=== PATIENT | female | born 1960 | race African-American/Black ===

== ENCOUNTER 2016-11-04 01:58 | Emergency (ER) | payer BC, MEDICAID, OTHER, SELFPAY ==
[2016-11-04] MEDS ORDERED: METOCLOPRAMIDE INJ 10MG/2ML VIAL (J2765) As Ordered ONE (03:09)
[2016-11-04] MEDS ORDERED: MORPHINE 2 MG/ML 1ML SYRINGE As Ordered ONE (03:09)
[2016-11-04 03:36] LABS: BASO % 0.5 % (0.0-1.0); EOS # 0.1 K/mm3 (0.0-0.50); EOS % 2.8 % (0.0-3.0); LARGE UNSTAINED CELL # 0.1 K/mm3 (0.0-0.4); LARGE UNSTAINED CELL % 2.3 % (0.0-4.0); LYMPH # 1.2 K/mm3 (1.5-4.5); LYMPH % 28.8 % (24.0-44.0); MEAN CORPUSCULAR HEMOGLOBIN 31.4 pg (27.0-33.0); MEAN CORPUSCULAR HGB CONC 32.9 g/dl (32.0-36.5); MEAN CORPUSCULAR VOLUME 95.3 fl (80.0-96.0); MONO # 0.2 K/mm3 (0.0-0.8); NEUTROPHILS # 2.5 K/mm3 (1.8-7.7); NEUTROPHILS % 60.6 % (36.0-66.0); PLATELET COUNT, AUTOMATED 230 k/mm3 (150-450); RED CELL DISTRIBUTION WIDTH 12.6 % (11.5-14.5); WHITE BLOOD COUNT 4.1 K/mm3 (4.0-10.0)
[2016-11-04 03:46] LABS: ALBUMIN 3.9 GM/DL (3.2-5.2); ALBUMIN/GLOBULIN RATIO 1.18 (1.00-1.93); ALKALINE PHOSPHATASE 87 U/L (45-117); ALT/SGPT 33 U/L (12-78); AMYLASE 71 U/L (25-115); ANION GAP 10 MEQ/L (8-16); AST/SGOT 30 U/L (15-37); BILIRUBIN,DIRECT < 0.1 MG/DL (0.0-0.2); BILIRUBIN,TOTAL 0.2 MG/DL (0.2-1.0); BLOOD UREA NITROGEN 13 MG/DL (7-18); CALCIUM LEVEL 8.1 MG/DL (8.5-10.1); CARBON DIOXIDE LEVEL 23 MEQ/L (21-32); CHLORIDE LEVEL 112 MEQ/L (98-107); CREATININE FOR GFR 0.98 MG/DL (0.55-1.02); GLOMERULAR FILTRATION RATE > 60.0 (>51); GLUCOSE, FASTING 126 MG/DL (70-105); POTASSIUM SERUM 3.9 MEQ/L (3.5-5.1); SODIUM LEVEL 145 MEQ/L (136-145); TOTAL PROTEIN 7.2 GM/DL (6.4-8.2)
--- NOTE | 2016-11-04 06:59 | EDDOCDS ---
Nurse's Notes [facility] Name: Paty Leon Age: 56 yrs Sex: Female : 1960 Arrival Date: 11/04/2016 Time: 01:58 Bed 8 Private MD: Diagnosis: Other specified noninfective gastroenteritis and colitis Presentation: 11/04 02:02 Presenting complaint: Patient states: she has had nausea and vomiting all day started cz with diarrhea tonight, headache about 20 minutes ago no illness at home but co-workers having same issues. Adult Sepsis Screening: The patient does not have new or worsening altered mentation. Patient's respiratory rate is less than 22. Systolic blood pressure is greater than 100. Patient has a qSOFA score of 0- Negative Sepsis Screen. Suicide/Homicide risk assessment- the patient denies having any suicidal and/or homicidal ideations and does not present with any other emotional, behavioral or mental health complaints. Status: Patient is not a support service tech or dependent. Transition of care: patient was not received from another setting of care. 02:02 Acuity: SARA Level 3 cz 02:02 Method Of Arrival: Walkin/Carried/Asstd cz Triage Assessment: 02:06 General: Appears uncomfortable, Behavior is appropriate for age. Pain: Location: face cz Pain currently is 10 out of 10 on a pain scale. HIV screening NA for this visit Offered previously. 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 medication for high blood pressure - PMHx: Hypertension; - PSHx: none; - Social history: Smoking status: Patient uses tobacco products, light tobacco smoker. No barriers to communication noted, The patient speaks fluent Divehi, Speaks appropriately for age. - Family history: Not pertinent. - : The pt / caregiver states he / she is not on anticoagulants. Home medication list is obtained from the patient. - Exposure Risk Screening:: None identified. Screenin:32 Screening information is obtained from the patient. Fall risk: At risk due to. ko2 Assistance ADL's: requires no assistance with activities of daily living. Abuse/DV Screen: The patient / caregiver reports he/she is: not in a situation that causes fear, pain or injury. Nutritional screening: No deficits noted. Advance Directives: Currently, there is no health care proxy. There is no active DNR order. There is no living will. There is no Power of Mortgage Loan Specialist. home support is adequate. Assessment: 02:31 General: Appears in no apparent distress, Behavior is appropriate for age, cooperative. ko2 Pain: Location: head and abdomen Pain currently is 8 out of 10 on a pain scale. Neurological: Level of Consciousness is awake, alert. Respiratory: Airway is patent Respiratory effort is even, unlabored. GI: Abdomen is non- distended Bowel sounds present X 4 quads. Abd is soft and non tender Reports diarrhea, nausea, vomiting. Derm: Skin is normal. Musculoskeletal: Range of motion intact in all extremities. 03:30 General: Appears in no apparent distress, Behavior is appropriate for age, cooperative. ko2 Pain: Location: abdomen. Neurological: Level of Consciousness is awake, alert. Respiratory: Airway is patent Respiratory effort is even, unlabored. Derm: Skin is normal. 04:30 General: Appears in no apparent distress, Behavior is appropriate for age, cooperative. ko2 Neurological: Level of Consciousness is awake, alert. Respiratory: Airway is patent Respiratory effort is even, unlabored. Derm: Skin is normal. 05:22 General: Appears in no apparent distress, pt currently appears to be asleep on the ko2 stretcher, respirations unlabored. No concerns at this time. . 06:24 General: Appears in no apparent distress, Behavior is appropriate for age, cooperative. ko2 Pain: Location: abdomen. Neurological: Level of Consciousness is awake, alert. Respiratory: Airway is patent Respiratory effort is even, unlabored. Derm: Skin is normal. 06:56 General:. ko2 Vital Signs: 02:06 BP 153 / 78; Pulse 94; Resp 16; Temp 96.4; Pulse Ox 97% on R/A; Weight 63.5 kg; Height cz 5 ft. 3 in. (160.02 cm); 03:14 BP 142 / 78 (auto/); ko2 03:15 Pulse 90 MON; Pulse Ox 97% ; ko2 03:34 BP 140 / 65 (auto/); ko2 03:34 Pulse 94 MON; Pulse Ox 96% ; ko2 03:54 BP 126 / 61 (auto/); ko2 03:54 Pulse 92 MON; Pulse Ox 92% ; ko2 04:14 BP 136 / 72 (auto/); ko2 04:14 Pulse 92 MON; Pulse Ox 93% ; ko2 04:34 BP 151 / 73 (auto/); ko2 04:34 Pulse 92 MON; Pulse Ox 94% ; ko2 04:53 Pulse 92 MON; Pulse Ox 94% ; ko2 04:54 BP 135 / 78 (auto/); ko2 06:56 BP 110 / 78; Pulse 90; Resp 16; Temp 100(TE); Pulse Ox 97% ; Pain 2/10; ko2 02:06 Body Mass Index 24.80 (63.50 kg, 160.02 cm) cz Vitals: 02:06 Log In Time: November 04, 2016 at 02:00. cz ED Course: 01:59 Patient visited by Celeste Kurtz Reg. hs2 01:59 Patient moved to Waiting hs2 02:01 Patient moved to Triage 1 cz 02:05 Triage Initiated cz 02:08 Katt Hernandez RN is Primary Nurse. cz 02:08 Sheryl Garcia RN is Primary Nurse. cz 02:08 Patient moved to 8 cz 02:21 Lalo Anderson DO is Attending Physician. cs11 02:21 Patient visited by Lalo Anderson DO. cs11 02:32 Inserted saline lock: 20 gauge in right antecubital area and blood collected. The ko2 patient tolerated the procedure well. 03:05 Lipase Sent. ko2 03:05 Amylase Sent. ko2 03:05 Liver Profile Sent. ko2 03:05 MED Profile Sent. ko2 03:05 CBC with Diff Sent. ko2 03:21 Patient visited by Sheryl Garcia RN. ko2 03:33 Patient visited by Sheryl Garcia RN. ko2 04:26 [facility] Payment Agreement was scanned into [employer] and attached to record. [facility] 04:32 Patient visited by Sheryl Garcia RN. ko2 04:40 Primary Nurse role handed off by Katt Hernandez RN ko2 05:12 The patient / caregiver is instructed regarding the plan of care and ED course. ko2 05:22 Patient visited by Sheryl Garcia RN. ko2 06:24 Patient visited by Sheryl Garcia RN. ko2 06:57 Discontinued lock intact, bleeding controlled, pressure dressing applied, No ko2 redness/swelling at site. No procedures done that require assistance. Administered Medications: 03:17 Drug: NS 0.9% 1000 ml [sodium chloride 0.9 % intravenous solution] Route: IV; Rate: mlc bolus; Site: right antecubital; 03:17 Drug: Metoclopramide 10 mg [metoclopramide 5 mg/mL injection solution] Route: IV; Rate: mlc 40 mg/hr; Infused Over: 15 mins; Site: right antecubital; 03:18 Drug: morphine 2 mg [morphine 2 mg/mL intravenous cartridge (1 mL)] Route: IVP; Site: mlc right antecubital; Order Results: Lab Order: CBC with Diff; SPEC'M 11/04/16 02:29 Test: WHITE BLOOD COUNT; Value: 4.1; Range: 4.0-10.0; Units: K/mm3; Status: F Test: RED BLOOD COUNT; Value: 4.27; Range: 4.00-5.40; Units: M/mm3; Status: F Test: HEMOGLOBIN; Value: 13.4; Range: 12.0-16.0; Units: g/dl; Status: F Test: HEMATOCRIT; Value: 40.7; Range: 36.0-47.0; Units: %; Status: F Test: MEAN CORPUSCULAR VOLUME; Value: 95.3; Range: 80.0-96.0; Units: fl; Status: F Test: MEAN CORPUSCULAR HEMOGLOBIN; Value: 31.4; Range: 27.0-33.0; Units: pg; Status: F Test: MEAN CORPUSCULAR HGB CONC; Value: 32.9; Range: 32.0-36.5; Units: g/dl; Status: F Test: RED CELL DISTRIBUTION WIDTH; Value: 12.6; Range: 11.5-14.5; Units: %; Status: F Test: PLATELET COUNT, AUTOMATED; Value: 230; Range: 150-450; Units: k/mm3; Status: F Test: NEUTROPHILS %; Value: 60.6; Range: 36.0-66.0; Units: %; Status: F Test: LYMPH %; Value: 28.8; Range: 24.0-44.0; Units: %; Status: F Test: MONO %; Value: 5.0; Range: 0.0-5.0; Units: %; Status: F Test: EOS %; Value: 2.8; Range: 0.0-3.0; Units: %; Status: F Test: BASO %; Value: 0.5; Range: 0.0-1.0; Units: %; Status: F Test: LARGE UNSTAINED CELL %; Value: 2.3; Range: 0.0-4.0; Units: %; Status: F Test: NEUTROPHILS #; Value: 2.5; Range: 1.8-7.7; Units: K/mm3; Status: F Test: LYMPH #; Value: 1.2; Range: 1.5-4.5; Abnormal: Below low normal; Units: K/mm3; Status: F Test: MONO #; Value: 0.2; Range: 0.0-0.8; Units: K/mm3; Status: F Test: EOS #; Value: 0.1; Range: 0.0-0.50; Units: K/mm3; Status: F Test: BASO #; Value: 0.0; Range: 0.0-0.2; Units: K/mm3; Status: F Test: LARGE UNSTAINED CELL #; Value: 0.1; Range: 0.0-0.4; Units: K/mm3; Status: F Lab Order: [facility]; [facility] 11/04/16 02:29 Test: GLUCOSE, FASTING; Value: 126; Range: 70-105; Abnormal: Above high normal; Units: MG/DL; Status: F Test: BLOOD UREA NITROGEN; Value: 13; Range: 7-18; Units: MG/DL; Status: F Test: CREATININE FOR GFR; Value: 0.98; Range: 0.55-1.02; Units: MG/DL; Status: F Test: GLOMERULAR FILTRATION RATE; Value: > 60.0; Range: >51; Status: F Test: SODIUM LEVEL; Value: 145; Range: 136-145; Units: MEQ/L; Status: F Test: POTASSIUM SERUM; Value: 3.9; Range: 3.5-5.1; Units: MEQ/L; Status: F Test: CHLORIDE LEVEL; Value: 112; Range: 98-107; Abnormal: Above high normal; Units: MEQ/L; Status: F Test: CARBON DIOXIDE LEVEL; Value: 23; Range: 21-32; Units: MEQ/L; Status: F Test: ANION GAP; Value: 10; Range: 8-16; Units: MEQ/L; Status: F Test: CALCIUM LEVEL; Value: 8.1; Range: 8.5-10.1; Abnormal: Below low normal; Units: MG/DL; Status: F Test Note: ; Units are mL/min/1.73 m2 Chronic Kidney Disease Staging per NKF: Stage I & II GFR >=60 Normal to Mildly Decreased Stage III GFR 30-59 Moderately Decreased Stage IV GFR 15-29 Severely Decreased Stage V GFR <15 Very Little GFR Left ESRD GFR <15 on NETWORK SYSTEMS INTEGRATOR Lab Order: Liver Profile; SPEC11/04/16 02:29 Test: AST/SGOT; Value: 30; Range: 15-37; Units: U/L; Status: F Test: ALT/SGPT; Value: 33; Range: 12-78; Units: U/L; Status: F Test: ALKALINE PHOSPHATASE; Value: 87; Range: 45-117; Units: U/L; Status: F Test: BILIRUBIN,TOTAL; Value: 0.2; Range: 0.2-1.0; Units: MG/DL; Status: F Test: BILIRUBIN,DIRECT; Value: < 0.1; Range: 0.0-0.2; Units: MG/DL; Status: F Test: TOTAL PROTEIN; Value: 7.2; Range: 6.4-8.2; Units: GM/DL; Status: F Test: ALBUMIN; Value: 3.9; Range: 3.2-5.2; Units: GM/DL; Status: F Test: ALBUMIN/GLOBULIN RATIO; Value: 1.18; Range: 1.00-1.93; Status: F Lab Order: Amylase; SPEC11/04/16 02:29 Test: AMYLASE; Value: 71; Range: 25-115; Units: U/L; Status: F Lab Order: Lipase; SPEC11/04/16 02:29 Test: LIPASE; Value: 231; Range: 73-393; Units: U/L; Status: F Outcome: 06:38 Discharge ordered by Provider. [facility] 06:57 Discharge Assessment: Patient awake, alert and oriented x 3. No cognitive and/or ko2 functional deficits noted. Patient verbalized understanding of disposition instructions. patient administered narcotics - yes. Pt provided with safe discharge. The following High Risk Discharge criteria are identified: None. Discharged to home ambulatory. Condition: stable. Discharge instructions given to patient, Instructed on discharge instructions, follow up and referral plans. medication usage, Demonstrated understanding of instructions, medications, Pt was receptive of discharge instructions/ teaching. Prescriptions given X 1. No special radiology studies were completed. Property sent home with patient. 06:58 Patient left the ED. ko2 Signatures: Rainer Howard RN RN cz Lalo Anderson DO DO cs11 Kaye Rodríguez RN RN [facility] Sheryl Garcia RN RN ko2 Leatha Sanchez Hillary, Reg Reg hs2 Corrections: (The following items were deleted from the chart) 02:12 02:02 Presenting complaint: Patient states: she has had nausea and vomiting all day and cz started with headache about 20 minutes ago cz MTDD
--- NOTE | 2016-11-04 06:59 | EDDOCDS ---
Physician Documentation [facility] Name: Paty Leon Age: 56 yrs Sex: Female : 1960 Arrival Date: 11/04/2016 Time: 01:58 Bed 8 Private MD: Disposition: 11/04/16 06:38 Discharged to Home/Self Care. Impression: Other specified noninfective gastroenteritis and colitis. - Condition is Stable. - Prescriptions for Reglan 10 mg Oral Tablet - take 1 tablet by ORAL route every 6 hours . take 30 minutes before meals and at bedtime; 100 tablet. - Medication Reconciliation, Local Pharmacy Hours, Work Release Form - 1 day form. - Follow up: Private Physician; When: Call to arrange an appointment; Reason: Recheck today's complaints. - Problem is new. - Symptoms have improved. Historical: - Allergies: No known drug Allergies; - Home Meds: 1. medication for high blood pressure - PMHx: Hypertension; - PSHx: none; - Social history: Smoking status: Patient uses tobacco products, light tobacco smoker. No barriers to communication noted, The patient speaks fluent Malawian, Speaks appropriately for age. - Family history: Not pertinent. - : The pt / caregiver states he / she is not on anticoagulants. Home medication list is obtained from the patient. - Exposure Risk Screening:: None identified. 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 3 in. (160.02 cm); 03:14 BP 142 / 78 (auto/); ko2 03:15 Pulse 90 MON; Pulse Ox 97% ; ko2 03:34 BP 140 / 65 (auto/); ko2 03:34 Pulse 94 MON; Pulse Ox 96% ; ko2 03:54 BP 126 / 61 (auto/); ko2 03:54 Pulse 92 MON; Pulse Ox 92% ; ko2 04:14 BP 136 / 72 (auto/); ko2 04:14 Pulse 92 MON; Pulse Ox 93% ; ko2 04:34 BP 151 / 73 (auto/); ko2 04:34 Pulse 92 MON; Pulse Ox 94% ; ko2 04:53 Pulse 92 MON; Pulse Ox 94% ; ko2 04:54 BP 135 / 78 (auto/); ko2 06:56 BP 110 / 78; Pulse 90; Resp 16; Temp 100(TE); Pulse Ox 97% ; Pain 2/10; ko2 02:06 Body Mass Index 24.80 (63.50 kg, 160.02 cm) cz MDM: 03:00 NS 0.9% 1000 ml IV at bolus once ordered. cs11 03:00 Metoclopramide 10 mg IV at 40 mg/hr once over 15 mins ordered. cs11 03:01 CBC with Diff Ordered. EDMS 03:01 MED Profile Ordered. EDMS 03:01 morphine 2 mg IVP once ordered. cs11 03:01 Liver Profile Ordered. EDMS 03:01 Amylase Ordered. EDMS 03:01 Lipase Ordered. EDMS 03:38 Financial registration complete. [facility] [address] 04:10 CBC with Diff Reviewed. cs11 04:10 MED Profile Reviewed. cs11 04:10 Liver Profile Reviewed. cs11 04:10 Amylase Reviewed. cs11 04:10 Lipase Reviewed. [facility] 04:26 [facility] Payment Agreement was scanned into [employer] and attached to record. [facility] [address] Administered Medications: 03:17 Drug: NS 0.9% 1000 ml [sodium chloride 0.9 % intravenous solution] Route: IV; Rate: mlc bolus; Site: right antecubital; 03:17 Drug: Metoclopramide 10 mg [metoclopramide 5 mg/mL injection solution] Route: IV; Rate: mlc 40 mg/hr; Infused Over: 15 mins; Site: right antecubital; 03:18 Drug: morphine 2 mg [morphine 2 mg/mL intravenous cartridge (1 mL)] Route: IVP; Site: mlc right antecubital; Signatures: Dispatcher [employer] EDMS Rainer Howard RN RN cz Schiff, Craig, DO DO cs11 Sheryl Garcia RN RN ko2 Hook, Sandra [facility] [address] Kaye Rodríguez RN The chart was reviewed and I authenticate all verbal orders and agree with the evaluation and treatment provided.Attachments: 04:26 [facility] Payment Agreement [facility] [address] MTDD
--- NOTE | 2016-11-06 07:59 | EDDOCDS ---
Physician Documentation [facility] Name: Paty Leon Age: 56 yrs Sex: Female : 1960 Arrival Date: 11/04/2016 Time: 01:58 Bed 8 Private MD: Disposition: 11/04/16 06:38 Discharged to Home/Self Care. Impression: Other specified noninfective gastroenteritis and colitis. - Condition is Stable. - Prescriptions for Reglan 10 mg Oral Tablet - take 1 tablet by ORAL route every 6 hours . take 30 minutes before meals and at bedtime; 100 tablet. - Medication Reconciliation, Local Pharmacy Hours, Work Release Form - 1 day form. - Follow up: Private Physician; When: Call to arrange an appointment; Reason: Recheck today's complaints. - Problem is new. - Symptoms have improved. Historical: - Allergies: No known drug Allergies; - Home Meds: 1. medication for high blood pressure - PMHx: Hypertension; - PSHx: none; - Social history: Smoking status: Patient uses tobacco products, light tobacco smoker. No barriers to communication noted, The patient speaks fluent Djiboutian, Speaks appropriately for age. - Family history: Not pertinent. - : The pt / caregiver states he / she is not on anticoagulants. Home medication list is obtained from the patient. - Exposure Risk Screening:: None identified. 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 3 in. (160.02 cm); 03:14 BP 142 / 78 (auto/); ko2 03:15 Pulse 90 MON; Pulse Ox 97% ; ko2 03:34 BP 140 / 65 (auto/); ko2 03:34 Pulse 94 MON; Pulse Ox 96% ; ko2 03:54 BP 126 / 61 (auto/); ko2 03:54 Pulse 92 MON; Pulse Ox 92% ; ko2 04:14 BP 136 / 72 (auto/); ko2 04:14 Pulse 92 MON; Pulse Ox 93% ; ko2 04:34 BP 151 / 73 (auto/); ko2 04:34 Pulse 92 MON; Pulse Ox 94% ; ko2 04:53 Pulse 92 MON; Pulse Ox 94% ; ko2 04:54 BP 135 / 78 (auto/); ko2 06:56 BP 110 / 78; Pulse 90; Resp 16; Temp 100(TE); Pulse Ox 97% ; Pain 2/10; ko2 02:06 Body Mass Index 24.80 (63.50 kg, 160.02 cm) cz MDM: 03:00 NS 0.9% 1000 ml IV at bolus once ordered. cs11 03:00 Metoclopramide 10 mg IV at 40 mg/hr once over 15 mins ordered. cs11 03:01 CBC with Diff Ordered. EDMS 03:01 MED Profile Ordered. EDMS 03:01 morphine 2 mg IVP once ordered. cs11 03:01 Liver Profile Ordered. EDMS 03:01 Amylase Ordered. EDMS 03:01 Lipase Ordered. EDMS 03:38 Financial registration complete. [facility] 04:10 CBC with Diff Reviewed. cs11 04:10 MED Profile Reviewed. cs11 04:10 Liver Profile Reviewed. cs11 04:10 Amylase Reviewed. cs11 04:10 Lipase Reviewed. [facility] 04:26 [facility] Payment Agreement was scanned into [employer] and attached to record. [facility] 15:49 T-Sheet-- Draft Copy was scanned into [employer] and attached to record. klr Administered Medications: 03:17 Drug: NS 0.9% 1000 ml [sodium chloride 0.9 % intravenous solution] Route: IV; Rate: mlc bolus; Site: right antecubital; 03:17 Drug: Metoclopramide 10 mg [metoclopramide 5 mg/mL injection solution] Route: IV; Rate: mlc 40 mg/hr; Infused Over: 15 mins; Site: right antecubital; 03:18 Drug: morphine 2 mg [morphine 2 mg/mL intravenous cartridge (1 mL)] Route: IVP; Site: mlc right antecubital; Signatures: Dispatcher [employer] EDMS Rainer Howard RN RN cz Schiff, Craig, DO DO csSheryl Nguyen RN RN ko2 Hook, Sandra [facility] Jailene Evans Mandy RN [facility] The chart was reviewed and I authenticate all verbal orders and agree with the evaluation and treatment provided.Attachments: 04:26 [facility] Payment Agreement [facility] 15:49 T-Sheet-- Draft Copy klr Chart Complete MTDD
--- NOTE | 2016-11-06 07:59 | EDDOCDS ---
Physician Documentation [facility] Name: Paty Leon Age: 56 yrs Sex: Female : 1960 Arrival Date: 11/04/2016 Time: 01:58 Bed 8 Private MD: Disposition: 11/04/16 06:38 Discharged to Home/Self Care. Impression: Other specified noninfective gastroenteritis and colitis. - Condition is Stable. - Prescriptions for Reglan 10 mg Oral Tablet - take 1 tablet by ORAL route every 6 hours . take 30 minutes before meals and at bedtime; 100 tablet. - Medication Reconciliation, Local Pharmacy Hours, Work Release Form - 1 day form. - Follow up: Private Physician; When: Call to arrange an appointment; Reason: Recheck today's complaints. - Problem is new. - Symptoms have improved. Historical: - Allergies: No known drug Allergies; - Home Meds: 1. medication for high blood pressure - PMHx: Hypertension; - PSHx: none; - Social history: Smoking status: Patient uses tobacco products, light tobacco smoker. No barriers to communication noted, The patient speaks fluent Tongan, Speaks appropriately for age. - Family history: Not pertinent. - : The pt / caregiver states he / she is not on anticoagulants. Home medication list is obtained from the patient. - Exposure Risk Screening:: None identified. 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 3 in. (160.02 cm); 03:14 BP 142 / 78 (auto/); ko2 03:15 Pulse 90 MON; Pulse Ox 97% ; ko2 03:34 BP 140 / 65 (auto/); ko2 03:34 Pulse 94 MON; Pulse Ox 96% ; ko2 03:54 BP 126 / 61 (auto/); ko2 03:54 Pulse 92 MON; Pulse Ox 92% ; ko2 04:14 BP 136 / 72 (auto/); ko2 04:14 Pulse 92 MON; Pulse Ox 93% ; ko2 04:34 BP 151 / 73 (auto/); ko2 04:34 Pulse 92 MON; Pulse Ox 94% ; ko2 04:53 Pulse 92 MON; Pulse Ox 94% ; ko2 04:54 BP 135 / 78 (auto/); ko2 06:56 BP 110 / 78; Pulse 90; Resp 16; Temp 100(TE); Pulse Ox 97% ; Pain 2/10; ko2 02:06 Body Mass Index 24.80 (63.50 kg, 160.02 cm) cz MDM: 03:00 NS 0.9% 1000 ml IV at bolus once ordered. cs11 03:00 Metoclopramide 10 mg IV at 40 mg/hr once over 15 mins ordered. cs11 03:01 CBC with Diff Ordered. EDMS 03:01 MED Profile Ordered. EDMS 03:01 morphine 2 mg IVP once ordered. cs11 03:01 Liver Profile Ordered. EDMS 03:01 Amylase Ordered. EDMS 03:01 Lipase Ordered. EDMS 03:38 Financial registration complete. [facility] 04:10 CBC with Diff Reviewed. cs11 04:10 MED Profile Reviewed. cs11 04:10 Liver Profile Reviewed. cs11 04:10 Amylase Reviewed. cs11 04:10 Lipase Reviewed. [facility] 04:26 [facility] Payment Agreement was scanned into [employer] and attached to record. [facility] 15:49 T-Sheet-- Draft Copy was scanned into [employer] and attached to record. klr Administered Medications: 03:17 Drug: NS 0.9% 1000 ml [sodium chloride 0.9 % intravenous solution] Route: IV; Rate: mlc bolus; Site: right antecubital; 03:17 Drug: Metoclopramide 10 mg [metoclopramide 5 mg/mL injection solution] Route: IV; Rate: mlc 40 mg/hr; Infused Over: 15 mins; Site: right antecubital; 03:18 Drug: morphine 2 mg [morphine 2 mg/mL intravenous cartridge (1 mL)] Route: IVP; Site: mlc right antecubital; Signatures: Dispatcher [employer] EDMS Rainer Howard RN RN cz Schiff, Craig, DO DO csSheryl Nguyen RN RN ko2 Hook, Sandra [facility] Jailene Evans Mandy RN [facility] The chart was reviewed and I authenticate all verbal orders and agree with the evaluation and treatment provided.Attachments: 04:26 [facility] Payment Agreement [facility] 15:49 T-Sheet-- Draft Copy klr Chart Complete MTDD
--- NOTE | 2016-11-06 07:59 | EDDOCDS ---
Nurse's Notes [facility] Name: Paty Leon Age: 56 yrs Sex: Female : 1960 Arrival Date: 11/04/2016 Time: 01:58 Bed 8 Private MD: Diagnosis: Other specified noninfective gastroenteritis and colitis Presentation: 11/04 02:02 Presenting complaint: Patient states: she has had nausea and vomiting all day started cz with diarrhea tonight, headache about 20 minutes ago no illness at home but co-workers having same issues. Adult Sepsis Screening: The patient does not have new or worsening altered mentation. Patient's respiratory rate is less than 22. Systolic blood pressure is greater than 100. Patient has a qSOFA score of 0- Negative Sepsis Screen. Suicide/Homicide risk assessment- the patient denies having any suicidal and/or homicidal ideations and does not present with any other emotional, behavioral or mental health complaints. 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 Transition of care: patient was not received from another setting of care. 02:02 Acuity: SARA Level 3 cz 02:02 Method Of Arrival: Walkin/Carried/Asstd cz Triage Assessment: 02:06 General: Appears uncomfortable, Behavior is appropriate for age. Pain: Location: face cz Pain currently is 10 out of 10 on a pain scale. HIV screening NA for this visit Offered previously. 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 medication for high blood pressure - PMHx: Hypertension; - PSHx: none; - Social history: Smoking status: Patient uses tobacco products, light tobacco smoker. No barriers to communication noted, The patient speaks fluent Arabic, Speaks appropriately for age. - Family history: Not pertinent. - : The pt / caregiver states he / she is not on anticoagulants. Home medication list is obtained from the patient. - Exposure Risk Screening:: None identified. Screenin:32 Screening information is obtained from the patient. Fall risk: At risk due to. ko2 Assistance ADL's: requires no assistance with activities of daily living. Abuse/DV Screen: The patient / caregiver reports he/she is: not in a situation that causes fear, pain or injury. Nutritional screening: No deficits noted. Advance Directives: Currently, there is no health care proxy. There is no active DNR order. There is no living will. There is no Power of Electronic Imager. home support is adequate. Assessment: 02:31 General: Appears in no apparent distress, Behavior is appropriate for age, cooperative. ko2 Pain: Location: head and abdomen Pain currently is 8 out of 10 on a pain scale. Neurological: Level of Consciousness is awake, alert. Respiratory: Airway is patent Respiratory effort is even, unlabored. GI: Abdomen is non- distended Bowel sounds present X 4 quads. Abd is soft and non tender Reports diarrhea, nausea, vomiting. Derm: Skin is normal. Musculoskeletal: Range of motion intact in all extremities. 03:30 General: Appears in no apparent distress, Behavior is appropriate for age, cooperative. ko2 Pain: Location: abdomen. Neurological: Level of Consciousness is awake, alert. Respiratory: Airway is patent Respiratory effort is even, unlabored. Derm: Skin is normal. 04:30 General: Appears in no apparent distress, Behavior is appropriate for age, cooperative. ko2 Neurological: Level of Consciousness is awake, alert. Respiratory: Airway is patent Respiratory effort is even, unlabored. Derm: Skin is normal. 05:22 General: Appears in no apparent distress, pt currently appears to be asleep on the ko2 stretcher, respirations unlabored. No concerns at this time. . 06:24 General: Appears in no apparent distress, Behavior is appropriate for age, cooperative. ko2 Pain: Location: abdomen. Neurological: Level of Consciousness is awake, alert. Respiratory: Airway is patent Respiratory effort is even, unlabored. Derm: Skin is normal. 06:56 General:. ko2 Vital Signs: 02:06 BP 153 / 78; Pulse 94; Resp 16; Temp 96.4; Pulse Ox 97% on R/A; Weight 63.5 kg; Height cz 5 ft. 3 in. (160.02 cm); 03:14 BP 142 / 78 (auto/); ko2 03:15 Pulse 90 MON; Pulse Ox 97% ; ko2 03:34 BP 140 / 65 (auto/); ko2 03:34 Pulse 94 MON; Pulse Ox 96% ; ko2 03:54 BP 126 / 61 (auto/); ko2 03:54 Pulse 92 MON; Pulse Ox 92% ; ko2 04:14 BP 136 / 72 (auto/); ko2 04:14 Pulse 92 MON; Pulse Ox 93% ; ko2 04:34 BP 151 / 73 (auto/); ko2 04:34 Pulse 92 MON; Pulse Ox 94% ; ko2 04:53 Pulse 92 MON; Pulse Ox 94% ; ko2 04:54 BP 135 / 78 (auto/); ko2 06:56 BP 110 / 78; Pulse 90; Resp 16; Temp 100(TE); Pulse Ox 97% ; Pain 2/10; ko2 02:06 Body Mass Index 24.80 (63.50 kg, 160.02 cm) cz Vitals: 02:06 Log In Time: November 04, 2016 at 02:00. cz ED Course: 01:59 Patient visited by Celeste Kurtz Reg. hs2 01:59 Patient moved to Waiting hs2 02:01 Patient moved to Triage 1 cz 02:05 Triage Initiated cz 02:08 Katt Hernandez RN is Primary Nurse. cz 02:08 Sheryl Garcia RN is Primary Nurse. cz 02:08 Patient moved to 8 cz 02:21 Lalo Anderson DO is Attending Physician. cs11 02:21 Patient visited by Lalo Anderson DO. cs11 02:32 Inserted saline lock: 20 gauge in right antecubital area and blood collected. The ko2 patient tolerated the procedure well. 03:05 Lipase Sent. ko2 03:05 Amylase Sent. ko2 03:05 Liver Profile Sent. ko2 03:05 MED Profile Sent. ko2 03:05 CBC with Diff Sent. ko2 03:21 Patient visited by Sheryl Garcia RN. ko2 03:33 Patient visited by Sheryl Garcia RN. ko2 04:26 [facility] Payment Agreement was scanned into [employer] and attached to record. [facility] 04:32 Patient visited by Sheryl Garcia RN. ko2 04:40 Primary Nurse role handed off by Katt Hernandez RN ko2 05:12 The patient / caregiver is instructed regarding the plan of care and ED course. ko2 05:22 Patient visited by Sheryl Garcia RN. ko2 06:24 Patient visited by Sheryl Garcia RN. ko2 06:57 Discontinued lock intact, bleeding controlled, pressure dressing applied, No ko2 redness/swelling at site. No procedures done that require assistance. 15:49 T-Sheet-- Draft Copy was scanned into [employer] and attached to record. klr Administered Medications: 03:17 Drug: NS 0.9% 1000 ml [sodium chloride 0.9 % intravenous solution] Route: IV; Rate: mlc bolus; Site: right antecubital; 03:17 Drug: Metoclopramide 10 mg [metoclopramide 5 mg/mL injection solution] Route: IV; Rate: mlc 40 mg/hr; Infused Over: 15 mins; Site: right antecubital; 03:18 Drug: morphine 2 mg [morphine 2 mg/mL intravenous cartridge (1 mL)] Route: IVP; Site: mlc right antecubital; Order Results: Lab Order: CBC with Diff; SPEC'M 11/04/16 02:29 Test: WHITE BLOOD COUNT; Value: 4.1; Range: 4.0-10.0; Units: K/mm3; Status: F Test: RED BLOOD COUNT; Value: 4.27; Range: 4.00-5.40; Units: M/mm3; Status: F Test: HEMOGLOBIN; Value: 13.4; Range: 12.0-16.0; Units: g/dl; Status: F Test: HEMATOCRIT; Value: 40.7; Range: 36.0-47.0; Units: %; Status: F Test: MEAN CORPUSCULAR VOLUME; Value: 95.3; Range: 80.0-96.0; Units: fl; Status: F Test: MEAN CORPUSCULAR HEMOGLOBIN; Value: 31.4; Range: 27.0-33.0; Units: pg; Status: F Test: MEAN CORPUSCULAR HGB CONC; Value: 32.9; Range: 32.0-36.5; Units: g/dl; Status: F Test: RED CELL DISTRIBUTION WIDTH; Value: 12.6; Range: 11.5-14.5; Units: %; Status: F Test: PLATELET COUNT, AUTOMATED; Value: 230; Range: 150-450; Units: k/mm3; Status: F Test: NEUTROPHILS %; Value: 60.6; Range: 36.0-66.0; Units: %; Status: F Test: LYMPH %; Value: 28.8; Range: 24.0-44.0; Units: %; Status: F Test: MONO %; Value: 5.0; Range: 0.0-5.0; Units: %; Status: F Test: EOS %; Value: 2.8; Range: 0.0-3.0; Units: %; Status: F Test: BASO %; Value: 0.5; Range: 0.0-1.0; Units: %; Status: F Test: LARGE UNSTAINED CELL %; Value: 2.3; Range: 0.0-4.0; Units: %; Status: F Test: NEUTROPHILS #; Value: 2.5; Range: 1.8-7.7; Units: K/mm3; Status: F Test: LYMPH #; Value: 1.2; Range: 1.5-4.5; Abnormal: Below low normal; Units: K/mm3; Status: F Test: MONO #; Value: 0.2; Range: 0.0-0.8; Units: K/mm3; Status: F Test: EOS #; Value: 0.1; Range: 0.0-0.50; Units: K/mm3; Status: F Test: BASO #; Value: 0.0; Range: 0.0-0.2; Units: K/mm3; Status: F Test: LARGE UNSTAINED CELL #; Value: 0.1; Range: 0.0-0.4; Units: K/mm3; Status: F Lab Order: [facility]; [facility] 11/04/16 02:29 Test: GLUCOSE, FASTING; Value: 126; Range: 70-105; Abnormal: Above high normal; Units: MG/DL; Status: F Test: BLOOD UREA NITROGEN; Value: 13; Range: 7-18; Units: MG/DL; Status: F Test: CREATININE FOR GFR; Value: 0.98; Range: 0.55-1.02; Units: MG/DL; Status: F Test: GLOMERULAR FILTRATION RATE; Value: > 60.0; Range: >51; Status: F Test: SODIUM LEVEL; Value: 145; Range: 136-145; Units: MEQ/L; Status: F Test: POTASSIUM SERUM; Value: 3.9; Range: 3.5-5.1; Units: MEQ/L; Status: F Test: CHLORIDE LEVEL; Value: 112; Range: 98-107; Abnormal: Above high normal; Units: MEQ/L; Status: F Test: CARBON DIOXIDE LEVEL; Value: 23; Range: 21-32; Units: MEQ/L; Status: F Test: ANION GAP; Value: 10; Range: 8-16; Units: MEQ/L; Status: F Test: CALCIUM LEVEL; Value: 8.1; Range: 8.5-10.1; Abnormal: Below low normal; Units: MG/DL; Status: F Test Note: ; Units are mL/min/1.73 m2 Chronic Kidney Disease Staging per NKF: Stage I & II GFR >=60 Normal to Mildly Decreased Stage III GFR 30-59 Moderately Decreased Stage IV GFR 15-29 Severely Decreased Stage V GFR <15 Very Little GFR Left ESRD GFR <15 on DIRECTOR OF COMMUNITY SERVICES Lab Order: Liver Profile; SPEC11/04/16 02:29 Test: AST/SGOT; Value: 30; Range: 15-37; Units: U/L; Status: F Test: ALT/SGPT; Value: 33; Range: 12-78; Units: U/L; Status: F Test: ALKALINE PHOSPHATASE; Value: 87; Range: 45-117; Units: U/L; Status: F Test: BILIRUBIN,TOTAL; Value: 0.2; Range: 0.2-1.0; Units: MG/DL; Status: F Test: BILIRUBIN,DIRECT; Value: < 0.1; Range: 0.0-0.2; Units: MG/DL; Status: F Test: TOTAL PROTEIN; Value: 7.2; Range: 6.4-8.2; Units: GM/DL; Status: F Test: ALBUMIN; Value: 3.9; Range: 3.2-5.2; Units: GM/DL; Status: F Test: ALBUMIN/GLOBULIN RATIO; Value: 1.18; Range: 1.00-1.93; Status: F Lab Order: Amylase; SPEC'11/04/16 02:29 Test: AMYLASE; Value: 71; Range: 25-115; Units: U/L; Status: F Lab Order: Lipase; SPEC'11/04/16 02:29 Test: LIPASE; Value: 231; Range: 73-393; Units: U/L; Status: F Outcome: 06:38 Discharge ordered by Provider. [facility] 06:57 Discharge Assessment: Patient awake, alert and oriented x 3. No cognitive and/or ko2 functional deficits noted. Patient verbalized understanding of disposition instructions. patient administered narcotics - yes. Pt provided with safe discharge. The following High Risk Discharge criteria are identified: None. Discharged to home ambulatory. Condition: stable. Discharge instructions given to patient, Instructed on discharge instructions, follow up and referral plans. medication usage, Demonstrated understanding of instructions, medications, Pt was receptive of discharge instructions/ teaching. Prescriptions given X 1. No special radiology studies were completed. Property sent home with patient. 06:58 Patient left the ED. ko2 Signatures: Rainer Howard, RN RN cz Lalo Anderson, DO cs11 Kaye RodríguezRN RN mlc Sheryl Garcia RN RN ko2 Leatha Sanchez Hillary, Arturo Reg hs2 Jailene Evans Corrections: (The following items were deleted from the chart) 02:12 02:02 Presenting complaint: Patient states: she has had nausea and vomiting all day and cz started with headache about 20 minutes ago cz Chart Complete MTDD
== END 2016-11-04 06:58 | disposition home or self-care (01) ==
LOC: M ED 01:58
DX: K52.9 Noninfective gastroenteritis and colitis, unspecified (principal); I10 Essential (primary) hypertension; F17.200 Nicotine dependence, unspecified, uncomplicated
CPT/HCPCS: 36415; 80048; 80076; 82150; 83690; 85025; 96374; 96375; 99284; J2765

== ENCOUNTER → 2017-10-03 | Outpatient (REF) | payer BC ==
[2017-10-03 12:04] LABS: ALBUMIN 4.3 GM/DL (3.2-5.2); ALBUMIN/GLOBULIN RATIO 1.16 (1.00-1.93); ALKALINE PHOSPHATASE 78 U/L (45-117); ALT/SGPT 21 U/L (12-78); ANION GAP 10 MEQ/L (8-16); AST/SGOT 26 U/L (7-37); BILIRUBIN,TOTAL 0.5 MG/DL (0.2-1.0); BLOOD UREA NITROGEN 29 MG/DL (7-18); CALCIUM LEVEL 9.3 MG/DL (8.5-10.1); CARBON DIOXIDE LEVEL 21 MEQ/L (21-32); CHLORIDE LEVEL 108 MEQ/L (98-107); CHOLESTEROL LEVEL 271 MG/DL (<200); CREATININE FOR GFR 1.29 MG/DL (0.55-1.02); GLOMERULAR FILTRATION RATE 55.1 (>51); GLUCOSE, FASTING 78 MG/DL (70-105); HDL CHOLESTEROL 49 MG/DL (>40); LDL CHOLESTEROL 195.8 MG/DL (<100); NON-HDL-C 222 MG/DL; POTASSIUM SERUM 4.7 MEQ/L (3.5-5.1); SODIUM LEVEL 139 MEQ/L (136-145); TRIGLYCERIDES LEVEL 131 MG/DL (<150)
[2017-10-03 12:24] LABS: BASO % 0.3 % (0.0-1.0); EOS # 0.2 10^3/uL (0.0-0.50); EOS % 2.4 % (0.0-3.0); HEMATOCRIT 35.4 % (36.0-47.0); HEMOGLOBIN 11.9 g/dl (12.0-16.0); IMMATURE GRANULOCYTE % 0.3 % (0-0); LYMPH # 1.5 10^3/uL (1.5-4.5); MEAN CORPUSCULAR HEMOGLOBIN 31.6 pg (27.0-33.0); MEAN CORPUSCULAR HGB CONC 33.6 g/dl (32.0-36.5); MEAN CORPUSCULAR VOLUME 94.1 fl (80.0-96.0); MONO # 0.4 10^3/uL (0.0-0.8); MONO % 7.2 % (0.0-5.0); NEUTROPHILS % 64.8 % (36.0-66.0); PLATELET COUNT, AUTOMATED 264 10^3/uL (150-450); RED BLOOD COUNT 3.76 10^6/uL (4.00-5.40); RED CELL DISTRIBUTION WIDTH 13.1 % (11.5-14.5); WHITE BLOOD COUNT 6.2 10^3/uL (4.0-10.0)
== END ==
LOC: M SFHCPLAZ 09:19
DX: I10 Essential (primary) hypertension (principal); Z13.220 Encounter for screening for lipoid disorders
CPT/HCPCS: 80053

== ENCOUNTER → 2017-10-25 | Outpatient (CLI) | payer BC | LOC: M RAD 09:55 | DX: I73.9 Peripheral vascular disease, unspecified (principal) | CPT/HCPCS: 93923 ==

== ENCOUNTER → 2018-01-14 | Outpatient (CLI) | payer BC | LOC: M WHC 15:34 | DX: Z12.31 Encounter for screening mammogram for malignant neoplasm of breast (principal); R92.8 Other abnormal and inconclusive findings on diagnostic imaging of breast | CPT/HCPCS: 77067 ==

== ENCOUNTER → 2018-01-22 | Outpatient (CLI) | payer BC | LOC: M RAD 09:28 | DX: Z12.31 Encounter for screening mammogram for malignant neoplasm of breast (principal) | CPT/HCPCS: 77065 ==

== ENCOUNTER 2018-08-17 11:47 | Emergency (ER) | payer OTHER, BC ==
[2018-08-17] MEDS: TETRACAINE 0.5% OPHTH SOLN 4ML OU (13:00)
[2018-08-17] MEDS: LISSAMINE GREEN OPHTH 1.5 MG STRIP OS (13:00)
== END 2018-08-17 14:19 | disposition home or self-care (01) ==
LOC: M ED 11:47
DX: H57.12 Ocular pain, left eye (principal); Z98.890 Other specified postprocedural states; I10 Essential (primary) hypertension; F17.200 Nicotine dependence, unspecified, uncomplicated; Z79.899 Other long term (current) drug therapy
CPT/HCPCS: 99283

== ENCOUNTER 2018-08-26 09:49 | Emergency (ER) | payer OTHER, BC ==
[2018-08-26] MEDS: TETRACAINE 0.5% OPHTH SOLN 4ML OS (11:40)
[2018-08-26] MEDS: FLUORESCEIN OPHTH 1 MG STRIP OS (11:40)
[2018-08-26] MEDS ORDERED: ERYTHROMYCIN OPHTH OINT OS (12:00)
== END 2018-08-26 12:01 | disposition home or self-care (01) ==
LOC: M ED 09:49
DX: H10.89 Other conjunctivitis (principal); I10 Essential (primary) hypertension; Z79.899 Other long term (current) drug therapy; Z79.82 Long term (current) use of aspirin; F17.210 Nicotine dependence, cigarettes, uncomplicated
CPT/HCPCS: 99283

== ENCOUNTER 2018-09-02 09:42 | Emergency (ER) | payer OTHER, BC ==
[2018-09-02] MEDS: FLUORESCEIN OPHTH 1 MG STRIP OS (10:15)
[2018-09-02] MEDS: TETRACAINE 0.5% OPHTH SOLN 4ML OS (10:15)
== END 2018-09-02 11:23 | disposition home or self-care (01) ==
LOC: M ED 09:42
DX: H01.005 Unspecified blepharitis left lower eyelid (principal); Z79.82 Long term (current) use of aspirin; F17.210 Nicotine dependence, cigarettes, uncomplicated
CPT/HCPCS: 99283

== ENCOUNTER → 2019-03-16 | Outpatient (CLI) | payer BC ==
[~2019-03-16] MED LIST: AMLO5TAB6 PO; ASPI81TA85 PO; ERYTOIN8 OS
[2019-03-16 08:31] LABS: BASO # 0.1 10^3/uL (0.0-0.2); BASO % 0.9 % (0.0-1.0); EOS # 0.4 10^3/uL (0.0-0.50); HEMATOCRIT 39.9 % (36.0-47.0); HEMOGLOBIN 13.3 g/dl (12.0-15.5); LYMPH % 34.9 % (24.0-44.0); MEAN CORPUSCULAR HEMOGLOBIN 30.4 pg (27.0-33.0); MEAN CORPUSCULAR HGB CONC 33.3 g/dl (32.0-36.5); MEAN CORPUSCULAR VOLUME 91.3 fl (80.0-96.0); MONO # 0.4 10^3/uL (0.0-0.8); MONO % 7.7 % (0.0-5.0); NEUTROPHILS # 2.8 10^3/uL (1.8-7.7); NEUTROPHILS % 49.3 % (36.0-66.0); PLATELET COUNT, AUTOMATED 269 10^3/uL (150-450); RED BLOOD COUNT 4.37 10^6/uL (4.00-5.40); WHITE BLOOD COUNT 5.7 10^3/uL (4.0-10.0)
[2019-03-16 09:01] LABS: ALBUMIN 4.2 GM/DL (3.2-5.2); ALT/SGPT 38 U/L (12-78); BILIRUBIN,TOTAL 0.3 MG/DL (0.2-1.0); BLOOD UREA NITROGEN 19 MG/DL (7-18); CALCIUM LEVEL 9.2 MG/DL (8.5-10.1); CARBON DIOXIDE LEVEL 25 MEQ/L (21-32); CHLORIDE LEVEL 110 MEQ/L (98-107); CHOLESTEROL LEVEL 210 MG/DL (<200); CPK CREATINE PHOSPHOKINASE 398 U/L (26-192); CREATININE FOR GFR 0.85 MG/DL (0.55-1.30); GLOMERULAR FILTRATION RATE > 60.0 (>51); GLUCOSE, FASTING 90 MG/DL (70-100); HDL CHOLESTEROL 56 MG/DL (>40); LDL CHOLESTEROL 125 MG/DL (<100); NON-HDL-C 154 MG/DL; POTASSIUM SERUM 4.2 MEQ/L (3.5-5.1); SODIUM LEVEL 142 MEQ/L (136-145); TOTAL PROTEIN 7.4 GM/DL (6.4-8.2); TRIGLYCERIDES LEVEL 146 MG/DL (<150)
== END ==
LOC: M LAB 08:08
PROVIDERS: ATTEND Physician Assistant Medical
DX: K21.9 Gastro-esophageal reflux disease without esophagitis (principal); E78.00 Pure hypercholesterolemia, unspecified

== ENCOUNTER → 2019-03-25 | Outpatient (REF) | payer BC | LOC: M SFHCWAGY 14:42 | PROVIDERS: ATTEND Nurse Practitioner Family | DX: Z12.72 Encounter for screening for malignant neoplasm of vagina (principal); R87.625 Unsatisfactory cytologic smear of vagina ==

== ENCOUNTER 2019-04-17 09:53 | Emergency (ER) | payer BC ==
[~2019-04-17] VITALS: Ht 160 cm; Wt 67.3 kg
[2019-04-17 10:16] LABS: BASO # 0.1 10^3/uL (0.0-0.2); BASO % 0.8 % (0.0-1.0); EOS # 0.4 10^3/uL (0.0-0.50); HEMATOCRIT 39.2 % (36.0-47.0); HEMOGLOBIN 13.5 g/dl (12.0-15.5); LYMPH # 3.5 10^3/uL (1.5-4.5); LYMPH % 39.5 % (24.0-44.0); MEAN CORPUSCULAR HEMOGLOBIN 32.1 pg (27.0-33.0); MEAN CORPUSCULAR HGB CONC 34.4 g/dl (32.0-36.5); MEAN CORPUSCULAR VOLUME 93.3 fl (80.0-96.0); MONO # 0.9 10^3/uL (0.0-0.8); MONO % 9.7 % (0.0-5.0); NEUTROPHILS # 3.9 10^3/uL (1.8-7.7); NEUTROPHILS % 44.7 % (36.0-66.0); PLATELET COUNT, AUTOMATED 286 10^3/uL (150-450); WHITE BLOOD COUNT 8.7 10^3/uL (4.0-10.0)
[2019-04-17] MEDS ORDERED: SIMV20TA2 PO (10:26)
[2019-04-17] MEDS ORDERED: HYDR25TAB PO (10:26)
[2019-04-17] MEDS ORDERED: VALS1TAB68 PO (10:26)
[2019-04-17] MEDS ORDERED: ASPI81TA26 PO (10:26)
[2019-04-17] MEDS ORDERED: METOCLOPRAMIDE INJ 10MG/2ML VIAL (J2765) IV ONE (10:30)
--- NOTE | 2019-04-17 10:33 | REP ---
Portable chest, 10:15 a.m., single AP view with the patient sitting: Comparison is 08/16/2015. There is mild cardiomegaly, unchanged. Lung duncan are clear. Cardiac size is normal. The сергей and remarkable. 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 Impression: Mild cardiomegaly. Lung duncan are clear. Electronically Signed by Sang Bird MD 04/17/2019 10:24 A
[2019-04-17 10:50] LABS: BLOOD UREA NITROGEN 19 MG/DL (7-18); CALCIUM LEVEL 9.8 MG/DL (8.5-10.1); CARBON DIOXIDE LEVEL 20 MEQ/L (21-32); CHLORIDE LEVEL 109 MEQ/L (98-107); CK-MB VALUE MASS 3.4 NG/ML (<3.6); CPK CREATINE PHOSPHOKINASE 322 U/L (26-192); CREATININE FOR GFR 1.13 MG/DL (0.55-1.30); GLOMERULAR FILTRATION RATE > 60.0 (>51); GLUCOSE, FASTING 123 MG/DL (70-100); MB/CK RELATIVE INDEX 1.06 (< OR =4); POTASSIUM SERUM 3.9 MEQ/L (3.5-5.1); SODIUM LEVEL 140 MEQ/L (136-145); TROPONIN I < 0.02 NG/ML (< 0.10)
--- NOTE | 2019-04-17 10:52 | REP ---
CT BRAIN WITHOUT CONTRAST: HISTORY: Syncope. FINDINGS: Preliminary digital disease education specialist radiograph is unremarkable. The bony calvarium is intact on bone window settings. No skull fracture or destructive lesion is seen. Minimal vascular calcification. On soft tissue window settings, there is no evidence of intracranial hemorrhage. Lateral third and fourth ventricles are normal in size and position. There is a small subcentimeter low density area in the periventricular white matter of the left frontal lobe which could be a lacunar infarct or an area of small vessel atherosclerotic change. There are small vessel changes in the periventricular white matter elsewhere. No extra-axial fluid collection or midline shift is seen. No evidence of cortical infarction. IMPRESSION: Subcentimeter low density in the periventricular white matter on the left in the frontal lobe. This may be a lacunar infarct or an area of small vessel atherosclerotic changes. Some vascular calcification. No hemorrhage or mass. Electronically Signed by Terrance Craven MD 04/17/2019 07:20 P
[2019-04-17] MEDS ORDERED: KETOROLAC 30 MG/ML VIAL (J1885) IV ONE (11:00)
[2019-04-17] MEDS ORDERED: LORazepam 2 MG/ML VIAL (J2060) IV ONE (11:00)
[2019-04-17 16:25] LABS: CK-MB VALUE MASS 2.8 NG/ML (<3.6); TROPONIN I 0.04 NG/ML (< 0.10)
[2019-04-17 17:55] VITALS: BP 157/84
--- NOTE | 2019-04-18 05:35 | ECGEPIP ---
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
--- NOTE | 2019-04-18 05:36 | ECGEPIP ---
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
--- NOTE | 2019-04-19 19:45 | ED PDOC ---
Post-Departure Follow-Up salazar li faxed formal report of ct head for fu beccag Juan F Lam MD Apr 19, 2019 19:44
== END 2019-04-17 18:24 | disposition home or self-care (01) ==
LOC: M ED 09:53
DX: F48.8 Other specified nonpsychotic mental disorders (principal); I44.7 Left bundle-branch block, unspecified; I10 Essential (primary) hypertension; G47.00 Insomnia, unspecified; Z79.899 Other long term (current) drug therapy; Z79.82 Long term (current) use of aspirin
CPT/HCPCS: 36415; 70450; 71045; 80048; 82550; 82553; 84443; 84484; 85025; 93005; 93041; 94760; 96374; 96375; 99285; J1885; J2060; J2765

== ENCOUNTER → 2019-05-24 | Outpatient (CLI) | payer BC ==
[~2019-05-24] MED LIST changes: +ASPI81TA26 PO; +HYDR25TAB PO; +SIMV20TA2 PO; +VALS1TAB68 PO
--- NOTE | 2019-05-28 14:38 | SLEEPCENT ---
DATE OF PROCEDURE: 05/24/2019 ORDERED BY: ARIAS Martínez Nocturnal polysomnography was performed for evaluation of sleep physiology in this patient with a history of excessive somnolence and nonrestorative sleep who has the comorbidity of hypertension. 6 hours and 39 minutes of data were reviewed. There were 356.5 minutes of sleep identified. Sleep latency was normal at 15 minutes. Rapid eye movement (REM) latency was short at 30 minutes. Sleep architecture showed some fragmentation. There were 4 REM cycles noted. Overall sleep efficiency was 90.5%. The patient's electrocardiogram showed sinus rhythm, occasional premature ventricular contractions (PVCs), average heart rate 68 beats per minute. Electroencephalogram (EEG) showed normal waveforms for awake and sleep stages. There were 67 respiratory events identified of 10 seconds in duration or greater for an apnea-hypopnea index of 11.3. The events were primarily obstructive not exclusive to sleep stage nor body posture. Arousals from respiratory events occurred 5.7 times per hour and oxygen desaturations were seen into the 80s. There was some limb activity. Limb movement arousal index was 5.4. IMPRESSION: Obstructive sleep apnea syndrome (G47.33). Apnea-hypopnea index 11.3. RECOMMENDATIONS: The patient should be encouraged to return to the sleep disorder center for pressure therapy. In the interim, alcohol and sedative avoidance should be practiced and caution exercised during operation of motor vehicles.
== END ==
LOC: M SLEEP 19:50
PROVIDERS: ATTEND Nurse Practitioner Family
DX: G47.33 Obstructive sleep apnea (adult) (pediatric) (principal)

== ENCOUNTER → 2019-06-22 | Outpatient (CLI) | payer BC ==
--- NOTE | 2019-06-25 14:01 | SLEEPCENT ---
DATE OF PROCEDURE: 06/22/2019 ORDERED BY: ARIAS Martínez Nocturnal polysomnography was performed for the titration of pressure therapy in this patient with obstructive sleep apnea syndrome. Apnea-hypopnea index 11.3. For testing a ResMed AirFit F20 full-face mask of medium size was used; 4 cm of water pressure were applied to the circuit and the lights were extinguished. 10 hours and 3 minutes of data were reviewed. There were 400 minutes of sleep identified. Sleep latency was short at 6.5 minutes. Rapid eye movement (REM) latency was normal at 72 minutes. Sleep architecture was good with 4 REM cycles. Overall sleep efficiency 92.2%. The electrocardiogram showed a sinus rhythm with an average heart rate of 74 beats per minute. Electroencephalogram (EEG) showed normal waveforms for awake and sleep. Respiratory events were optimally palliated with CPAP at a pressure of +8. Remaining measures of sleep physiology were normal. IMPRESSION: Obstructive sleep apnea syndrome (G47.33). RECOMMENDATIONS: Nightly use of pressure therapy 8 cm of water.
== END ==
LOC: M SLEEP 20:00
PROVIDERS: ATTEND Nurse Practitioner Family
DX: G47.33 Obstructive sleep apnea (adult) (pediatric) (principal)

== ENCOUNTER 2019-06-30 07:42 | Emergency (ER) | payer BC ==
[~2019-06-30] VITALS: Ht 160 cm; Wt 78.7 kg
[2019-06-30 08:36] LABS: BASO # 0.1 10^3/uL (0.0-0.2); BASO % 0.9 % (0.0-1.0); EOS # 0.3 10^3/uL (0.0-0.5); EOS % 5.4 % (0.0-3.0); HEMATOCRIT 39.1 % (36.0-47.0); HEMOGLOBIN 13.3 g/dl (12.0-15.5); LYMPH # 1.9 10^3/uL (1.5-5.0); LYMPH % 33.8 % (24.0-44.0); MEAN CORPUSCULAR VOLUME 94.2 fl (80.0-96.0); MONO # 0.6 10^3/uL (0.0-0.8); MONO % 10.1 % (0.0-5.0); NEUTROPHILS # 2.8 10^3/uL (1.5-8.5); NEUTROPHILS % 49.6 % (36.0-66.0); PLATELET COUNT, AUTOMATED 265 10^3/uL (150-450); RED BLOOD COUNT 4.15 10^6/uL (4.00-5.40); WHITE BLOOD COUNT 5.5 10^3/uL (4.0-10.0)
--- NOTE | 2019-06-30 08:42 | REP ---
Chest x-ray: Two views. History: Short of breath. Comparison study: April 17, 2019. Findings: The lungs are somewhat hyperinflated. No infiltrate is seen. There are granulomatous lymph node calcifications anterior to the trachea on the lateral film. A nodular opacity is seen in the right lateral pleural angle unchanged from the comparison study consistent with a benign granuloma. This is also unchanged from 2015 prior radiograph. No infiltrate is seen. There is minimal linear fibrosis in the left base. Heart is not enlarged. The aorta is calcific and somewhat tortuous. Impression: Old granulomatous changes. Linear fibrosis left base. Otherwise no acute disease. Electronically Signed by Terrance Craven MD 06/30/2019 08:34 A
[2019-06-30 09:21] LABS: BLOOD UREA NITROGEN 18 MG/DL (7-18); CALCIUM LEVEL 9.6 MG/DL (8.5-10.1); CARBON DIOXIDE LEVEL 20 MEQ/L (21-32); CHLORIDE LEVEL 106 MEQ/L (98-107); CK-MB VALUE MASS 7.7 NG/ML (<3.6); CPK CREATINE PHOSPHOKINASE 617 U/L (26-192); CREATININE FOR GFR 0.79 MG/DL (0.55-1.30); GLOMERULAR FILTRATION RATE > 60.0 (>51); GLUCOSE, FASTING 92 MG/DL (70-100); MB/CK RELATIVE INDEX 1.25 (< OR =4); POTASSIUM SERUM 4.6 MEQ/L (3.5-5.1); SODIUM LEVEL 137 MEQ/L (136-145); TROPONIN I 0.06 NG/ML (< 0.10)
[2019-06-30 10:54] LABS: CK-MB VALUE MASS 7.5 NG/ML (<3.6); MB/CK RELATIVE INDEX 1.42 (< OR =4); TROPONIN I 0.07 NG/ML (< 0.10)
[2019-06-30] MEDS ORDERED: LORazepam 1 MG TAB PO STA (12:14)
[2019-06-30 15:00] LABS: MB/CK RELATIVE INDEX 1.22 (< OR =4); TROPONIN I 0.09 NG/ML (< 0.10)
[2019-06-30 17:03] VITALS: BP 134/82
--- NOTE | 2019-06-30 20:53 | ECGEPIP ---
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
--- NOTE | 2019-06-30 20:55 | ECGEPIP ---
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
--- NOTE | 2019-06-30 21:00 | ECGEPIP ---
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
== END 2019-06-30 17:05 | disposition home or self-care (01) ==
LOC: M ED 07:42
DX: R07.9 Chest pain, unspecified (principal); F43.20 Adjustment disorder, unspecified; I44.7 Left bundle-branch block, unspecified; I10 Essential (primary) hypertension; G47.30 Sleep apnea, unspecified; F17.200 Nicotine dependence, unspecified, uncomplicated; Z82.49 Family history of ischemic heart disease and other diseases of the circulatory system; Z83.3 Family history of diabetes mellitus; Z82.3 Family history of stroke; Z79.82 Long term (current) use of aspirin; Z79.899 Other long term (current) drug therapy

== ENCOUNTER → 2019-11-06 | Outpatient (REF) | payer BC ==
[~2019-11-06] MED LIST changes: -SIMV20TA2 PO; +SIMV20TA22 PO
== END ==
LOC: M SFHCWAGY 13:02
PROVIDERS: ATTEND Nurse Practitioner Family
DX: R87.615 Unsatisfactory cytologic smear of cervix (principal)
CPT/HCPCS: 87624; G0123

== ENCOUNTER → 2019-12-05 | Outpatient (REF) | payer BC | LOC: M SFHCPLAZ 09:55 | PROVIDERS: ATTEND Physician Assistant Medical | DX: B07.9 Viral wart, unspecified (principal) ==

== ENCOUNTER → 2020-05-18 | Outpatient (REF) | payer BC ==
[~2020-05-18] MED LIST changes: +AMLO1TAB24 PO; -AMLO5TAB6 PO; -ASPI81TA85 PO; +ASPI81TA86 PO
[2020-07-05 21:57] LABS: BASO # 0.1 10^3/uL (0.0-0.2); BASO % 0.7 % (0.0-1.0); EOS # 0.2 10^3/uL (0.0-0.5); EOS % 2.1 % (0.0-3.0); HEMATOCRIT 42.4 % (36.0-47.0); HEMOGLOBIN 14.2 g/dl (12.0-15.5); LYMPH # 1.2 10^3/uL (1.5-5.0); LYMPH % 16.6 % (24.0-44.0); MEAN CORPUSCULAR HEMOGLOBIN 31.4 pg (27.0-33.0); MEAN CORPUSCULAR HGB CONC 33.5 g/dl (32.0-36.5); MEAN CORPUSCULAR VOLUME 93.8 fl (80.0-96.0); MONO # 0.8 10^3/uL (0.0-0.8); MONO % 10.3 % (0.0-5.0); NEUTROPHILS # 5.1 10^3/uL (1.5-8.5); NEUTROPHILS % 69.9 % (36.0-66.0); PLATELET COUNT, AUTOMATED 276 10^3/uL (150-450); RED BLOOD COUNT 4.52 10^6/uL (4.00-5.40); WHITE BLOOD COUNT 7.3 10^3/uL (4.0-10.0)
[2020-07-12 04:54] LABS: ALBUMIN 4.4 GM/DL (3.2-5.2); ALT/SGPT 38 U/L (12-78); BILIRUBIN,TOTAL 0.7 MG/DL (0.2-1.0); BLOOD UREA NITROGEN 23 MG/DL (7-18); CALCIUM LEVEL 9.9 MG/DL (8.5-10.1); CARBON DIOXIDE LEVEL 25 MEQ/L (21-32); CHLORIDE LEVEL 104 MEQ/L (98-107); CPK CREATINE PHOSPHOKINASE 219 U/L (26-192); CREATININE FOR GFR 1.12 MG/DL (0.55-1.30); GLOMERULAR FILTRATION RATE > 60.0 (>51); GLUCOSE, FASTING 96 MG/DL (70-100); POTASSIUM SERUM 4.5 MEQ/L (3.5-5.1); SODIUM LEVEL 136 MEQ/L (136-145); TOTAL PROTEIN 7.6 GM/DL (6.4-8.2)
== END ==
LOC: M SFHCPLAZ 09:19
PROVIDERS: ATTEND Physician Assistant Medical
DX: I10 Essential (primary) hypertension (principal)

== ENCOUNTER 2020-10-29 07:12 | Emergency (ER) | payer BC ==
[~2020-10-29] VITALS: Ht 160 cm; Wt 72.7 kg
[2020-10-29] MEDS ORDERED: KETOROLAC 30 MG/ML 1ML VIAL IV ONE (08:00)
[2020-10-29] MEDS ORDERED: LR 1,000 ML IV SCH (08:00)
[2020-10-29 08:28] LABS: BASO # 0.1 10^3/uL (0.0-0.2); EOS # 0.3 10^3/uL (0.0-0.5); EOS % 4.6 % (0.0-3.0); HEMATOCRIT 40.3 % (36.0-47.0); HEMOGLOBIN 13.5 g/dl (12.0-15.5); LYMPH # 1.2 10^3/uL (1.5-5.0); LYMPH % 19.5 % (24.0-44.0); MEAN CORPUSCULAR HEMOGLOBIN 31.5 pg (27.0-33.0); MEAN CORPUSCULAR HGB CONC 33.5 g/dl (32.0-36.5); MEAN CORPUSCULAR VOLUME 93.9 fl (80.0-96.0); MONO # 0.4 10^3/uL (0.0-0.8); MONO % 7.3 % (0.0-5.0); NEUTROPHILS % 66.9 % (36.0-66.0); PLATELET COUNT, AUTOMATED 258 10^3/uL (150-450); RED BLOOD COUNT 4.29 10^6/uL (4.00-5.40)
--- OUTSIDE RECORDS SUMMARY | 2020-10-29 08:42 | CCD ---
Author Author [facility] Organization [facility] Address Unknown Phone Unavailable Support Name Relationship Address Phone EDGAR COELHO GUAR [address] [address] CO[address]HO[address] ECON [address] [place], [place] [address] Care Team Providers Care Mechanical Integrity Specialist Name Role Phone KarlaKateryna guyan Unavailable PROBLEMS Type Condition ICD9-CM Code [id number] Code Onset Dates Condition S tatus SNOMED Code Notes Problem Cervical cancer screening Z12.4 Active 013824 001 Problem Breast cancer screening Z12.31 Active 47985603 1 Problem Claudication in peripheral vascular disease I73.9 Active 03062752 Problem Primary insomnia F51.01 Active 8823053 Problem Essential hypertension I10 Active 67452315 Problem Sequela of lacunar infarction I69.30 Active 33 433073027786 Problem Lipid screening Z13.220 Active 929655544 Problem Pure hypercholesterolemia E78.00 Active 491578 004 Problem Gastroesophageal reflux disease, esophagitis pre sence not specified K21.9 Active 905488138 Problem Tobacco use Z72.0 Active 540102270 Problem Sleep-disordered breathing G47.30 Active 17924 8000 ALLERGIES No Known Allergies ENCOUNTERS from 1960 to 2020-08-30 Encounter Location Date Provider Diagnosis [address] [address] Jul, Nati Hook IMMUNIZATIONS Vaccine Route Administration Date Status Influenza (6mo & up) Fluzone Unknown Sep 10, 2017 Oth ers SOCIAL HISTORY Tobacco Use: Social History Observation Description Date Details (start date - stop date) Current Smoker Sex Assigned At : Social History Observation Description Sex Assigned At Unknown Education: Question Answer Notes Level of Education: College 2.5 years college Audit Question Answer Notes Total Score: 5 Interpretation: Alcohol Education Language: Question Answer Notes Languages spoken: Armenian Pentecostal: Question Answer Notes Pent[employer]ostal 03 [facility] Drug and Alcohol Question Answer Notes Total Score: 0 Interpretation: No problems reported Alcohol Screening: Question Answer Notes Did you have a drink containing alcohol in the past year? Ye s Points 2 Interpretation Negative How often did you have six or more drinks on one occas ion in the past year? Never (0 points) How many drinks did you have on a typica l day when you were drinking in the past year? 1 or 2 (0 points) How often did you have a drink containing alcohol in t he past year? Two to four times a month (2 points) Tobacco Use: Question Answer Notes Are you a: current smoker 09/17/19 Patient counseled on the dangers of tobacco use and urged to quit: 11/06/2019 How many cigarettes a day do you smoke? 5 or less Are you interested in quitting? Thinking about quitting Counseled the patient on smoking cessation, education provid ed 11/07/2019 REASON FOR REFERRAL No Information VITAL SIGNS No information MEDICATIONS Medication SIG (Take, Route, Frequency, Duration) Notes Start Da te End Date Status Betamethasone Dipropionate Aug 0.05 % 1 application Ex ternally bid to hands for 30 Days Aug, Active Simvastatin 20 MG TAKE ONE TABLET BY MOUTH ONC E A DAY IN THE EVENING for 90 day(s) Active Metoprolol Succinate 25 MG 1 capsule 2nd time sent 11/06 also Orally Once a day for 90 day(s) Active Adult Aspirin EC Low Strength 81 MG 1 tablet Orally Once a day f or 90 day(s) Active Valsartan 320 MG 1 tablet already sent 11/06/2019 Orally Once a day for 90 Active Hydrochlorothiazide 25 MG 1 tablet in the morning sent already 11/06/2019 Orally Once a day for 90 day(s) Active Triamcinolone Acetonide 0.1 % 1 application to ezcema arms and legs topically Twice a day for 30 Days Active AmLODIPine Besylate 5 MG 1 tablet, repeat once if bp > 140/90; sent on 11/06/2019 already Orally Once a day for 90 day(s) Active PROCEDURES No Information RESULTS No Results REASON FOR VISIT needs appt MEDICAL (GENERAL) HISTORY Type Description Date Medical History HTN 2yrs. now Medical History valer jose luisck score 6.37% Surgical History BTL 1993 Surgical History wisdom teeth extracted under geta Surgical History exploratory laparotomy Surgical History hysterectomy Hospitalization History 3 hospitalizations c each child Goals Section No Information Health Concerns No Information MEDICAL EQUIPMENT No Information MENTAL STATUS No Information FUNCTIONAL STATUS No Information ASSESSMENTS No Information PLAN OF TREATMENT Medication Medication Name Sig Start Date Stop Date Betamethasone Dipropionate Aug 0.05 % 1 application Ex ternally bid to hands for 30 Days Aug, Hydrochlorothiazide 25 MG 1 tablet in the morning sent already 11/06/2019 Orally Once a day for 90 day(s) Metoprolol Succinate 25 MG 1 capsule 2nd time sent 11/06 also Orally Once a day for 90 day(s) Valsartan 320 MG 1 tablet already sent 11/06/2019 Orally Once a da y for 90 AmLODIPine Besylate 5 MG 1 tablet, repeat once if bp > 140/90; sent on 11/06/2019 already Orally Once a day for 90 day(s) Simvastatin 20 MG TAKE ONE TABLET BY MOUTH ONC E A DAY IN THE EVENING for 90 day(s) Adult Aspirin EC Low Strength 81 MG 1 tablet Orally Once a day f or 90 day(s) Next Appt Details Provider Name:Nati Hook, 10-12 03:00:00 PM, [address] [place] [address], [phone], Insurance Providers Payer Name Payer Address Payer Phone Insured Name Patient Relati onship to Insured Coverage Start Date Coverage End Date BCBS [place] MORE PPO [phone] [facility] Antrad Medical [place] [facility] [facility] [id number] EDGAR COELHO
--- OUTSIDE RECORDS SUMMARY | 2020-10-29 08:42 | CCD ---
Author Author [facility] Organization [facility] Address Unknown Phone Unavailable Support Name Relationship Address Phone EDGAR COELHO GUAR [address] [address] [place] COELHO[place] ECON [address] [place] [address] Care Team Providers Care Catering Barista Name Role Phone KarlaKateryna guyan Unavailable PROBLEMS Type Condition ICD9-CM Code [id number] Code Onset Dates Condition S tatus SNOMED Code Notes Problem Cervical cancer screening Z12.4 Active 028979 001 Problem Breast cancer screening Z12.31 Active 76427312 1 Problem Claudication in peripheral vascular disease I73.9 Active 09785369 Problem Primary insomnia F51.01 Active 7832032 Problem Essential hypertension I10 Active 53138561 Problem Sequela of lacunar infarction I69.30 Active 33 682878866112 Problem Lipid screening Z13.220 Active 199035044 Problem Pure hypercholesterolemia E78.00 Active 230522 004 Problem Gastroesophageal reflux disease, esophagitis pre sence not specified K21.9 Active 411378943 Problem Tobacco use Z72.0 Active 882757283 Problem Sleep-disordered breathing G47.30 Active 71218 8000 ALLERGIES No Known Allergies ENCOUNTERS from 1960 to 2020-10-20 Encounter Location Date Provider Diagnosis [address] [address] 12 Oct, 2020 Nati Hook IMMUNIZATIONS Vaccine Route Administration Date [...] Education Language: Question Answer Notes Languages spoken: Vietnamese Synagogue: Question Answer Notes Synagogue 03 Yazdan[employer] Drug and Alcohol Question Answer Notes Total [...] Notes Start Da te End Date Status Simvastatin 20 MG TAKE ONE TABLET BY MOUTH ONC E A DAY IN THE EVENING for 90 day(s) Active Valsartan 320 MG 1 tablet already sent 11/06/2019 Orally On ce a day for 90 day(s) Active Metoprolol Succinate 25 MG 1 capsule 2nd time sent 11/06 also Orally Once a day for 90 day(s) Active Adult Aspirin EC Low Strength 81 MG 1 tablet Orally Once a day Active Betamethasone Dipropionate Aug 0.05 % 1 application Ex ternally bid to hands for 30 Days Aug, Active Hydrochlorothiazide 25 MG 1 tablet in [...] Information RESULTS No Results REASON FOR VISIT Cancel, R/S MEDICAL (GENERAL) HISTORY Type Description Date Medical History HTN 2yrs. now Medical History tyrer antonyzick score 6.37% Surgical History BTL 1993 Surgical History wisdom teeth extracted under geta Surgical History exploratory laparotomy Surgical History hysterectomy Hospitalization History 3 hospitalizations c each child Goals Section No Information Health Concerns No Information MEDICAL EQUIPMENT No Information MENTAL STATUS No Information FUNCTIONAL STATUS No Information ASSESSMENTS No Information PLAN OF TREATMENT Medication Medication Name Sig Start Date Stop Date Simvastatin 20 MG TAKE ONE TABLET BY MOUTH ONC E A DAY IN THE EVENING for 90 day(s) Hydrochlorothiazide 25 MG 1 tablet in the morning sent already 11/06/2019 Orally Once a day for 90 day(s) Metoprolol Succinate 25 MG 1 capsule 2nd time sent 11/06 also Orally Once a day for 90 day(s) Betamethasone Dipropionate Aug 0.05 % 1 application Ex ternally bid to hands for 30 Days Aug, AmLODIPine Besylate 5 MG 1 tablet, repeat once if bp > 140/90; sent on 11/06/2019 already Orally Once a day for 90 day(s) Valsartan 320 MG 1 tablet already sent 11/06/2019 Orally On ce a day for 90 day(s) Adult Aspirin EC Low Strength 81 MG 1 tablet Orally Once a day Next Appt Details Provider Name:Nati Laurita Hook, 11-11 01:00:00 PM, [address] [place] [address], [phone], Insurance Providers Payer Name Payer Address Payer Phone Insured Name Patient Relati onship to Insured Coverage Start Date Coverage End Date BCBS [place] MORE PPO [id number] [facility] [place] [address] EDGAR COELHO
--- OUTSIDE RECORDS SUMMARY | 2020-10-29 08:42 | CCD | Continuity of Care Document ---
Author Author Paty RUSSELL MD Organization Unknown Address [address] [place] [address] Phone [phone] Care Team Providers Care Ceramic Coater Machine Name Role Phone Nati Hook AUTM Problems Active Problems Provider Date Essential hypertension Mikel Russell MD Onset: 020 Social History Type Date Description Comments Sex Unknown ETOH Use Occasionally consumes alcohol Tobacco Use Start: Unknown Patient is a current smoker, smo kes some days 1 pack per week Allergies, Adverse Reactions, Alerts Description No Known Drug Allergies Medications Active Medications SIG Qnty Indications Ordering Provide r Date Naproxen 375mg Tablets take one tablet by mouth twice daily with food/milk (wc) 30tabs S46.012D Mikel Russell MD 06/29/2020 Aspirin Low Dose 81mg Tablets Nati Coello RPA-C Simvastatin 20mg Tablets Nait Hook RPA-C Valsartan 320mg Tablets Take One Tablet By Mouth Every Day Unknown Cyclobenzaprine HCL 10mg Tablets take one tablet by mouth at bedtime (Comp) 30tabs Mikel robb MD Triamcinolone Acetonide 0.1% Ointm ent Apply To Eczema On Arms And Legs Two Times A Day Unknown Hydrochlorothiazide 25mg Tablets Take One Tablet By Mouth Every Morning Unknown Amlodipine Besylate 5mg Tablets Nati Hook RPA-C Prednisone 20mg Tablets Take Three Tablets By Mouth Every Day For 1 Week Then 2 Once Daily For 1 Week Then 1 Once Daily For 1 Week Unknown Aleve 220mg Capsules as neede d Unknown Aspercreme Lidocaine Max Strength 4% Patches Unknown History Medications Meloxicam 15mg Tablets 1 by mouth every day with food or milk (Comp) 30tabs Mikel Russell MD 05/18/2020 - 10/20/2020 Medrol 4mg Tablets dose katina, take as directed on sheet (Comp) 1tabs S46.012A Mikel Russell MD 05/18/2020 - 10/20/2020 Immunizations Description No Information Available Vital Signs Date Vital Result Comment 10/20/2020 3:24pm Body Temperature 96.6 F 05/18/2020 11:01am Body Temperature 96.6 F Height 63 inches 5'3" Weight 142.00 lb BMI (Body Mass Index) 25.2 kg/m2 Results Description No Information Available Procedures Date Code Description Status 08/05/2020 44575 Therapeutic Procedure, Each 15 M inutes Completed 08/05/2020 37356 Therapeutic Procedure, Each 15 M inutes Completed 07/26/2020 58438 Therapeutic Procedure, Each 15 M inutes Completed 07/26/2020 88504 Therapeutic Procedure, Each 15 M inutes Completed 07/22/2020 35546 Therapeutic Procedure, Each 15 M inutes Completed 07/19/2020 38950 Therapeutic Procedure, Each 15 M inutes Completed 07/19/2020 27187 Therapeutic Procedure, Each 15 M inutes Completed 07/14/2020 55779 Re-Eval Of PT Establ ished Plan Of Care 20Mins Face To Face PT/Fam Completed 07/14/2020 82524 Therapeutic Procedure, Each 15 M inutes Completed 07/14/2020 36580 Therapeutic Procedure, Each 15 M inutes Completed 07/08/2020 13221 Therapeutic Procedure, Each 15 M inutes Completed 07/08/2020 63653 Therapeutic Procedure, Each 15 M inutes Completed 07/05/2020 20188 Therapeutic Procedure, Each 15 M inutes Completed 07/05/2020 32932 Therapeutic Procedure, Each 15 M inutes Completed 07/02/2020 95325 Therapeutic Procedure, Each 15 M inutes Completed 07/02/2020 59877 Therapeutic Procedure, Each 15 M inutes Completed 07/02/2020 22386 Therapeutic Procedure, Each 15 M inutes Completed 06/29/2020 14750 Therapeutic Procedure, Each 15 M inutes Completed 06/29/2020 31099 Therapeutic Procedure, Each 15 M inutes Completed 06/29/2020 15557 X-Ray Elbow Complete Completed 06/17/2020 13819 Therapeutic Procedure, Each 15 M inutes Completed 06/17/2020 99295 Therapeutic Procedure, Each 15 M inutes Completed 06/17/2020 19116 Therapeutic Procedure, Each 15 M inutes Completed 06/15/2020 53184 Therapeutic Procedure, Each 15 M inutes Completed 06/15/2020 13567 Therapeutic Procedure, Each 15 M inutes Completed 06/08/2020 90634 Physical Therapy Eval - Low Comp lexity Completed Medical Devices Description No Information Available Encounters Type Date Location Provider Dx Diagnosis Office Visit 08/06/2020 10:15a Veto Russell MD S46. 012D Strain of musc/tend the rotator cuff of left shoulder, subs Office Visit 06/29/2020 10:45a Veto Russell MD S46. 012D Strain of musc/tend the rotator cuff of left shoulder, subs S70.12xD Contusion of left thigh, sub sequent encounter M24.022 Loose body in left elbow Office Visit 05/18/2020 9:45a Veto Russell MD S46. 012A Strain of musc/tend the rotator cuff of left shoulder, init S70.12xA Contusion of left thigh, ini tial encounter Assessments Date Code Description Provider 10/20/2020 S46.012D Strain of muscle(s) and tendon(s) of the rotator cuff of left shoulder, subsequent encounter Mikel Russell MD 08/06/2020 S46.012D Strain of muscle(s) and tendon(s) of the rotator cuff of left shoulder, subsequent encounter Mikel Russell MD 08/05/2020 S46.012D Strain of muscle(s) and tendon(s) of the rotator cuff of left shoulder, subsequent encounter Blaze Worrell PT, DPT 07/26/2020 S46.012D Strain of muscle(s) and tendon(s) of the rotator cuff of left shoulder, subsequent encounter Blaze Worrell PT, DPT 07/22/2020 S46.012D Strain of muscle(s) and tendon(s) of the rotator cuff of left shoulder, subsequent encounter Salima ChoudhuryPau Hermelindaarben, MSPT 07/19/2020 S46.012D Strain of muscle(s) and tendon(s) of the rotator cuff of left shoulder, subsequent encounter Salima Warner, MSPT 07/14/2020 S46.012D Strain of muscle(s) and tendon(s) of the rotator cuff of left shoulder, subsequent encounter Blaze Worrell PT, DPT 07/08/2020 S46.012D Strain of muscle(s) and tendon(s) of the rotator cuff of left shoulder, subsequent encounter Blaze Worrell PT, DPT 07/05/2020 S46.012D Strain of muscle(s) and tendon(s) of the rotator cuff of left shoulder, subsequent encounter Blaze Worrell PT, DPT 07/05/2020 S70.12xD Contusion of left thigh, subsequ ent encounter Blaze Worrell PT, DPT 07/02/2020 S46.012D Strain of muscle(s) and tendon(s) of the rotator cuff of left shoulder, subsequent encounter Blaze Worrell PT, DPT 07/02/2020 S70.12xD Contusion of left thigh, subsequ ent encounter Blaze Worrell PT, DPT 06/29/2020 S46.012D Strain of muscle(s) and tendon(s) of the rotator cuff of left shoulder, subsequent encounter Blaze Worrell PT, DPT 06/29/2020 S46.012D Strain of muscle(s) and tendon(s) of the rotator cuff of left shoulder, subsequent encounter Mikel Russell MD 06/29/2020 S70.12xD Contusion of left thigh, subsequ ent encounter Mikel Russell MD 06/29/2020 M24.022 Loose body in left elbow Mikel Russell MD 06/29/2020 S70.12xD Contusion of left thigh, subsequ ent encounter Blaze Worrell PT, DPT 06/17/2020 S46.012D Strain of muscle(s) and tendon(s) of the rotator cuff of left shoulder, subsequent encounter Blaze Worrell PT, DPT 06/17/2020 S70.12xD Contusion of left thigh, subsequ ent encounter Blaze Peng Gm, PT, DPT 06/15/2020 S46.012D Strain of muscle(s) and tendon(s) of the rotator cuff of left shoulder, subsequent encounter Blaze Peng Gm, PT, DPT 06/15/2020 S70.12xD Contusion of left thigh, subsequ ent encounter Blaze MaceyPau Worrell, PT, DPT 06/08/2020 S46.012D Strain of muscle(s) and tendon(s) of the rotator cuff of left shoulder, subsequent encounter Blaze MaceyPau Worrell, PT, DPT 06/08/2020 S70.12xD Contusion of left thigh, subsequ ent encounter Blaze Peng Gm, PT, DPT 05/18/2020 S46.012A Strain of muscle(s) and tendon(s) of the rotator cuff of left shoulder, initial encounter Mikel Russell MD 05/18/2020 S70.12xA Contusion of left thigh, initial encounter Mikel Russell MD Plan of Treatment 10/20/2020 - Mikel Russell MD* S46.012D Strain of muscle(s) and tendon(s) of the rotator cuff of left shoulder, subsequent encounter* Follow up:* 8 weeks lt shoulder lake with bms or klf per anm Functional Status Description No Information Available Mental Status Description No Information Available Referrals Refer to Dr Reason for Referral Status Appt Date Mikel Russell MD PT- LT SHOULDER OK TO [facility] 2N D SET PASSED TO PT DEPT. LS Created [facility] [place] [address] [phone] Renea Sidhu PA-C PT- LT SHOULDER AND LT THIGH OK TO [facility] 1ST SET PASSED TO PT DEPT. LS Created [address] [place] [address] [phone] Renea Sidhu PA-C MRI LT SHOULDER ARTHROGRAM O K TO [facility] PER MTGS ONECALL TO [facility]. Created [address] [place] [phone] [phone]
--- OUTSIDE RECORDS SUMMARY | 2020-10-29 08:42 | CCD ---
Author Author [facility] Organization [facility] Address Unknown Phone Unavailable Support Name Relationship Address Phone EDGAR COELHO GUAR [address] [address] CO[address]HOIO[address] ECON [address] [place] [address] Care Team Providers Care Fitness Worker Name Role Phone Asaf Wilson Unavailable PROBLEMS Type Condition ICD9-CM Code [id number] Code Onset Dates Condition S tatus SNOMED Code Notes Problem Cervical cancer screening Z12.4 Active 818920 001 Problem Breast cancer screening Z12.31 Active 61085223 1 Problem Claudication in peripheral vascular disease I73.9 Active 37849306 Problem Primary insomnia F51.01 Active 5971058 Problem Essential hypertension I10 Active 95753424 Problem Sequela of lacunar infarction I69.30 Active 33 970542339895 Problem Lipid screening Z13.220 Active 601627131 Problem Pure hypercholesterolemia E78.00 Active 223016 004 Problem Gastroesophageal reflux disease, esophagitis pre sence not specified K21.9 Active 802715637 Problem Tobacco use Z72.0 Active 090966731 Problem Sleep-disordered breathing G47.30 Active 75535 8000 ALLERGIES No Known Allergies ENCOUNTERS from 1960 to 2020-08-20 Encounter Location Date Provider Diagnosis [facility] [address] [facility] [address] [place] [address] 20 Aug, 2020 Asaf Wilson IMMUNIZATIONS Vaccine Route Administration Date Status Influenza [...] Education Language: Question Answer Notes Languages spoken: Dutch Latter-Day: Question Answer Notes Latter-Day 03 [employer] Drug and Alcohol Question Answer Notes Total [...] Information RESULTS No Results REASON FOR VISIT RX MEDICAL (GENERAL) HISTORY Type Description Date Medical History HTN 2yrs. now Medical History tyrer cuzick score 6.37% Surgical History BTL 1993 Surgical History wisdom teeth extracted under geta Surgical History exploratory laparotomy Surgical History hysterectomy Hospitalization History 3 hospitalizations c each child Goals Section No Information Health Concerns No Information MEDICAL EQUIPMENT No Information MENTAL STATUS No Information FUNCTIONAL STATUS No Information ASSESSMENTS No Information PLAN OF TREATMENT Medication Medication Name Sig Start Date Stop Date Betamethasone Dipropionate May 0.05 % 1 application Ex ternally bid [...] Once a day f or 90 day(s) Insurance Providers Payer Name Payer Address Payer Phone Insured Name Patient Relati onship to Insured Coverage Start Date Coverage End Date BCBS [place] MORE PPO [phone] [facility] [employer] [place] [id number] EDGAR COELHO
--- OUTSIDE RECORDS SUMMARY | 2020-10-29 08:42 | CCD ---
Author Author [facility] Organization [facility] Address Unknown Phone Unavailable Support Name Relationship Address Phone EDGAR COELHO GUAR [address] [address] COELHOIOANA ECON [address] [place], [place] [address] Care Team Providers Care Flame Annealing Machine Operator Name Role Phone MonsterKaterynaan Unavailable PROBLEMS Type Condition ICD9-CM Code [id number] Code Onset Dates Condition S tatus SNOMED Code Notes Problem Cervical cancer screening Z12.4 Active 082674 001 Problem Breast cancer screening Z12.31 Active 83346898 1 Problem Claudication in peripheral vascular disease I73.9 Active 28813379 Problem Primary insomnia F51.01 Active 2808176 Problem Essential hypertension I10 Active 66554407 Problem Sequela of lacunar infarction I69.30 Active 33 237756622532 Problem Lipid screening Z13.220 Active 881334510 Problem Pure hypercholesterolemia E78.00 Active 943610 004 Problem Gastroesophageal reflux disease, esophagitis pre sence not specified K21.9 Active 169209640 Problem Tobacco use Z72.0 Active 855076549 Problem Sleep-disordered breathing G47.30 Active 48862 8000 ALLERGIES No Known Allergies ENCOUNTERS from 1960 to 2020-08-06 Encounter Location Date Provider Diagnosis [address] [address] Aug, Nati Hook Essential hypertension I10 and Sequela o f lacunar infarction I69.30 IMMUNIZATIONS Vaccine Route Administration Date Status Influenza [...] Education Language: Question Answer Notes Languages spoken: Croatian Church: Question Answer Notes Church 03 Mosque Drug and Alcohol Question Answer Notes Total [...] MEDICATIONS Medication SIG (Take, Route, Frequency, Duration) Start Date En d Date Status Triamcinolone Acetonide 0.1 % 1 application to ezcema arms and legs topically Twice a day for 30 Days Active AmLODIPine Besylate 5 MG 1 tablet, repeat once if bp > 140/90; sent on 11/06/2019 already Orally Once a day for 90 day(s) Active Simvastatin 20 MG TAKE ONE TABLET BY MOUTH ONC E A DAY IN THE EVENING for 90 day(s) Active Metoprolol Succinate 25 MG 1 capsule 2nd time sent 11/06 also Orally Once a day for 90 day(s) Active Hydrochlorothiazide 25 MG 1 tablet in the morning sent already 11/06/2019 Orally Once a day for 90 day(s) Active Valsartan 320 MG 1 tablet already sent 11/06/2019 Orally On ce a day for 90 day(s) Active Adult Aspirin EC Low Strength 81 MG 1 tablet Orally Once a day f or 90 day(s) Active PROCEDURES No Information RESULTS No Results REASON FOR VISIT sent to wrong pharmacy MEDICAL (GENERAL) HISTORY Type Description Date Medical History HTN 2yrs. now Medical History tyrer antonyzick score 6.37% Surgical History BTL 1993 Surgical History wisdom teeth extracted under geta Surgical History exploratory laparotomy Surgical History hysterectomy Hospitalization History 3 hospitalizations c each child Goals Section No Information Health Concerns No Information MEDICAL EQUIPMENT No Information MENTAL STATUS No Information FUNCTIONAL STATUS No Information ASSESSMENTS Encounter Date Diagnosis Notes Aug, Sequela of lacunar infarction (ICD-10 - I69.30) Aug, Essential hypertension (ICD-10 - I10) PLAN OF TREATMENT Medication Medication Name Sig Start Date Stop Date Metoprolol Succinate 25 MG 1 capsule 2nd time sent 11/06 also Orally Once a day for 90 day(s) Hydrochlorothiazide 25 MG 1 tablet in the morning sent already 11/06/2019 Orally Once a day for 90 day(s) Simvastatin 20 MG TAKE ONE TABLET BY MOUTH ONC E A DAY IN THE EVENING for 90 day(s) Valsartan 320 MG 1 tablet already sent 11/06/2019 Orally On ce a day for 90 day(s) Adult Aspirin EC Low Strength 81 MG 1 tablet Orally Once a day f or 90 day(s) AmLODIPine Besylate 5 MG 1 tablet, repeat once if bp > 140/90; sent on 11/06/2019 already Orally Once a day for 90 day(s) Insurance Providers Payer Name Payer Address Payer Phone Insured Name Patient Relati onship to Insured Coverage Start Date Coverage End Date [id number] MORE PPO [id number] [facility] [place] [address] EDGAR COELHO
--- OUTSIDE RECORDS SUMMARY | 2020-10-29 08:42 | CCD ---
Author Author [facility] Organization [facility] Address Unknown Phone Unavailable Support Name Relationship Address Phone EDGAR COELHO GUAR [address] [address] COELHOIOANA ECON [address] [place] [address] Care Team Providers Care Card Feeder Name Role Phone Asaf Wilson Unavailable PROBLEMS Type Condition ICD9-CM Code NUV50-TX Code Onset Dates Condition S tatus SNOMED Code Notes Problem Cervical cancer screening Z12.4 Active 355513 001 Problem Breast cancer screening Z12.31 Active 70780713 1 Problem Claudication in peripheral vascular disease I73.9 Active 06795015 Problem Primary insomnia F51.01 Active 0490621 Problem Essential hypertension I10 Active 17763917 Problem Sequela of lacunar infarction I69.30 Active 33 070498283154 Problem Lipid screening Z13.220 Active 902024599 Problem Pure hypercholesterolemia E78.00 Active 609703 004 Problem Gastroesophageal reflux disease, esophagitis pre sence not specified K21.9 Active 845144845 Problem Tobacco use Z72.0 Active 485687288 Problem Sleep-disordered breathing G47.30 Active 71391 8000 ALLERGIES No Known Allergies ENCOUNTERS from 1960 to 2020-10-15 Encounter Location Date Provider Diagnosis [facility] Dermatology [address] [facility] [address] [place] [address] 15 Oct, 2020 Asafla Wilson IMMUNIZATIONS Vaccine Route Administration Date Status [...] Education Language: Question Answer Notes Languages spoken: Stateless Confucianism: Question Answer Notes Confucianism 03 Buddhism Drug and Alcohol Question Answer Notes Total [...] Information RESULTS No Results REASON FOR VISIT refill MEDICAL (GENERAL) HISTORY Type Description Date Medical [...] MG 1 tablet Orally Once a day Insurance Providers Payer Name Payer Address Payer Phone Insured Name Patient Relati onship to Insured Coverage Start Date Coverage End Date BCBS CARINA MORE PPO [phone] [facility] [place] [place] [address] EDGAR COELHO
--- OUTSIDE RECORDS SUMMARY | 2020-10-29 08:42 | CCD | Continuity of Care Document ---
Author Author Paty WARNER MSPT Organization Unknown Address [facility], [facility] [address] [place] [address] Phone [phone] Care Team Providers Care Braille Coder Name Role Phone Nati Hook AUTM Problems [...] (wc) 30tabs S46.012D Mikel Russell MD 06/29/2020 Meloxicam 15mg Tablets 1 by mouth every day with food or milk (Comp) 30tabs Mikel Russell MD 05/18/2020 Medrol 4mg Tablets dose katina, take as directed on sheet (Comp) 1tabs S46.012A Mikel Russell MD 05/18/2020 Aspirin Low Dose 81mg Tablets Nati Coello, SWETA-C Simvastatin 20mg Tablets Nati Hook RPA-C Valsartan 320mg Tablets Take One Tablet By Mouth Every Day Unknown Naproxen 500mg Tablets Take One Tablet By Mouth Twice A Day For 10 Days Unknown Cyclobenzaprine HCL 10mg Tablets take one tablet by mouth at bedtime (Comp) 30tabs Mikel robb MD Triamcinolone Acetonide 0.1% Ointm ent Apply To Eczema On Arms And Legs Two Times A Day Unknown Hydrochlorothiazide 25mg Tablets Take One Tablet By Mouth Every Morning Unknown Amlodipine Besylate 5mg Tablets Nati Hook, ZACC Prednisone 20mg Tablets Take Three Tablets By Mouth Every Day For 1 Week Then 2 Once Daily For 1 Week Then 1 Once Daily For 1 Week Unknown Aleve 220mg Capsules as neede d Unknown Aspercreme Lidocaine Max Strength 4% Patches Unknown Immunizations Description No Information Available Vital Signs Date Vital Result Comment 05/18/2020 11:01am Body Temperature 96.6 F Height 63 inches 5'3" Weight 142.00 lb BMI (Body Mass Index) 25.2 kg/m2 Results Description No Information Available Procedures Date Code Description Status 08/05/2020 71702 Therapeutic Procedure, Each 15 M inutes Completed 08/05/2020 93601 Therapeutic Procedure, Each 15 M inutes Completed 07/26/2020 31185 Therapeutic Procedure, Each 15 M inutes Completed 07/26/2020 37298 Therapeutic Procedure, Each 15 M inutes Completed 07/22/2020 90797 Therapeutic Procedure, Each 15 M inutes Completed 07/19/2020 86080 Therapeutic Procedure, Each 15 M inutes Completed 07/19/2020 97052 Therapeutic Procedure, Each 15 M inutes Completed 07/14/2020 27868 Re-Eval Of PT Establ ished Plan Of Care 20Mins Face To Face PT/Fam Completed 07/14/2020 38792 Therapeutic Procedure, Each 15 M inutes Completed 07/14/2020 18958 Therapeutic Procedure, Each 15 M inutes Completed 07/08/2020 08144 Therapeutic Procedure, Each 15 M inutes Completed 07/08/2020 39367 Therapeutic Procedure, Each 15 M inutes Completed 07/05/2020 08672 Therapeutic Procedure, Each 15 M inutes Completed 07/05/2020 49916 Therapeutic Procedure, Each 15 M inutes Completed 07/02/2020 69558 Therapeutic Procedure, Each 15 M inutes Completed 07/02/2020 56317 Therapeutic Procedure, Each 15 M inutes Completed 07/02/2020 29087 Therapeutic Procedure, Each 15 M inutes Completed 06/29/2020 89778 Therapeutic Procedure, Each 15 M inutes Completed 06/29/2020 25059 Therapeutic Procedure, Each 15 M inutes Completed 06/29/2020 06251 X-Ray Elbow Complete Completed 06/17/2020 57593 Therapeutic Procedure, Each 15 M inutes Completed 06/17/2020 75457 Therapeutic Procedure, Each 15 M inutes Completed 06/17/2020 24973 Therapeutic Procedure, Each 15 M inutes Completed 06/15/2020 45676 Therapeutic Procedure, Each 15 M inutes Completed 06/15/2020 24390 Therapeutic Procedure, Each 15 M inutes Completed 06/08/2020 24604 Physical Therapy Eval - Low Comp lexity [...] tial encounter Assessments Date Code Description Provider 08/06/2020 S46.012D Strain of muscle(s) and tendon(s) [...] left shoulder, subsequent encounter Salima Warner, MSPT 07/19/2020 S46.012D Strain of muscle(s) and tendon(s) of the rotator cuff of left shoulder, subsequent encounter Salima ChoudhuryPau Hermelindaarben, MSPT 07/14/2020 S46.012D Strain of muscle(s) and tendon(s) of the rotator cuff of left shoulder, subsequent encounter Blaze Worrell, PT, DPT 07/08/2020 S46.012D Strain of muscle(s) [...] subsequ ent encounter Blaze Worrell PT, DPT 06/15/2020 S46.012D Strain of muscle(s) and tendon(s) of the rotator cuff of left shoulder, subsequent encounter Blaze Worrell, PT, DPT 06/15/2020 S70.12xD Contusion of left thigh, subsequ ent encounter Blaze Worrell, PT, DPT 06/08/2020 S46.012D Strain of muscle(s) and tendon(s) of the rotator cuff of left shoulder, subsequent encounter Blaze Worrell, PT, DPT 06/08/2020 S70.12xD Contusion of left thigh, subsequ ent encounter Blaze Worrell, PT, DPT 05/18/2020 S46.012A Strain of muscle(s) and tendon(s) of the rotator cuff of left shoulder, initial encounter Mikel Russell MD 05/18/2020 S70.12xA Contusion of left thigh, initial encounter Mikel Russell MD Plan of Treatment 08/06/2020 - Mikel Russell MD* S46.012D Strain of muscle(s) and tendon(s) of the rotator cuff of left shoulder, subsequent encounter* Follow up:* early october for lt shoulder lake with ANM Functional Status Description No Information Available Mental Status Description No Information Available Referrals Refer to Dr Reason for Referral Status Appt Date Mikel Russell MD PT- LT SHOULDER OK TO [facility] 2N D SET PASSED TO PT DEPT. Created [facility] [place] [address] [phone] Renea Sidhu PA-C PT- LT SHOULDER AND LT THIGH OK TO [facility] 1ST SET PASSED TO PT DEPT. Created [facility] [address] [address] [phone] Renea Sidhu PA-C MRI LT SHOULDER ARTHROGRAM O K TO [facility] PER MTGS ONECALL TO [facility]. Created [facility] [address] [address] [phone]
--- OUTSIDE RECORDS SUMMARY | 2020-10-29 08:42 | CCD ---
Author Author [facility] Organization [facility] Address Unknown Phone Unavailable Support Name Relationship Address Phone DEGAR COELHO GUAR [address] [address] COELHOIOANA ECON [address] [place], [place] [address] Care Team Providers Care Forensic Economist Name Role Phone KarlaKateryna guyan Unavailable PROBLEMS Type Condition ICD9-CM Code WCL01-MD Code Onset Dates Condition S tatus SNOMED Code Notes Problem Cervical cancer screening Z12.4 Active 278397 001 Problem Breast cancer screening Z12.31 Active 49692467 1 Problem Claudication in peripheral vascular disease I73.9 Active 78523527 Problem Primary insomnia F51.01 Active 6851255 Problem Essential hypertension I10 Active 66311732 Problem Sequela of lacunar infarction I69.30 Active 33 533583777793 Problem Lipid screening Z13.220 Active 501254450 Problem Pure hypercholesterolemia E78.00 Active 104114 004 Problem Gastroesophageal reflux disease, esophagitis pre sence not specified K21.9 Active 939073733 Problem Tobacco use Z72.0 Active 096471661 Problem Sleep-disordered breathing G47.30 Active 77587 8000 ALLERGIES No Known Allergies ENCOUNTERS from 1960 to 2020-08-09 Encounter Location Date Provider Diagnosis [address] [address] January, Nati Hook Essential hypertension I10 IMMUNIZATIONS Vaccine Route Administration Date Status Influenza [...] Education Language: Question Answer Notes Languages spoken: Gibraltarian Jehovah'S Witness: Question Answer Notes Jehovah'S Witness 03 Hindu Drug and Alcohol Question Answer Notes Total [...] Information RESULTS No Results REASON FOR VISIT Aspirin and Amlodipine MEDICAL (GENERAL) HISTORY Type Description Date Medical History HTN 2yrs. now Medical History sarah amayack score 6.37% Surgical History BTL 1993 Surgical History wisdom teeth extracted under geta Surgical History exploratory laparotomy Surgical History hysterectomy Hospitalization History 3 hospitalizations c each child Goals Section No Information Health Concerns No Information MEDICAL EQUIPMENT No Information MENTAL STATUS No Information FUNCTIONAL STATUS No Information ASSESSMENTS Encounter Date Diagnosis Notes January, Essential hypertension (ICD-10 - I10) PLAN OF [...] BCBS CARINA MORE PPO [phone] [facility] [place] [address] EDGAR COELHO
--- OUTSIDE RECORDS SUMMARY | 2020-10-29 08:42 | CCD | Continuity of Care Document ---
Author Author Paty RUSSELL MD Organization Unknown Address [address] [place] [address] Phone [phone] Care Team Providers Care Trampoline Team Coach Name Role Phone Nati Hook AUTM Problems [...] Aspirin Low Dose 81mg Tablets Nati Coello, RPA-C Simvastatin 20mg Tablets Nati Hook RPA-C Valsartan [...] Available Procedures Date Code Description Status 08/05/2020 15653 Therapeutic Procedure, Each 15 M inutes Completed 08/05/2020 23743 Therapeutic Procedure, Each 15 M inutes Completed 07/26/2020 65182 Therapeutic Procedure, Each 15 M inutes Completed 07/26/2020 04996 Therapeutic Procedure, Each 15 M inutes Completed 07/22/2020 89449 Therapeutic Procedure, Each 15 M inutes Completed 07/19/2020 52958 Therapeutic Procedure, Each 15 M inutes Completed 07/19/2020 72382 Therapeutic Procedure, Each 15 M inutes Completed 07/14/2020 71587 Re-Eval Of PT Establ ished Plan Of Care 20Mins Face To Face PT/Fam Completed 07/14/2020 08189 Therapeutic Procedure, Each 15 M inutes Completed 07/14/2020 19133 Therapeutic Procedure, Each 15 M inutes Completed 07/08/2020 43256 Therapeutic Procedure, Each 15 M inutes Completed 07/08/2020 21502 Therapeutic Procedure, Each 15 M inutes Completed 07/05/2020 38790 Therapeutic Procedure, Each 15 M inutes Completed 07/05/2020 92419 Therapeutic Procedure, Each 15 M inutes Completed 07/02/2020 63408 Therapeutic Procedure, Each 15 M inutes Completed 07/02/2020 56848 Therapeutic Procedure, Each 15 M inutes Completed 07/02/2020 09903 Therapeutic Procedure, Each 15 M inutes Completed 06/29/2020 94970 Therapeutic Procedure, Each 15 M inutes Completed 06/29/2020 59461 Therapeutic Procedure, Each 15 M inutes Completed 06/29/2020 40976 X-Ray Elbow Complete Completed 06/17/2020 23047 Therapeutic Procedure, Each 15 M inutes Completed 06/17/2020 90198 Therapeutic Procedure, Each 15 M inutes Completed 06/17/2020 81617 Therapeutic Procedure, Each 15 M inutes Completed 06/15/2020 28190 Therapeutic Procedure, Each 15 M inutes Completed 06/15/2020 29516 Therapeutic Procedure, Each 15 M inutes Completed 06/08/2020 70965 Physical Therapy Eval - Low Comp lexity [...] shoulder, subsequent encounter Blaze Worrell, PT, DPT 07/26/2020 S46.012D Strain of muscle(s) and tendon(s) of the rotator cuff of left shoulder, subsequent encounter Blaze Worrell, PT, DPT 07/22/2020 S46.012D Strain of muscle(s) and tendon(s) of the rotator cuff of left shoulder, subsequent encounter Salima Warner, MSPT 07/19/2020 S46.012D Strain of muscle(s) and tendon(s) of the rotator cuff of left shoulder, subsequent encounter Salima ChoudhuryPau Warner, MSPT 07/14/2020 S46.012D Strain of muscle(s) [...] Contusion of left thigh, subsequ ent encounter Blzae Worrell PT, DPT 06/17/2020 S46.012D Strain of [...] S70.12xA Contusion of left thigh, initial encounter Miekl Russell MD Plan of Treatment 08/06/2020 - Mikel Russell MD* S46.012D Strain of muscle(s) and tendon(s) of the rotator cuff of left shoulder, subsequent encounter* Follow up:* early October for lt shoulder lake with ANM Functional Status Description No Information Available Mental Status Description No Information Available Referrals Refer to Dr Reason for Referral Status Appt Date Mikel Russell MD PT- LT SHOULDER OK TO [facility] 2N D SET PASSED TO PT DEPT. Created [facility] [place] [address] [phone] Renea Sidhu PA-C PT- LT SHOULDER AND LT THIGH OK TO [facility] 1ST SET PASSED TO PT DEPT. Created [address] [place] [address] [phone] Renea Sidhu PA-C MRI LT SHOULDER ARTHROGRAM O K TO [facility] PER MTGS ONECALL TO [facility]. Created [facility] [address] [address] [phone]
--- OUTSIDE RECORDS SUMMARY | 2020-10-29 08:42 | CCD | Continuity of Care Document ---
Author Author Paty KOHLER DPT Organization Unknown Address [address] [place] [address] Phone [phone] Care Team Providers Care Assurance Specialist Name Role Phone Nati Hook AUTM Problems [...] Available Procedures Date Code Description Status 08/05/2020 86239 Therapeutic Procedure, Each 15 M inutes Completed 08/05/2020 60608 Therapeutic Procedure, Each 15 M inutes Completed 07/26/2020 10369 Therapeutic Procedure, Each 15 M inutes Completed 07/26/2020 00555 Therapeutic Procedure, Each 15 M inutes Completed 07/22/2020 64897 Therapeutic Procedure, Each 15 M inutes Completed 07/19/2020 17843 Therapeutic Procedure, Each 15 M inutes Completed 07/19/2020 88365 Therapeutic Procedure, Each 15 M inutes Completed 07/14/2020 40199 Re-Eval Of PT Establ ished Plan Of Care 20Mins Face To Face PT/Fam Completed 07/14/2020 87464 Therapeutic Procedure, Each 15 M inutes Completed 07/14/2020 45125 Therapeutic Procedure, Each 15 M inutes Completed 07/08/2020 01217 Therapeutic Procedure, Each 15 M inutes Completed 07/08/2020 96119 Therapeutic Procedure, Each 15 M inutes Completed 07/05/2020 86984 Therapeutic Procedure, Each 15 M inutes Completed 07/05/2020 64379 Therapeutic Procedure, Each 15 M inutes Completed 07/02/2020 49746 Therapeutic Procedure, Each 15 M inutes Completed 07/02/2020 13739 Therapeutic Procedure, Each 15 M inutes Completed 07/02/2020 20516 Therapeutic Procedure, Each 15 M inutes Completed 06/29/2020 00243 Therapeutic Procedure, Each 15 M inutes Completed 06/29/2020 78696 Therapeutic Procedure, Each 15 M inutes Completed 06/29/2020 79508 X-Ray Elbow Complete Completed 06/17/2020 17763 Therapeutic Procedure, Each 15 M inutes Completed 06/17/2020 49111 Therapeutic Procedure, Each 15 M inutes Completed 06/17/2020 56714 Therapeutic Procedure, Each 15 M inutes Completed 06/15/2020 19092 Therapeutic Procedure, Each 15 M inutes Completed 06/15/2020 70985 Therapeutic Procedure, Each 15 M inutes Completed 06/08/2020 97406 Physical Therapy Eval - Low Comp lexity [...] rotator cuff of left shoulder, subsequent encounter Balze Kohler PT, DPT 07/26/2020 S46.012D Strain of muscle(s) and tendon(s) of the rotator cuff of left shoulder, subsequent encounter Blaze Kohler, PT, DPT 07/22/2020 S46.012D Strain of muscle(s) and tendon(s) of the rotator cuff of left shoulder, subsequent encounter Salima Warner, MSPT 07/19/2020 S46.012D Strain of muscle(s) and tendon(s) of the rotator cuff of left shoulder, subsequent encounter Salima ChoudhuryPau Warner, MSPT 07/14/2020 S46.012D Strain of muscle(s) and tendon(s) of the rotator cuff of left shoulder, subsequent encounter Blaze Kohler, PT, DPT 07/08/2020 S46.012D Strain of muscle(s) and tendon(s) of the rotator cuff of left shoulder, subsequent encounter Blaze Kohler PT, DPT 07/05/2020 S46.012D Strain of muscle(s) and tendon(s) of the rotator cuff of left shoulder, subsequent encounter Blaze Kohler PT, DPT 07/05/2020 S70.12xD Contusion of left thigh, subsequ ent encounter Blaze Kohler PT, DPT 07/02/2020 S46.012D Strain of muscle(s) and tendon(s) of the rotator cuff of left shoulder, subsequent encounter Blaze Kohler PT, DPT 07/02/2020 S70.12xD Contusion of left thigh, subsequ ent encounter Blaze Kohler PT, DPT 06/29/2020 S46.012D Strain of muscle(s) and tendon(s) of the rotator cuff of left shoulder, subsequent encounter Blaze Kohler PT, DPT 06/29/2020 S46.012D Strain of muscle(s) and tendon(s) of the rotator cuff of left shoulder, subsequent encounter Mikel Russell MD 06/29/2020 S70.12xD Contusion of left thigh, subsequ ent encounter Mikel Russell MD 06/29/2020 M24.022 Loose body in left elbow Mikel Russell MD 06/29/2020 S70.12xD Contusion of left thigh, subsequ ent encounter Blaze Kohler PT, DPT 06/17/2020 S46.012D Strain of muscle(s) and tendon(s) of the rotator cuff of left shoulder, subsequent encounter Blaze Kohler PT, DPT 06/17/2020 S70.12xD Contusion of left thigh, subsequ ent encounter Blaze Kohler PT, DPT 06/15/2020 S46.012D Strain of muscle(s) and tendon(s) of the rotator cuff of left shoulder, subsequent encounter Blaze Kohler, PT, DPT 06/15/2020 S70.12xD Contusion of left thigh, subsequ ent encounter Blaze Kohler, PT, DPT 06/08/2020 S46.012D Strain of muscle(s) and tendon(s) of the rotator cuff of left shoulder, subsequent encounter Blaze Kohler, PT, DPT 06/08/2020 S70.12xD Contusion of left thigh, subsequ ent encounter Blaze Kohler, PT, DPT 05/18/2020 S46.012A Strain of muscle(s) [...] Russell MD PT- LT SHOULDER OK TO [facility] 2N D SET PASSED TO PT DEPT. Created [facility] [place] [address] [phone] Renea Sidhu PA-C PT- LT SHOULDER AND LT THIGH OK TO [facility] 1ST SET PASSED TO PT DEPT. Created [address] [place] [address] [phone] Renea Sidhu PA-C MRI LT SHOULDER ARTHROGRAM O K TO [facility] PER MTGS ONECALL TO [facility]. Created [facility] [address] [address] [phone]
--- OUTSIDE RECORDS SUMMARY | 2020-10-29 08:42 | CCD | Continuity of Care Document ---
Author Author Paty KOHLER DPT Organization Unknown Address [address] [place] [address] Phone [phone] Care Team Providers Care Fundraiser Name Role Phone Nati Hook AUTM Problems [...] Available Procedures Date Code Description Status 08/05/2020 11323 Therapeutic Procedure, Each 15 M inutes Completed 08/05/2020 20621 Therapeutic Procedure, Each 15 M inutes Completed 07/26/2020 04191 Therapeutic Procedure, Each 15 M inutes Completed 07/26/2020 43996 Therapeutic Procedure, Each 15 M inutes Completed 07/22/2020 56330 Therapeutic Procedure, Each 15 M inutes Completed 07/19/2020 08281 Therapeutic Procedure, Each 15 M inutes Completed 07/19/2020 02171 Therapeutic Procedure, Each 15 M inutes Completed 07/14/2020 16999 Re-Eval Of PT Establ ished Plan Of Care 20Mins Face To Face PT/Fam Completed 07/14/2020 31348 Therapeutic Procedure, Each 15 M inutes Completed 07/14/2020 39185 Therapeutic Procedure, Each 15 M inutes Completed 07/08/2020 93008 Therapeutic Procedure, Each 15 M inutes Completed 07/08/2020 57463 Therapeutic Procedure, Each 15 M inutes Completed 07/05/2020 95076 Therapeutic Procedure, Each 15 M inutes Completed 07/05/2020 98155 Therapeutic Procedure, Each 15 M inutes Completed 07/02/2020 63506 Therapeutic Procedure, Each 15 M inutes Completed 07/02/2020 85084 Therapeutic Procedure, Each 15 M inutes Completed 07/02/2020 26060 Therapeutic Procedure, Each 15 M inutes Completed 06/29/2020 69657 Therapeutic Procedure, Each 15 M inutes Completed 06/29/2020 25481 Therapeutic Procedure, Each 15 M inutes Completed 06/29/2020 43493 X-Ray Elbow Complete Completed 06/17/2020 03244 Therapeutic Procedure, Each 15 M inutes Completed 06/17/2020 72658 Therapeutic Procedure, Each 15 M inutes Completed 06/17/2020 20147 Therapeutic Procedure, Each 15 M inutes Completed 06/15/2020 40705 Therapeutic Procedure, Each 15 M inutes Completed 06/15/2020 15732 Therapeutic Procedure, Each 15 M inutes Completed 06/08/2020 55750 Physical Therapy Eval - Low Comp lexity [...] shoulder, subsequent encounter Blaze Kohler PT, DPT 07/26/2020 S46.012D Strain of [...] Russell MD PT- LT SHOULDER OK TO [facility] 2N D SET PASSED TO PT DEPT. Created [facility] [place] [address] [phone] Renea Sidhu PA-C PT- LT SHOULDER AND LT THIGH OK TO [facility] 1ST SET PASSED TO PT DEPT. Created [address] [place] [address] [phone] Renea Sidhu PA-C MRI LT SHOULDER ARTHROGRAM O K TO [facility] PER [facility] ONECALL TO [facility]. Created [facility] [address] [address] [phone]
--- OUTSIDE RECORDS SUMMARY | 2020-10-29 08:42 | CCD ---
Author Author [facility] Organization [facility] Address Unknown Phone Unavailable Support Name Relationship Address Phone EDGAR COELHO GUAR [address] [address] CO[address]HO[address] E[address] [place], [place] [id number] Care Team Providers Care Blood Collector Name Role Phone KarlaKateryna guyan Unavailable PROBLEMS Type Condition ICD9-CM Code [id number] Code Onset Dates Condition S tatus SNOMED Code Notes Problem Cervical cancer screening Z12.4 Active 699245 001 Problem Breast cancer screening Z12.31 Active 48681975 1 Problem Claudication in peripheral vascular disease I73.9 Active 91515924 Problem Primary insomnia F51.01 Active 3421136 Problem Essential hypertension I10 Active 42471132 Problem Sequela of lacunar infarction I69.30 Active 33 367555740963 Problem Lipid screening Z13.220 Active 346518602 Problem Pure hypercholesterolemia E78.00 Active 545123 004 Problem Gastroesophageal reflux disease, esophagitis pre sence not specified K21.9 Active 248949371 Problem Tobacco use Z72.0 Active 024405829 Problem Sleep-disordered breathing G47.30 Active 58469 8000 ALLERGIES No Known Allergies ENCOUNTERS from 1960 to 2020-08-21 Encounter Location Date Provider Diagnosis [address] [address] Jul, Nati Hook IMMUNIZATIONS Vaccine Route Administration [...] Education Language: Question Answer Notes Languages spoken: Yakut Jew: Question Answer Notes Jew [facility] Question Answer Notes Total [...] Information RESULTS No Results REASON FOR VISIT downtime MEDICAL (GENERAL) HISTORY Type Description Date Medical [...] BCBS [place] MORE PPO [phone] [facility] [place] [address] EDGAR COELHO
--- OUTSIDE RECORDS SUMMARY | 2020-10-29 08:43 | CCD | Continuity of Care Document ---
Author Author Paty RUSSELL MD Organization Unknown Address [address] [place] [address] Phone [phone] Care Team Providers Care Wildlife Veterinarian Name Role Phone Nati Hook AUTM Problems [...] Available Procedures Date Code Description Status 08/05/2020 44486 Therapeutic Procedure, Each 15 M inutes Completed 08/05/2020 94873 Therapeutic Procedure, Each 15 M inutes Completed 07/26/2020 81812 Therapeutic Procedure, Each 15 M inutes Completed 07/26/2020 61206 Therapeutic Procedure, Each 15 M inutes Completed 07/22/2020 90977 Therapeutic Procedure, Each 15 M inutes Completed 07/19/2020 22657 Therapeutic Procedure, Each 15 M inutes Completed 07/19/2020 76586 Therapeutic Procedure, Each 15 M inutes Completed 07/14/2020 31726 Re-Eval Of PT Establ ished Plan Of Care 20Mins Face To Face PT/Fam Completed 07/14/2020 89689 Therapeutic Procedure, Each 15 M inutes Completed 07/14/2020 95593 Therapeutic Procedure, Each 15 M inutes Completed 07/08/2020 22646 Therapeutic Procedure, Each 15 M inutes Completed 07/08/2020 77760 Therapeutic Procedure, Each 15 M inutes Completed 07/05/2020 95107 Therapeutic Procedure, Each 15 M inutes Completed 07/05/2020 67882 Therapeutic Procedure, Each 15 M inutes Completed 07/02/2020 34387 Therapeutic Procedure, Each 15 M inutes Completed 07/02/2020 58699 Therapeutic Procedure, Each 15 M inutes Completed 07/02/2020 72326 Therapeutic Procedure, Each 15 M inutes Completed 06/29/2020 28356 Therapeutic Procedure, Each 15 M inutes Completed 06/29/2020 07372 Therapeutic Procedure, Each 15 M inutes Completed 06/29/2020 12713 X-Ray Elbow Complete Completed 06/17/2020 38056 Therapeutic Procedure, Each 15 M inutes Completed 06/17/2020 62780 Therapeutic Procedure, Each 15 M inutes Completed 06/17/2020 23146 Therapeutic Procedure, Each 15 M inutes Completed 06/15/2020 69374 Therapeutic Procedure, Each 15 M inutes Completed 06/15/2020 30404 Therapeutic Procedure, Each 15 M inutes Completed 06/08/2020 94343 Physical Therapy Eval - Low Comp lexity [...] cuff of left shoulder, subsequent encounter Balze Worrell, PT, DPT 07/26/2020 S46.012D Strain of [...] PT- LT SHOULDER OK TO [facility] 2N D SET PASSED TO PT DEPT. Created [facility] [place] [address] [phone] Renea Sidhu PA-C PT- LT SHOULDER AND LT THIGH OK TO [facility] 1ST SET PASSED TO PT DEPT. Created [address] [place] [address] [phone] Renea Sidhu PA-C MRI LT SHOULDER ARTHROGRAM O K TO [facility] PER [facility] ONECALL TO [facility]. Created [facility] [address] [address] [phone]
--- OUTSIDE RECORDS SUMMARY | 2020-10-29 08:43 | CCD | Continuity of Care Document ---
Author Author Paty WARNER MSPT Organization Unknown Address [facility], [facility] [address] [place] [address] Phone [phone] Care Team Providers Care Acid Polymerization Operator Name Role Phone Nati Hook AUTM Problems [...] Available Procedures Date Code Description Status 08/05/2020 41957 Therapeutic Procedure, Each 15 M inutes Completed 08/05/2020 42773 Therapeutic Procedure, Each 15 M inutes Completed 07/26/2020 66811 Therapeutic Procedure, Each 15 M inutes Completed 07/26/2020 70042 Therapeutic Procedure, Each 15 M inutes Completed 07/22/2020 85452 Therapeutic Procedure, Each 15 M inutes Completed 07/19/2020 66656 Therapeutic Procedure, Each 15 M inutes Completed 07/19/2020 88568 Therapeutic Procedure, Each 15 M inutes Completed 07/14/2020 67658 Re-Eval Of PT Establ ished Plan Of Care 20Mins Face To Face PT/Fam Completed 07/14/2020 62944 Therapeutic Procedure, Each 15 M inutes Completed 07/14/2020 19998 Therapeutic Procedure, Each 15 M inutes Completed 07/08/2020 98948 Therapeutic Procedure, Each 15 M inutes Completed 07/08/2020 29106 Therapeutic Procedure, Each 15 M inutes Completed 07/05/2020 21666 Therapeutic Procedure, Each 15 M inutes Completed 07/05/2020 89310 Therapeutic Procedure, Each 15 M inutes Completed 07/02/2020 15965 Therapeutic Procedure, Each 15 M inutes Completed 07/02/2020 07072 Therapeutic Procedure, Each 15 M inutes Completed 07/02/2020 46068 Therapeutic Procedure, Each 15 M inutes Completed 06/29/2020 64508 Therapeutic Procedure, Each 15 M inutes Completed 06/29/2020 49087 Therapeutic Procedure, Each 15 M inutes Completed 06/29/2020 97591 X-Ray Elbow Complete Completed 06/17/2020 62143 Therapeutic Procedure, Each 15 M inutes Completed 06/17/2020 36078 Therapeutic Procedure, Each 15 M inutes Completed 06/17/2020 29838 Therapeutic Procedure, Each 15 M inutes Completed 06/15/2020 13874 Therapeutic Procedure, Each 15 M inutes Completed 06/15/2020 19646 Therapeutic Procedure, Each 15 M inutes Completed 06/08/2020 62199 Physical Therapy Eval - Low Comp lexity [...] Russell MD PT- [facility] 2N D SET PASSED TO PT DEPT. Created [facility] [place] [address] [phone] Renea Sidhu PA-C PT- LT SHOULDER AND LT THIGH [facility] 1ST SET PASSED TO PT DEPT. Created [facility] [address] [address] [phone] Renea Sidhu PA-C MRI LT SHOULDER ARTHROGRAM O K [facility]ALL [facility]. Created [facility] [address] [address] [phone]
--- OUTSIDE RECORDS SUMMARY | 2020-10-29 08:43 | CCD ---
Author Author [facility] Organization [facility] Address Unknown Phone Unavailable Care Team Providers Care Global Account Director Name Role Phone JESSICA RUSSELL MD Unavailable Unavailable JESSICA RUSSELL MD Unavailable Unavailable JESSICA RUSSELL MD Unavailable Unavailable JESSICA RUSSELL MD Unavailable Unavailable JESSICA RUSSELL MD Unavailable Unavailable JESSICA RUSSELL MD Unavailable Unavailable JESSICA RUSSELL MD Unavailable Unavailable JESSICA RUSSELL MD Unavailable Unavailable JESSICA RUSSELL MD Unavailable Unavailable JESSICA RUSSELL MD Unavailable Unavailable JESSICA RUSSELL MD Unavailable Unavailable JESSICA RUSSELL MD Unavailable Unavailable JESSICA RUSSELL MD Unavailable Unavailable JESSICA RUSSELL MD Unavailable Unavailable JESSICA RUSSELL MD Unavailable Unavailable JESSICA RUSSELL MD Unavailable Unavailable JESSICA RUSSELL MD Unavailable Unavailable JESSICA RUSSELL MD Unavailable Unavailable JESSICA RUSSELL MD Unavailable Unavailable JESSICA RUSSELL MD Unavailable Unavailable JESSICA RUSSELL MD Unavailable Unavailable JESSICA RUSSELL MD Unavailable Unavailable JESSICA RUSSELL MD Unavailable Unavailable JESSICA RUSSELL MD Unavailable Unavailable MARKWITH, JESSICA LE Unavailable Unavailable MARKWITH, JESSICA LE Unavailable Unavailable MARKWITH, JESSICA LE Unavailable Unavailable MARKWITH, JESSICA LE Unavailable Unavailable MARKWITH, JESSICA LE Unavailable Unavailable MARKWITH, JESSICA LE Unavailable Unavailable MARKWITH, JESSICA LE Unavailable Unavailable MARKWITH, JESSICA LE Unavailable Unavailable MARKWITH, JESSICA LE Unavailable Unavailable Re-disclosure Warning The records that you are about to access may contain information from federally-assisted alcohol or drug abuse programs. If such information is present, then the following federally mandated warning applies: This information has been disclosed to you from records protected by federal confidentiality rules (42 CFR part 2). The federal rules prohibit you from making any further disclosure of this information unless further disclosure is expressly permitted by the written consent of the person to whom it pertains or as otherwise permitted by 42 CFR part 2. A general authorization for the release of medical or other information is NOT sufficient for this purpose. The Federal rules restrict any use of the information to criminally investigate or prosecute any alcohol or drug abuse patient.The records that you are about to access may contain highly sensitive health information, the redisclosure of which is protected by Article 27-F of the [facility] Public Health law. If you continue you may have access to information: Regarding HIV / AIDS; Provided by facilities licensed or operated by the [facility] Office of Mental Health; or Provided by the [facility] Office for People With Developmental Disabilities. If such information is present, then the following [facility] mandated warning applies: This information has been disclosed to you from confidential records which are protected by state law. State law prohibits you from making any further disclosure of this information without the specific written consent of the person to whom it pertains, or as otherwise permitted by law. Any unauthorized further disclosure in violation of state law may result in a fine or long term sentence or both. A general authorization for the release of medical or other information is NOT sufficient authorization for further disc losure. Family History Family Member Name Family Member Gender Family Member Status Date o f Status Description Data Source(s) Unknown Unknown Problem MEDENT ([facility]) Unknown Male Problem [facility] ([facility]) Unknown Male Problem [facility] ([facility]) Encounters Encounter Providers Location Date Indications Data Source(s ) [place] [address] [facility] [place] [address] 10/15/2020 12:00:00 AM EST eCW1 ([facility]) [place] [address] [facility] [address] 10/12/2020 12:00:00 AM EST eCW1 ([facility]) [place] [address] [facility] [address] 08/20/2020 12:00:00 AM EST eCW1 ([facility]) Outpatient Attender: JESSICA RUSSELL MD Physical Therapy 09:15:00 AM EST MEDENT ([facility]) [place] [address] [facility] [address] 08/06/2020 12:00:00 AM EST eCW1 ([facility]) [place] [address] [facility] [address] 07/31/2020 12:00:00 AM EDT eCW1 ([facility]) [place] [address] [facility] [address] 07/30/2020 12:00:00 AM EDT eCW1 ([facility]) Outpatient Attender: JESSICA RUSSELL MD Physical Therapy 10:45:00 AM EDT MEDENT ([facility]) Outpatient Attender: JESSICA RUSSELL MD Physical Therapy 09:45:00 AM EDT MEDENT ([facility]) Outpatient [address] [facility] [address] 03/23/2020 12:00:00 AM EDT eCW1 ([facility]) [facility] [address] [facility] [address] 01/07/2020 12:00:00 AM EDT eCW1 ([facility]) [facility] [address] [place] [address] 12/24/2019 12:00:00 AM EDT eCW1 ([facility]) [facility] [address] [place] [address] 12/12/2019 12:00:00 AM EDT eCW1 ([facility]) [facility] [address] [place] [address], [place] [address] 12/09/2019 12:00:00 AM EDT eCW1 ([facility]) [facility] [address] [place] [address], [place] [address] 12/09/2019 12:00:00 AM EDT eCW1 ([facility]) [address] [address] 12/05/2019 12:00:00 AM EST eCW1 ([facility]) [facility] D[facility] [address] [place] [address] 12/02/2019 12:00:00 AM EST eCW1 ([facility]) [address] [place] [address] 11/26/2019 12:00:00 AM EST eCW1 ([facility]) [address] [address] 11/14/2019 12:00:00 AM EST eCW1 ([facility]) [address] [address] 11/13/2019 12:00:00 AM EST eCW1 ([facility]) [address] [address] 11/12/2019 12:00:00 AM EST eCW1 ([facility]) [facility] [address] [place] [address] 11/06/2019 12:00:00 AM EST eCW1 ([facility]) [address] [place] [address] 11/06/2019 12:00:00 AM EST eCW1 ([facility]) [address] [address] 11/05/2019 12:00:00 AM EST [facility]) [facility] Dermat[facility] Center [address] [place] [address] 10/31/2019 12:00:00 AM EST eCW1 ([facility]) [facility] Derm[facility]ology [address] [place] [address] 10/17/2019 12:00:00 AM EST eCW1 ([facility]) [facility] D[facility] [address] [place] [address] 10/10/2019 12:00:00 AM EST eCW1 ([facility]) [address] [address] 10/09/2019 12:00:00 AM EST eCW1 ([facility]) [address] [address] 09/19/2019 12:00:00 AM EST eCW1 ([facility]) [facility] D[facility] [address] [place] [address] 09/18/2019 12:00:00 AM EST eCW1 ([facility]) Medications Medication Brand Name Start Date Product Form Dose Route Admi nistrative Instructions Pharmacy Instructions Status Indications Reaction Description Data Source(s) Betamethasone 0.0005 MG/MG Augmented Top ical Ointment Betamethasone Dipropionate Aug 0.05 % Betamethasone Dipropionate Aug 0.05 % 08/20/2020 12:00:00 AM EST 1.0 {application} active Betamethasone Dipropionate Aug 0.05 % eCW1 ([facility]) Betamethasone 0.0005 MG/MG Augmented Top ical Ointment Betamethasone Dipropionate Aug 0.05 % Betamethasone Dipropionate Aug 0.05 % 08/20/2020 12:00:00 AM EST 1.0 {application} active Betamethasone Dipropionate Aug 0.05 % eCW1 ([facility]) Betamethasone 0.0005 MG/MG Augmented Top ical Ointment Betamethasone Dipropionate Aug 0.05 % Betamethasone Dipropionate Aug 0.05 % 08/20/2020 12:00:00 AM EST 1.0 {application} active Betamethasone Dipropionate Aug 0.05 % eCW1 ([facility]) Betamethasone 0.0005 MG/MG Augmented Top ical Ointment Betamethasone Dipropionate Aug 0.05 % Betamethasone Dipropionate Aug 0.05 % 08/20/2020 12:00:00 AM EST 1.0 {application} active Betamethasone Dipropionate Aug 0.05 % eCW1 ([facility]) Betamethasone 0.0005 MG/MG Augmented Top ical Ointment Betamethasone Dipropionate Aug 0.05 % Betamethasone Dipropionate Aug 0.05 % 08/20/2020 12:00:00 AM EST 1.0 {application} active Betamethasone Dipropionate Aug 0.05 % eCW1 ([facility]) Naproxen 375 MG Oral Tablet Naproxen 06/29/2020 12:00:00 AM EDT ORAL active MEDENT ([facility]) meloxicam 15 MG Oral Tablet Meloxicam 05/18/2020 12:00:00 AM EDT ORAL completed MEDENT ([facility]) Methylprednisolone 4 MG Oral Tablet [Medrol] Medrol 12:00:00 AM EDT completed MEDENT ([facility]) Triamcinolone Acetonide 0.001 MG/MG Topi martín Ointment Triamcinolone Acetonide 0.1 % Triamcinolone Acetonide 0.1 % 09/18/2019 12:00:00 AM EST active 1 application to [facility] eCW1 ([facility]) Prednisone 20 MG Oral Tablet PredniSONE 20 MG PredniSONE 20 MG 09/18/2019 12:00:00 AM EST active tablet e CW1 ([facility]) Triamcinolone Acetonide 0.001 MG/MG Topi martín Ointment Triamcinolone Acetonide 0.1 % Triamcinolone Acetonide 0.1 % 09/18/2019 12:00:00 AM EST active 1 application to [facility] eCW1 ([facility]) Insurance Providers Payer name Policy type / Coverage type Policy ID Covered constitution party ID Covered constitution party's relationship to lainez Policy Lainez Plan Information [place]/307 [id number] SP [id number] ONE CALL CARE MANAGEMENT O [id number] S [id number] [place]/307 [id number] SP [id number] [employer]CELLUS BCBS B [id number] S VYS [id number] [place] 302/307 [id number] SP [id number] ANSI-Commercial [id number] ANSI-Commercial [id number] ANSI-Commercial [id number] ANSI-Commercial [id number] ANSI-Commercial [id number] ANSI-Commercial [id number] ANSI-Commercial [id number] ANSI-Commercial [id number] [place] 306/806 [id number] SP [id number] ANSI-Commercial [id number] ANSI-Commercial [id number] [facility] [id number] SP [id number] ANSI-Commercial [id number] ANSI-Commercial [id number] ANSI-Commercial [id number] [place] 306/806 [id number] SP [id number] BCBS/[employer] Commercial [id number] Self [id number] [id number] BCBS/[place] Commercial [id number] Self [id number] [id number] BCBS/[place] Commercial [id number] Self [id number] [id number] [place] 306/806 UNAVAILABLE SP UNAVAILABLE EXCELLUS BCBS FEDERAL [id number] SP [id number] SELF PAY ONLY [id number] SP [id number] MEDICAID [id number] SP [id number] YVONNE [id number] SP [id number] [place]NE CARE [place] O [id number] S [id number] MEDICAID [id number] SP [id number] SELF PAY UNAVAILABLE SP UNAVAILA BLE HEALTH WELFARE BENEFIT SYS [id number] SP [id number] HEALTH WELFARE B[place]IT [place] [id number] [place] [id number] [employer] [id number] SP [id number] [place] - Medicaid Hmo Health Maintenance Organization (HMO) Self Medicaid Medigap Part B Self MEDICAID M [id number] Medicaid Medicaid Self Problems, Conditions, and Diagnoses Code Display Name Description Problem Type Effective Dates Data Source(s) 57376296 Essential hypertension Essential hypertension Problem 05/18/2020 12:00:00 AM EDT MEDENT ([facility] ) I69.30 [id number] Sequela of lacunar infarction Problem 03/23/2020 12:00:00 AM EDT eCW1 ([facility]) Surgeries/Procedures Procedure Description Date Indications Data Source(s) THERAPEUTIC PX 1/> AREAS EACH 15 MIN EXERCISES 12:00:00 AM EST MEDENT ([facility] ) THERAPEUTIC PX 1/> AREAS EACH 15 MIN EXERCISES 12:00:00 AM EST MEDENT ([facility] ) THERAPEUTIC PX 1/> AREAS EACH 15 MIN EXERCISES 12:00:00 AM EDT MEDENT ([facility] ) THERAPEUTIC PX 1/> AREAS EACH 15 MIN EXERCISES 12:00:00 AM EDT MEDENT ([facility] ) THERAPEUTIC PX 1/> AREAS EACH 15 MIN EXERCISES 12:00:00 AM EDT MEDENT ([facility] ) THERAPEUTIC PX 1/> AREAS EACH 15 MIN EXERCISES 12:00:00 AM EDT MEDENT ([facility] ) THERAPEUTIC PX 1/> AREAS EACH 15 MIN EXERCISES 12:00:00 AM EDT MEDENT ([facility] ) THERAPEUTIC PX 1/> AREAS EACH 15 MIN EXERCISES 12:00:00 AM EDT MEDENT ([facility] ) THERAPEUTIC PX 1/> AREAS EACH 15 MIN EXERCISES 12:00:00 AM EDT MEDENT ([facility] ) Re-Eval Of PT Established Plan Of Care 20Mins Face To Face P T/Fam 07/14/2020 12:00:00 AM EDT MEDENT ([facility] ) THERAPEUTIC PX 1/> AREAS EACH 15 MIN EXERCISES 12:00:00 AM EDT MEDENT ([facility] ) THERAPEUTIC PX 1/> AREAS EACH 15 MIN EXERCISES 12:00:00 AM EDT MEDENT ([facility] ) THERAPEUTIC PX 1/> AREAS EACH 15 MIN EXERCISES 12:00:00 AM EDT MEDENT ([facility] ) THERAPEUTIC PX 1/> AREAS EACH 15 MIN EXERCISES 12:00:00 AM EDT MEDENT ([facility] ) THERAPEUTIC PX 1/> AREAS EACH 15 MIN EXERCISES 12:00:00 AM EDT MEDENT ([facility] ) THERAPEUTIC PX 1/> AREAS EACH 15 MIN EXERCISES 12:00:00 AM EDT MEDENT ([facility] ) THERAPEUTIC PX 1/> AREAS EACH 15 MIN EXERCISES 12:00:00 AM EDT MEDENT ([facility] ) RADEX ELBOW COMPLETE MINIMUM 3 VIEWS 06/29/2020 12:00: 00 AM EDT MEDENT ([facility] ) THERAPEUTIC PX 1/> AREAS EACH 15 MIN EXERCISES 12:00:00 AM EDT MEDENT ([facility] ) THERAPEUTIC PX 1/> AREAS EACH 15 MIN EXERCISES 12:00:00 AM EDT MEDENT ([facility] ) THERAPEUTIC PX 1/> AREAS EACH 15 MIN EXERCISES 12:00:00 AM EDT MEDENT ([facility] ) THERAPEUTIC PX 1/> AREAS EACH 15 MIN EXERCISES 12:00:00 AM EDT MEDENT ([facility] ) THERAPEUTIC PX 1/> AREAS EACH 15 MIN EXERCISES 12:00:00 AM EDT MEDENT ([facility] ) THERAPEUTIC PX 1/> AREAS EACH 15 MIN EXERCISES 12:00:00 AM EDT MEDENT ([facility] ) THERAPEUTIC PX 1/> AREAS EACH 15 MIN EXERCISES 12:00:00 AM EDT MEDENT ([facility] ) Physical Therapy Eval - Low Complexity 06/08/2020 12:0 0:00 AM EDT MEDENT ([facility] ) SHAVE TRUNK 1.1-2 CM 12/05/2019 12:00:00 AM EST eCW1 ([facility]) NO CHARGE VISIT 11/06/2019 12:00:00 AM EST eCW1 ([facility]) Results ID Date Data Source [id number] 10/25/2020 07:00:00 AM EST [facility] Name Value Range Interpretation Code Description Data Natividad rce(s) Supporting Document(s) SARS coronavirus 2 RNA Not Detected [facility] [place] This lab was ordered by [facility] and reported by [facility]. ID Date Data Source [id number] 10/21/2020 12:00:00 AM EST [facility] Name Value Range Interpretation Code Description Data Natividad rce(s) Supporting Document(s) SARS coronavirus 2 Ag Negative [facility] This lab was ordered by [facility] and reported by [facility]. ID Date Data Source [id number] 10/18/2020 02:00:00 PM EST [facility] Name Value Range Interpretation Code Description Data Natividad rce(s) Supporting Document(s) SARS coronavirus 2 RNA Not Detected [facility] [place] This lab was ordered by [facility] and reported by [facility]. ID Date Data Source [id number] 10/14/2020 12:00:00 AM EST [facility] Name Value Range Interpretation Code Description Data Natividad rce(s) Supporting Document(s) SARS-CoV2 Rapid Antigen Negative [facility] This lab was ordered by [facility] and reported by [facility]. ID Date Data Source [id number] 10/11/2020 09:00:00 AM EST [facility] Name Value Range Interpretation Code Description Data Natividad rce(s) Supporting Document(s) SARS coronavirus 2 RNA Not Detected [facility] [place] This lab was ordered by [facility] and reported by [facility]. ID Date Data Source [id number] 10/04/2020 11:30:00 AM EST [facility] Name Value Range Interpretation Code Description Data Natividad rce(s) Supporting Document(s) SARS coronavirus 2 RNA [facility] This lab was ordered by [facility] and reported by [facility]. ID Date Data Source [id number] 09/27/2020 06:30:00 AM EST [facility] Name Value Range Interpretation Code Description Data Natividad rce(s) Supporting Document(s) SARS coronavirus 2 RNA [facility] This lab was ordered by [facility] and reported by [facility]. ID Date Data Source [id number] 09/20/2020 09:30:00 AM EST [facility] Name Value Range Interpretation Code Description Data Natividad rce(s) Supporting Document(s) SARS coronavirus 2 RNA [facility] This lab was ordered by [facility] and reported by [facility]. ID Date Data Source [id number] 09/13/2020 07:48:00 AM EST [facility] Name Value Range Interpretation Code Description Data Natividad rce(s) Supporting Document(s) SARS coronavirus 2 RNA [facility] This lab was ordered by [facility] and reported by [facility]. ID Date Data Source [id number] 09/06/2020 05:17:00 AM EST [facility] Name Value Range Interpretation Code Description Data Natividad rce(s) Supporting Document(s) SARS coronavirus 2 RNA [facility] This lab was ordered by [facility] and reported by [facility]. ID Date Data Source [id number] 08/30/2020 07:27:00 AM EST [facility] Name Value Range Interpretation Code Description Data Natividad rce(s) Supporting Document(s) SARS coronavirus 2 RNA [facility] This lab was ordered by [facility] and reported by [facility]. ID Date Data Source [id number] 08/23/2020 09:00:00 AM EST [facility] Name Value Range Interpretation Code Description Data Natividad rce(s) Supporting Document(s) SARS coronavirus 2 RNA [facility] This lab was ordered by [facility] and reported by [facility]. ID Date Data Source [id number] 08/16/2020 05:30:00 AM EST [facility] Name Value Range Interpretation Code Description Data Natividad rce(s) Supporting Document(s) SARS coronavirus 2 RNA [facility] This lab was ordered by [facility] and reported by [facility]. ID Date Data Source [id number] 08/09/2020 08:00:00 AM EST [facility] Name Value Range Interpretation Code Description Data Natividad rce(s) Supporting Document(s) SARS coronavirus 2 RNA [facility] This lab was ordered by [facility] and reported by [facility]. ID Date Data Source [id number] 06/11/2020 12:00:00 AM EDT [facility] Jessica Russell MD Patient Name: GRECIA COELHO1 [facility] Date of : 1960 Date of Exam: 06/11/2020ZahraaJAS gómez [id number]#: Fax: [phone] EXAM: MRI SHOULDER LEFT W/O&W/CONTRAST ARTHROGRAMCLINICAL INFORMATION: Pain and decreased [id number], status postpulling injury.Pre and post contrast 3T MRI of the left shoulder with shoulder MRIarthrography was performed utilizing various sequences. The glenohumeraljoint injection was performed by Valarie Voss, [facility].There are no prior left shoulder MRI's for comparison.The pre-injection portion of the examination shows slight hypertrophicdegenerative change seen involving the acromioclavicular joint. Theacromion process is Type II. There is patchy and linear hypersignal seenwithin the supraspinatus tendon. There is no supraspinatus muscle bellyatrophy or retraction. Normal appearing low signal is seen throughout thesubscapularis and teres minor tendon. There is subtle patchy [id number] seen in the infraspinatus tendon. There is mild coracohumeraland coracoacromial ligamentous thickening. There is no glenohumeral jointeffusion. There is a small amount of fluid in the subcoracoid recess.The post injection portion of the examination shows slight patchy andlinear T2 hypersignal in the superior labrum with biceps labral complexfraying. The glenohumeral ligaments are intact. There is humeral headmarginal osteophytosis and there is glenohumeral joint space narrowing.None of the injected fluid has migrated superior to the supraspinatustendon.IMPRESSION:1. There is biceps labral complex fraying and a slight superior labraltear which is anterior and mid-portion.2. There is glenohumeral joint degenerative change as described above.3. There is supraspinatus and infraspinatus tendinitis/tendinosis withoutevidence of a full thickness tear.4. Other findings as described above.Accredited by the [employer] in [place].JACKELYN Blunt/Jules you for referring EDGAR COELHO to our office. Electronically Signed - NORA PENG DO 06/14/20 13:10 Name Value Range Interpretation Code Description Data Natividad rce(s) Supporting Document(s) ID Date Data Source [id number] 06/11/2020 12:00:00 AM EDT [facility] Jessica Russell MD Patient Name: EDGAR [id number] [facility] Date of : 1960 201 Date of Exam: 06/11/2020JAS Laws [id number]#: Fax: [phone] EXAM: INJECTION PROCEDURE FOR SHOULDER ARTHROGRAMCLINICAL INFORMATION: Rule out rotator cuff tear of the left shoulder.The procedure was performed by GUILLERMO Juárez, under the directsupervision of Dr. Peng.The benefits and risks including but not limited to pain, infection,bleeding and anaphylaxis were explained to the patient as well as thepossibility of an unsuccessful procedure, and an informed consent wasobtained. Directly prior to the start of the procedure, a formal time-outwas completed.The left glenohumeral joint space was localized using fluoroscopicguidance. The skin was prepped and draped in a sterile fashion.Approximately 5 cc of 1% Lidocaine 10 mg/ml was used as a local anesthetic. Using fluoroscopic guidance, a #22 gauge spinal needle was inserted andadvanced into the left glenohumeral joint space. Approximately 1 cc ofOmnipaque 300 mg/ml was injected to verify placement. 12 cc of a solutioncontaining 20 cc of sterile saline and 0.15 cc of ProHance was injectedinto the joint space. The needle was removed and the patient was taken toMRI for post procedural imaging.The patient tolerated the procedure well and there were no immediatecomplications.Fluoroscopic images are performed with last image hold technology. Theseimages require no additional radiation to acquire.Fluoroscopy time was 13 seconds at 3 pulses/second. This is equal to 3.25seconds continuous fluoroscopy time which is a 75% reduction in radiation.Dictated by GUILLERMO Juárez, with Dr. Peng.JACKELYN Blunt/Jules you for referring EDGAR COELHO to our office. Electronically Signed - NORA PENG DO 06/11/20 16:31 Name Value Range Interpretation Code Description Data Natividad rce(s) Supporting Document(s) ID Date Data Source [id number] 06/11/2020 12:00:00 AM EDT [facility] Imaging Jessica Russell MD Patient Name: GRECIA COELHO1 [facility] Date of : 1960te 201 Date of Exam: 06/11/2020JAS Laws [id number]#: Fax: [phone] EXAM: INJECTION PROCEDURE FOR SHOULDER ARTHROGRAMCLINICAL INFORMATION: Rule out rotator cuff tear of the left shoulder.The procedure was performed by GUILLERMO Juárez, under the directsupervision of Dr. Peng.The benefits and risks including but not limited to pain, infection,bleeding and anaphylaxis were explained to the patient as well as thepossibility of an unsuccessful procedure, and an informed consent wasobtained. Directly prior to the start of the procedure, a formal time-outwas completed.The left glenohumeral joint space was localized using fluoroscopicguidance. The skin was prepped and draped in a sterile fashion.Approximately 5 cc of 1% Lidocaine 10 mg/ml was used as a local anesthetic. Using fluoroscopic guidance, a #22 gauge spinal needle was inserted andadvanced into the left glenohumeral joint space. Approximately 1 cc ofOmnipaque 300 mg/ml was injected to verify placement. 12 cc of a solutioncontaining 20 cc of sterile saline and 0.15 cc of ProHance was injectedinto the joint space. The needle was removed and the patient was taken toMRI for post procedural imaging.The patient tolerated the procedure well and there were no immediatecomplications.Fluoroscopic images are performed with last image hold technology. Theseimages require no additional radiation to acquire.Fluoroscopy time was 13 seconds at 3 pulses/second. This is equal to 3.25seconds continuous fluoroscopy time which is a 75% reduction in radiation.Dictated by Valarie Voss, [facility], with Dr. Peng.Nora Peng, JACKELYN/jmNirali you for referring EDGAR COELHO to our office. Electronically Signed - NORA PENG DO 06/11/20 16:31 Name Value Range Interpretation Code Description Data Natividad rce(s) Supporting Document(s) ID Date Data Source [id number] 04/19/2020 10:00:00 AM EDT [facility] Name Value Range Interpretation Code Description Data Natividad rce(s) Supporting Document(s) SARS coronavirus 2 RNA [facility] This lab was ordered by [facility] and reported by [facility]. ID Date Data Source [id number] 04/12/2020 03:18:00 PM EDT [facility] Name Value Range Interpretation Code Description Data Natividad rce(s) Supporting Document(s) SARS coronavirus 2 RNA [facility] This lab was ordered by [facility] and reported by [facility]. ID Date Data Source [id number] 04/05/2020 09:30:00 AM EDT [facility] Name Value Range Interpretation Code Description Data Natividad rce(s) Supporting Document(s) SARS coronavirus 2 RNA [facility] This lab was ordered by [facility] and reported by [facility]. ID Date Data Source [id number] 03/29/2020 03:00:00 PM EDT [facility] Name Value Range Interpretation Code Description Data Natividad rce(s) Supporting Document(s) SARS CORONAVIRUS 2 RNA [facility] This lab was ordered by [facility] and reported by [facility]. ID Date Data Source [id number] 03/22/2020 03:10:00 PM EDT [facility] Name Value Range Interpretation Code Description Data Natividad rce(s) Supporting Document(s) SARS CORONAVIRUS 2 RNA [facility] This lab was ordered by [facility] and reported by [facility]. ID Date Data Source [id number] 03/15/2020 03:12:00 PM EDT [facility] Name Value Range Interpretation Code Description Data Natividad rce(s) Supporting Document(s) SARS CORONAVIRUS 2 RNA [facility] This lab was ordered by [facility] and reported by [facility]. ID Date Data Source [id number] 03/08/2020 11:25:00 AM EDT [facility] Name Value Range Interpretation Code Description Data Natividad rce(s) Supporting Document(s) SARS CORONAVIRUS 2 RNA [facility] This lab was ordered by [facility] and reported by [facility]. ID Date Data Source [id number] 03/04/2020 06:00:00 AM EDT [facility] Name Value Range Interpretation Code Description Data Natividad rce(s) Supporting Document(s) SARS CORONAVIRUS 2 RNA [facility] This lab was ordered by [facility] and reported by [facility]. ID Date Data Source [id number] 03/01/2020 02:20:00 PM EDT [facility] Name Value Range Interpretation Code Description Data Natividad rce(s) Supporting Document(s) SARS CORONAVIRUS 2 RNA [facility] This lab was ordered by [facility] and reported by [facility]. ID Date Data Source [id number] 02/26/2020 08:05:00 AM EDT [facility] Name Value Range Interpretation Code Description Data Natividad rce(s) Supporting Document(s) SARS CORONAVIRUS 2 RNA [facility] This lab was ordered by [facility] and reported by [facility]. ID Date Data Source [id number] 02/24/2020 06:50:00 AM EDT [facility] Name Value Range Interpretation Code Description Data Natividad rce(s) Supporting Document(s) SARS CORONAVIRUS 2 RNA [facility] This lab was ordered by [facility] and reported by [facility]. ID Date Data Source [id number] 02/18/2020 08:13:00 AM EDT [facility] Name Value Range Interpretation Code Description Data Natividad rce(s) Supporting Document(s) SARS CORONAVIRUS 2 RNA [facility] This lab was ordered by [facility] and reported by [facility]. ID Date Data Source [id number] 02/10/2020 08:14:00 AM EDT [facility] Name Value Range Interpretation Code Description Data Natividad rce(s) Supporting Document(s) SARS CORONAVIRUS 2 RNA [facility] This lab was ordered by [facility] and reported by [facility]. Procedure Social History Code Duration Value Status Description Data Source(s ) Smoking 03/23/2020 12:00:00 AM EDT Current Smoker completed Curre nt Smoker eCW1 ([facility]) Smoking 03/23/2020 12:00:00 AM EDT Current Smoker completed Curre nt Smoker eCW1 ([facility]) Smoking 03/23/2020 12:00:00 AM EDT Current Smoker completed Curre nt Smoker eCW1 ([facility]) Smoking 03/23/2020 12:00:00 AM EDT Current Smoker completed Curre nt Smoker eCW1 ([facility]) Smoking 03/23/2020 12:00:00 AM EDT Current Smoker completed Curre nt Smoker eCW1 ([facility]) Smoking 03/23/2020 12:00:00 AM EDT Current Smoker completed Curre nt Smoker eCW1 ([facility]) Smoking 03/23/2020 12:00:00 AM EDT Current Smoker completed Curre nt Smoker eCW1 ([facility]) Smoking 03/23/2020 12:00:00 AM EDT Current Smoker completed Curre nt Smoker eCW1 ([facility]) Vital Signs ID Date Data Source UNK Name Value Range Interpretation Code Description Data Source(s) Body temperature 96.6 [degF] 96.6 [degF] MEDENT ([facility]) Body mass index (BMI) [Ratio] 25.2 kg/m2 25.2 k g/m2 MEDENT ([facility]) Body weight 142.00 [lb_av] 142.00 [lb_av] MEDEN T ([facility]) Body height 63 [in_i] 63 [in_i] MEDENT ([facility]) 5'3" Body temperature 96.6 [degF] 96.6 [degF] MEDENT ([facility]) Diastolic blood pressure 78 mm[Hg] 78 mm[Hg] eCW1 ([facility]) Systolic blood pressure 130 mm[Hg] 130 mm[Hg] e CW1 ([facility]) Body temperature 96.8 [degF] 96.8 [degF] eCW1 ( [facility]) Respiratory rate 17 /min 17 /min eCW1 ([facility]) Heart rate 110 /min 110 /min eCW1 ([facility] Body mass index (BMI) [Ratio] 29.88 kg/m2 29.88 kg/m2 eCW1 ([facility]) Body height 63.5 [in_i] 63.5 [in_i] eCW1 ([facility]) Body weight 171.4 [lb_av] 171.4 [lb_av] eCW1 ([facility]) Diastolic blood pressure 80 mm[Hg] 80 mm[Hg] eCW1 ([facility]) Systolic blood pressure 140 mm[Hg] 140 mm[Hg] e CW1 ([facility]) Body temperature 97.4 [degF] 97.4 [degF] eCW1 ( [facility]) Respiratory rate 18 /min 18 /min eCW1 ([facility]) Heart rate 104 /min 104 /min eCW1 ([facility]) Body mass index (BMI) [Ratio] 29.39 kg/m2 29.39 kg/m2 eCW1 ([facility]) Body height 63.5 [in_us] 63.5 [in_us] eCW1 ([facility]) Body weight Measured 168.6 [lb_av] 168.6 [lb_av ] eCW1 ([facility]) Diastolic blood pressure 80 mm[Hg] 80 mm[Hg] eCW1 ([facility]) Systolic blood pressure 128 mm[Hg] 128 mm[Hg] e CW1 ([facility]) Body temperature 97.8 [degF] 97.8 [degF] eCW1 ( [facility]) Respiratory rate 17 /min 17 /min eCW1 ([facility]) Heart rate 108 /min 108 /min eCW1 ([facility]) Body mass index (BMI) [Ratio] 29.64 kg/m2 29.64 kg/m2 eCW1 ([facility]) Body height 63.5 [in_us] 63.5 [in_us] eCW1 ([facility]) Body weight Measured 170 [lb_av] 170 [lb_av] eC W1 ([facility]) Diastolic blood pressure 84 mm[Hg] 84 mm[Hg] eCW1 ([facility]) Systolic blood pressure 130 mm[Hg] 130 mm[Hg] e CW1 ([facility]) Body temperature 97.8 [degF] 97.8 [degF] eCW1 ( [facility]) Respiratory rate 17 /min 17 /min eCW1 ([facility]) Heart rate 110 /min 110 /min eCW1 ([facility]) Body mass index (BMI) [Ratio] 29.36 kg/m2 29.36 kg/m2 eCW1 ([facility]) Body height 63.5 [in_us] 63.5 [in_us] eCW1 ([facility]) Body weight Measured 168.4 [lb_av] 168.4 [lb_av ] eCW1 ([facility]) Diastolic blood pressure 102 mm[Hg] 102 mm[Hg] eCW1 ([facility]) Systolic blood pressure 186 mm[Hg] 186 mm[Hg] e CW1 ([facility]) Body temperature 97.8 [degF] 97.8 [degF] eCW1 ( [facility]) Respiratory rate 20 /min 20 /min eCW1 ([facility]) Heart rate 114 /min 114 /min eCW1 ([facility]) Body mass index (BMI) [Ratio] 29.99 kg/m2 29.99 kg/m2 eCW1 ([facility]) Body height 63.5 [in_us] 63.5 [in_us] eCW1 ([facility]) Body weight Measured 172 [lb_av] 172 [lb_av] eC W1 ([facility]) Diastolic blood pressure 98 mm[Hg] 98 mm[Hg] eCW1 ([facility]) Systolic blood pressure 188 mm[Hg] 188 mm[Hg] e CW1 ([facility]) Body mass index (BMI) [Ratio] 29.46 kg/m2 29.46 kg/m2 eCW1 ([facility]) Body height 63.5 [in_us] 63.5 [in_us] eCW1 ([facility]) Body weight Measured 169 [lb_av] 169 [lb_av] eC W1 ([facility]) Diastolic blood pressure 77 mm[Hg] 77 mm[Hg] eCW1 ([facility]) Systolic blood pressure 134 mm[Hg] 134 mm[Hg] e CW1 ([facility]) Body temperature 97.4 [degF] 97.4 [degF] eCW1 ( [facility]) Respiratory rate 18 /min 18 /min eCW1 ([facility]) Heart rate 97 /min 97 /min eCW1 ([facility]) Body mass index (BMI) [Ratio] 29.88 kg/m2 29.88 kg/m2 eCW1 ([facility]) Body height 63.5 [in_us] 63.5 [in_us] eCW1 ([facility]) Body weight Measured 171.4 [lb_av] 171.4 [lb_av ] eCW1 ([facility]) Patient Treatment Plan of Care Planned Activity Planned Date Details Description Data Source (s) Betamethasone 0.0005 MG/MG Augmented Topical Ointment 08/20/2020 12:00:00 AM EST eCW1 ([facility]) Betamethasone 0.0005 MG/MG Augmented Topical Ointment 08/20/2020 12:00:00 AM EST eCW1 ([facility]) Betamethasone 0.0005 MG/MG Augmented Topical Ointment 08/20/2020 12:00:00 AM EST eCW1 ([facility]) Betamethasone 0.0005 MG/MG Augmented Topical Ointment 08/20/2020 12:00:00 AM EST eCW1 ([facility]) Betamethasone 0.0005 MG/MG Augmented Topical Ointment 08/20/2020 12:00:00 AM EST eCW1 ([facility]) Triamcinolone Acetonide 0.001 MG/MG Topical Ointment 12/19/2 019 12:00:00 AM EST eCW1 ([facility]) Prednisone 20 MG Oral Tablet 09/18/2019 12:00:00 AM EST eCW1 ([facility]) Triamcinolone Acetonide 0.001 MG/MG Topical Ointment 019 12:00:00 AM EST eCW1 ([facility])
[2020-10-29 08:55] LABS: ALBUMIN 4.2 GM/DL (3.2-5.2); ALT/SGPT 39 U/L (12-78); BILIRUBIN,TOTAL 0.2 MG/DL (0.2-1.0); BLOOD UREA NITROGEN 13 MG/DL (7-18); CALCIUM LEVEL 9.6 MG/DL (8.5-10.1); CARBON DIOXIDE LEVEL 24 MEQ/L (21-32); CHLORIDE LEVEL 107 MEQ/L (98-107); CREATININE FOR GFR 1.01 MG/DL (0.55-1.30); GLOMERULAR FILTRATION RATE > 60.0 (>51); GLUCOSE, FASTING 102 MG/DL (70-100); MAGNESIUM LEVEL 2.2 MG/DL (1.8-2.4); PHOSPHORUS LEVEL 2.7 MG/DL (2.5-4.9); SODIUM LEVEL 143 MEQ/L (136-145); TOTAL PROTEIN 7.5 GM/DL (6.4-8.2)
[2020-10-29] MEDS ORDERED: ONDANSETRON 4MG/2ML VIAL IV ONE (09:30)
[2020-10-29 09:46] VITALS: BP 147/77
[2020-10-29] MEDS ORDERED: ZOFR4TAB16 PO (10:05)
[2020-10-29] MEDS ORDERED: KETO10TAB PO (10:05)
== END 2020-10-29 10:23 | disposition home or self-care (01) ==
LOC: EDBD 07:12 → M ED 07:12
DX: R68.83 Chills (without fever) (principal); R51.9 Headache, unspecified; M79.10 Myalgia, unspecified site; T50.B95A Adverse effect of other viral vaccines, initial encounter; I10 Essential (primary) hypertension; Z79.82 Long term (current) use of aspirin; Z79.899 Other long term (current) drug therapy
CPT/HCPCS: 80053; 83735; 84100; 85025; 87804; 96361; 96374; 96375; 99284; J1885; J2405

== ENCOUNTER → 2020-11-29 | Outpatient (CLI) | payer BC ==
[~2020-11-29] MED LIST changes: +HYDR-3490 PO; -HYDR25TAB PO; +KETO10TAB PO; +ZOFR4TAB16 PO
--- NOTE | 2020-11-30 11:12 | SLEEPHOME ---
DIAGNOSTIC HOME SLEEP STUDY DATE: 11/29/2020 ORDERED BY: Nati Hook Diagnostic home sleep testing was performed due to concern for the persistence of obstructive sleep apnea syndrome in this patient with a history of same. For testing, a nocturnal T3 respiratory monitoring device was used. Continuous record was made of pulse, oxygen saturation, air flow, chest and abdominal strain, and body position. 9 hours and 2 minutes of data were reviewed. There were 5 hours and 20 minutes marked as time in bed. During the interval marked time in bed, there were 124 respiratory events identified of 10 seconds in duration or greater for a respiratory event index 23.2 per hour. The events were obstructive. Baseline pulse rate 84. Pulse rate range 76 to 93. Baseline saturation was 90%. Saturations fell to 86%, and testing was performed in both the supine and non-supine positions. IMPRESSION: Abnormal sleep testing, with repetitive respiratory events and oxygen desaturations to 86% with a respiratory event index of 23.2, is consistent with obstructive sleep apnea syndrome. RECOMMENDATION: The patient should be encouraged to continue treatment for her obstructive sleep apnea syndrome. Edited: jose d/valente 12/03/2020 1115 MTDD
== END ==
LOC: M SLEEP HO 14:02
PROVIDERS: ATTEND Physician Assistant Medical
DX: G47.30 Sleep apnea, unspecified (principal)

== ENCOUNTER → 2020-12-03 | Outpatient (CLI) | payer BC ==
--- NOTE | 2020-12-03 08:46 | REP ---
INDICATION: HTN ? RENAL ARTERY STENOSIS COMPARISON: None TECHNIQUE: Real time lemus scale ultrasound examination using curved array transducer followed by color Doppler evaluation of the renal vasculature. FINDINGS: Bilateral kidneys are normal in contour, size, echogenicity, and reniform shape. Right kidney measures 11.2 x 5.5 x 6.3 cm and includes 3.4 cm simple midpole cyst without hydronephrosis, nephrolithiasis or mass lesion. Left kidney measures 10.6 x 5.3 x 5.2 cm. COLOR DOPPLER EVALUATION . Peak aortic velocity: 99 centimeters/second RIGHT KIDNEY Renal arterial velocity: 168 centimeters/second Renal-aortic ratio: 1.7 Intrarenal resistive indices: 0.74-0.81 Intrarenal acceleration times: 0.044-0.052 LEFT KIDNEY Renal arterial velocity: 149 centimeters/second Renal-aortic ratio: 1.5 Intrarenal resistive indices: 0.78-0.81 Intrarenal acceleration times: 0.042-0.054 IMPRESSION: 1. Simple right renal cyst. Otherwise normal appearance of the bilateral kidneys without hydronephrosis. 2. Doppler interegation without sonographic evidence for renal arterial stenosis. <Electronically signed by Shaun Mcnulty > 12/03/20 [id number]
== END ==
LOC: M RAD 07:25
PROVIDERS: ATTEND Physician Assistant Medical
DX: N20.0 Calculus of kidney (principal); I10 Essential (primary) hypertension

== ENCOUNTER 2021-05-16 09:06 | Emergency (ER) | payer BC ==
[~2021-05-16] VITALS: Ht 160 cm; Wt 74.0 kg
[2021-05-16] MEDS ORDERED: CYCL-707 (09:21)
[2021-05-16] MEDS ORDERED: NAPR-885 (09:21)
[2021-05-16 11:18] LABS: BASO % 0.6 % (0.0-1.0); EOS # 0.3 10^3/uL (0.0-0.5); EOS % 3.7 % (0.0-3.0); HEMATOCRIT 38.8 % (36.0-47.0); HEMOGLOBIN 12.9 g/dl (12.0-15.5); LYMPH # 1.2 10^3/uL (1.5-5.0); MEAN CORPUSCULAR HEMOGLOBIN 31.2 pg (27.0-33.0); MEAN CORPUSCULAR HGB CONC 33.2 g/dl (32.0-36.5); MEAN CORPUSCULAR VOLUME 93.9 fl (80.0-96.0); MONO # 0.5 10^3/uL (0.0-0.8); MONO % 7.2 % (2.0-8.0); NEUTROPHILS % 71.1 % (36.0-66.0); PLATELET COUNT, AUTOMATED 266 10^3/uL (150-450); RED BLOOD COUNT 4.13 10^6/uL (4.00-5.40)
[2021-05-16 11:43] LABS: ALT/SGPT 19 U/L (12-78); BILIRUBIN,DIRECT 0.1 MG/DL (0.0-0.2); BILIRUBIN,TOTAL 0.4 MG/DL (0.2-1.0); BLOOD UREA NITROGEN 20 MG/DL (7-18); CALCIUM LEVEL 9.2 MG/DL (8.8-10.2); CARBON DIOXIDE LEVEL 27 MEQ/L (21-32); CHLORIDE LEVEL 105 MEQ/L (98-107); CREATININE FOR GFR 0.86 MG/DL (0.55-1.30); GLOMERULAR FILTRATION RATE > 60.0 (>45); GLUCOSE, FASTING 88 MG/DL (70-100); LIPASE 93 U/L (73-393); POTASSIUM SERUM 4.3 MEQ/L (3.5-5.1); SODIUM LEVEL 137 MEQ/L (136-145); TOTAL PROTEIN 7.1 GM/DL (6.4-8.2)
[2021-05-16] MEDS ORDERED: KETOROLAC TROMETHAMINE 10 MG TAB PO ONE (12:00)
[2021-05-16 12:01] VITALS: BP 138/87
== END 2021-05-16 12:19 | disposition home or self-care (01) ==
LOC: M ED 09:06
DX: R10.31 Right lower quadrant pain (principal); M54.5 Low back pain; I10 Essential (primary) hypertension; E78.5 Hyperlipidemia, unspecified; G47.33 Obstructive sleep apnea (adult) (pediatric); K21.9 Gastro-esophageal reflux disease without esophagitis; Z78.0 Asymptomatic menopausal state; Z79.899 Other long term (current) drug therapy; Z79.82 Long term (current) use of aspirin; Z91.048 Other nonmedicinal substance allergy status; F17.210 Nicotine dependence, cigarettes, uncomplicated

== ENCOUNTER → 2021-05-18 | Outpatient (CLI) | payer BC ==
[~2021-05-18] MED LIST changes: +CYCL-707; +NAPR-885
--- NOTE | 2021-05-18 20:50 | REP ---
INDICATION: PAIN IN THORACIC SPINE COMPARISON: 06/30/2019 TECHNIQUE: AP, lateral, and swimmers views. FINDINGS: Frontal radiograph demonstrates linear scarring at the bilateral lung bases and calcified hilar/mediastinal lymph nodes. Alignment and kyphosis is maintained. Generalized osteopenia noted. Vertebral bodies intact. No acute fracture / compression injury or subluxation. Age-related changes include minimal disc space narrowing and very subtle marginal spurring at multiple levels. Paravertebral soft tissues are normal. IMPRESSION: 1. Chronic pulmonary parenchymal changes and calcified lymph nodes suggesting prior granulomatous disease. 2. Thoracic spine demonstrates osteopenia and mild multilevel age-related changes. <Electronically signed by Shaun Mcnulty > 05/18/21 [id number]
== END ==
LOC: M PLAIMG 15:54
PROVIDERS: ATTEND Physician Assistant
DX: M54.6 Pain in thoracic spine (principal)

== ENCOUNTER → 2021-05-30 | Outpatient (CLI) | payer BC ==
[~2021-05-30] MED LIST changes: +ACET300T52; +ALEV220T22 PO; +AMLO1TAB25 PO; +ASPE4PAD2 TOP; +BACL10TA2; +BENZ200C70 PO; +GABA-1171; +ISOS20TA4 PO; +LIDO1.1P TOP; +LIDO5TD TD; +LOPR1TAB6 PO; +METO10TA2 PO; +METO1TAB32; +METO1TAB32 PO; +METO1TAB87 PO; +OMEP-218 PO; +PERCOCET PO; +PRED20TA; +SELF1KIT MC; +SUCR1TA PO; +TRIA1OI80 TOP
[2021-05-30 17:56] LABS: BASO # 0.1 10^3/uL (0.0-0.2); BASO % 0.5 % (0.0-1.0); EOS # 0.2 10^3/uL (0.0-0.5); EOS % 2.4 % (0.0-3.0); HEMATOCRIT 38.5 % (36.0-47.0); HEMOGLOBIN 13.1 g/dl (12.0-15.5); LYMPH # 1.6 10^3/uL (1.5-5.0); LYMPH % 15.6 % (24.0-44.0); MEAN CORPUSCULAR HEMOGLOBIN 31.4 pg (27.0-33.0); MEAN CORPUSCULAR VOLUME 92.3 fl (80.0-96.0); MONO # 0.9 10^3/uL (0.0-0.8); MONO % 8.8 % (2.0-8.0); NEUTROPHILS # 7.3 10^3/uL (1.5-8.5); NEUTROPHILS % 72.2 % (36.0-66.0); PLATELET COUNT, AUTOMATED 387 10^3/uL (150-450); RED BLOOD COUNT 4.17 10^6/uL (4.00-5.40); WHITE BLOOD COUNT 10.1 10^3/uL (4.0-10.0)
[2021-05-30 18:06] LABS: C REACTIVE PROTEIN QUANTITATIV 2.14 MG/DL (0.00-0.30)
[2021-05-30 18:38] LABS: ERYTHROCYTE SEDIMENTATION RATE 54 mm/hr (0-30)
[2021-06-01 11:31] LABS: CALCIUM LEVEL 9.9 MG/DL (8.8-10.2); CREATININE FOR GFR 1.84 MG/DL (0.55-1.30); GLOMERULAR FILTRATION RATE 36.1 (>45); POTASSIUM SERUM 4.8 MEQ/L (3.5-5.1)
== END ==
LOC: M PLAIMG 14:50
PROVIDERS: ATTEND Physician Assistant Medical
DX: R07.81 Pleurodynia (principal)

== ENCOUNTER 2021-06-01 12:55 | Inpatient (IN) | payer BC ==
[~2021-06-01] VITALS: Ht 160 cm; Wt 68.7 kg
[~2021-06-01 12:55] MED LIST changes: -ACET300T52; -ALEV220T22 PO; -AMLO1TAB25 PO; -ASPE4PAD2 TOP; -BACL10TA2; -GABA-1171; -ISOS20TAB PO; -LIDO1.1P TOP; -LOPR1TAB6 PO; -METO1TAB32; -METO1TAB32 PO; -PERCOCET PO; -PRED20TA; -TRIA1OI80 TOP
[2021-06-01] MEDS ORDERED: ACET300T52 (13:17)
[2021-06-01] MEDS ORDERED: BACL10TA2 (13:17)
[2021-06-01] MEDS ORDERED: GABA-1171 (13:17)
[2021-06-01] MEDS ORDERED: LIDO1.1P TOP (13:17)
[2021-06-01] MEDS ORDERED: METO1TAB32 (13:17)
[2021-06-01] MEDS ORDERED: PRED20TA (13:17)
[2021-06-01 14:16] LABS: BASO # 0.1 10^3/uL (0.0-0.2); BASO % 0.5 % (0.0-1.0); EOS # 0.1 10^3/uL (0.0-0.5); EOS % 0.7 % (0.0-3.0); HEMATOCRIT 40.1 % (36.0-47.0); HEMOGLOBIN 13.6 g/dl (12.0-15.5); LYMPH # 1.6 10^3/uL (1.5-5.0); LYMPH % 13.5 % (24.0-44.0); MEAN CORPUSCULAR HEMOGLOBIN 31.1 pg (27.0-33.0); MEAN CORPUSCULAR HGB CONC 33.9 g/dl (32.0-36.5); MEAN CORPUSCULAR VOLUME 91.6 fl (80.0-96.0); MONO # 0.8 10^3/uL (0.0-0.8); MONO % 6.7 % (2.0-8.0); NEUTROPHILS # 9.5 10^3/uL (1.5-8.5); NEUTROPHILS % 78.1 % (36.0-66.0); PLATELET COUNT, AUTOMATED 462 10^3/uL (150-450); RED BLOOD COUNT 4.38 10^6/uL (4.00-5.40); WHITE BLOOD COUNT 12.1 10^3/uL (4.0-10.0)
[2021-06-01 14:30] LABS: INR 1.12; PROTHROMBIN TIME 14.8 SECONDS (12.7-14.5)
[2021-06-01 14:31] LABS: PARTIAL THROMBOPLASTIN TIME 27.6 SECONDS (25.9-37.0)
--- NOTE | 2021-06-01 14:37 | REP ---
INDICATION: CHEST PAIN. COMPARISON: Comparison chest x-ray May 30, 2021. TECHNIQUE: Head. FINDINGS: EKG monitoring electrodes overlie the chest. The lungs are well inflated and clear. There is linear fibrosis in the left base unchanged. An old granulomatous calcification is seen in the right base also unchanged. Heart is not felt to be enlarged. Pulmonary vasculature is not increased. There are degenerative changes in the shoulders and in the thoracic aorta. No infiltrate is seen. IMPRESSION: Linear fibrosis left base. Granulomatous calcification right base. Otherwise no acute disease. <Electronically signed by Jarrod Craven > 06/01/21 [id number]
[2021-06-01 14:47] LABS: ALBUMIN 4.1 GM/DL (3.2-5.2); ALT/SGPT 16 U/L (12-78); BILIRUBIN,DIRECT 0.2 MG/DL (0.0-0.2); BILIRUBIN,TOTAL 0.6 MG/DL (0.2-1.0); BLOOD UREA NITROGEN 39 MG/DL (7-18); CALCIUM LEVEL 10.5 MG/DL (8.8-10.2); CARBON DIOXIDE LEVEL 21 MEQ/L (21-32); CHLORIDE LEVEL 98 MEQ/L (98-107); CK-MB VALUE MASS < 1.0 NG/ML (<3.6); CPK CREATINE PHOSPHOKINASE 105 U/L (26-192); CREATININE FOR GFR 1.74 MG/DL (0.55-1.30); GLOMERULAR FILTRATION RATE 38.5 (>45); GLUCOSE, FASTING 83 MG/DL (70-100); LIPASE 195 U/L (73-393); MB/CK RELATIVE INDEX 0.95 (< OR =4); SODIUM LEVEL 129 MEQ/L (136-145); TOTAL PROTEIN 8.2 GM/DL (6.4-8.2); TROPONIN I < 0.02 NG/ML (< 0.10)
[2021-06-01] MEDS ORDERED: NS 1,000 ML IV SCH ×2 (14:55→20:00)
[2021-06-01] MEDS ORDERED: MORPHINE 4 MG/ML 1ML VIAL/SYRINGE (J2270) IV ONE (14:55)
[2021-06-01] MEDS ORDERED: ISOVUE-370 76% 100ML VIAL As Ordered ONE (15:38)
--- NOTE | 2021-06-01 17:10 | REP ---
INDICATION: R chest pain sob. COMPARISON: Radiographs today. TECHNIQUE: CT angiogram chest performed following the intravenous administration of 100 cc of Isovue 370. Sagittal and coronal reconstruction images are performed. FINDINGS: Lungs: There are bilateral lower lobe fibro atelectatic changes. There is a calcified granuloma in the right costophrenic angle. Mediastinum: Scattered calcified lymph nodes present. Pulmonary arteries: No evidence of pulmonary embolism. Kaylah: Calcified right hilar lymph nodes present. Axilla: No adenopathy. Pleura: No effusion. Heart: Mildly enlarged. Thoracic aorta: No aneurysm or dissection. Visualized osseous structures: There are degenerative changes of the spine without compression deformity IMPRESSION: No CT evidence of pulmonary embolism. No infiltrate seen. <Electronically signed by Sang Moore > 06/01/21 [id number]
--- NOTE | 2021-06-01 17:18 | REP ---
INDICATION: R chest pain sob COMPARISON: 10/19/2015. TECHNIQUE: CT Scan of the abdomen and pelvis was performed with intravenous administration of 100 cc of Isovue 370, without oral contrast. Sagittal and coronal reconstruction images are performed. FINDINGS: Liver: Normal Gallbladder: Unremarkable. Spleen: Normal. Adrenals: Normal. Pancreas: Normal. Kidneys: There is a 3.2 cm cyst in the mid right kidney. There is no hydronephrosis bilaterally. Small and large bowel: Unremarkable. There is no free air or obstruction. Free fluid: None. Abdominal aorta: No aneurysm or dissection. Adenopathy: None. Appendix: Not inflamed. Osseous structures: There are mild degenerative changes of the spine. Pelvis: No mass. Prior hysterectomy. IMPRESSION: No acute pathology in the abdomen or pelvis. <Electronically signed by Sang Moore > 06/01/21 [id number]
[2021-06-01] MEDS ORDERED: NALOXONE INJ 0.4MG/1ML VIAL (J2310 PER 1MG) IV PRN (17:30)
[2021-06-01] MEDS ORDERED: NS 2,000 ML IV ONE (17:30)
[2021-06-01] MEDS ORDERED: PERCOCET 5MG/325MG TAB PO PRN ×2 (17:30)
[2021-06-01] MEDS ORDERED: MORPHINE 10 MG/ML 1ML VIAL (J2270) IV ONE (18:20)
[2021-06-01] MEDS: PERCOCET 5MG/325MG TAB PO SCH (18:53)
[2021-06-01] MEDS: ONDANSETRON 4MG/2ML VIAL IV SCH ×2 (18:53→23:37)
[2021-06-01 19:05] LABS: RSV AMPLIFICATION NEGATIVE (NEGATIVE)
[2021-06-01] MEDS ORDERED: AMLO1TAB24 PO (19:51)
[2021-06-01] MEDS ORDERED: METO1TAB32 PO (19:51)
[2021-06-01] MEDS ORDERED: ASPE4PAD2 TOP (19:51)
[2021-06-01] MEDS ORDERED: ALEV220T22 PO (19:51)
[2021-06-01] MEDS ORDERED: HOME MED LIST COMPLETE! XX SCH (19:55)
[2021-06-01] MEDS ORDERED: TRIA1OI80 TOP (19:56)
--- NOTE | 2021-06-01 19:57 | ECGEPIP ---
[facility] - ED Test Date: 2021-06-01 Pat Name: EDGAR COELHO Department: Room: - Gender: Female [employer] Supervisor: LR : 1960 Requested By: HIREN Dejesus Order Number: [id number] Reading MD: Mook Gallego Measurements Intervals Schuyler Rate: 84 P: 80 SC: 190 QRS: 52 QRSD: 162 T: 81 QT: 426 QTc: 503 Interpretive Statements Normal sinus rhythm Left bundle branch block Baseline artifact Prolonged QTc interval Similar to tracing done 06-30-19 Electronically Signed on 06-01-2021 19:56:35 EDT by Mook Gallego
[2021-06-01 20:33] LABS: TOTAL PROTEIN 6.8 GM/DL (6.4-8.2); URIC ACID 7.2 MG/DL (2.6-6.0)
[2021-06-01 20:45] LABS: PTH INTACT 51.2 PG/ML (18.5-88.0); TOTAL 25(OH) VITAMIN D 7.7 NG/ML (30.0-100.0)
[2021-06-01 20:46] LABS: OSMOLALITY SERUM 285 MOSM/KG (275-295)
[2021-06-01] MEDS ORDERED: METOPROLOL TART 25 MG TABLET PO SCH (21:00)
[2021-06-01] MEDS ORDERED: amLODIPine 5 MG TAB PO SCH (21:00)
[2021-06-01] MEDS ORDERED: cloNIDine HCL 0.1 MG/24 HR PATCH TOP SCH (21:00)
--- NOTE | 2021-06-01 21:13 | HPE ---
HISTORY AND PHYSICAL DATE OF ADMISSION: 06/01/2021 CHIEF COMPLAINT: Right-sided abdominal pain, nausea, vomiting. HISTORY OF PRESENT ILLNESS: This is a 61-year-old -[place] female who presented to the emergency room with a four week history of right-sided upper abdominal pain radiating to her right shoulder, down the flank and down to the right rib under the breast for the past four weeks. She initially went to urgent care and was given a muscle relaxer. X-ray and blood work were negative. As she has had no relief and was unable to get in to her see her primary care physician, eventually she was able to see a provider at the [facility] office. She was given an ointment to place on the musculoskeletal area with no relief. She then went to her regular primary care physician, was given codeine pain medications with no relief. She started vomiting with intractable nausea Sunday. After taking the codeine pills, she was told not to take her hydrochlorothiazide for hypertension when she was vomiting. She was vomiting incessantly with epigastric abdominal pain, right upper quadrant abdominal pain from Sunday into Sunday. She has had some difficulty catching her breath because it hurts when she takes a deep breath. She describes the pain as very sharp. It will last for about 2-1/2 hours. Position does not make it better or worse. She feels better when she leans forward to walk. She otherwise denies any palpitations, lightheadedness, dizziness, diaphoresis, dysuria, urgency, frequency, hematuria. She has had a weight loss of about 15 lb for the past one month due to decrease in oral intake. She has been able to keep down urbano jim and water but no oral intake. She has not had a bowel movement in about 9 weeks. The patient also complains of upper back pain, left elbow pain and bilateral shoulder pain. She denies any recent trauma. She denies taking nonsteroidal anti-inflammatories such as ibuprofen, Aleve or Naprosyn and she has stopped taking her hydrochlorothiazide. Today in the emergency room, she was worked up for pulmonary embolism, pneumonia or effusion. CT, chest showed no pulmonary embolism, infiltrate, consolidation, aneurysm or dissection. She has scattered calcified lymph nodes in the mediastinum and bilateral lower lobe fibroatelectasis with a calcified granuloma of the right costophrenic angle. The heart is mildly enlarged, no axillary adenopathy. Due to complaints of nausea and vomiting which was intractable after taking her codeine, she was evaluated by CT, abdomen and pelvis which showed incidental finding of a 3.2 cm mid-right kidney cyst, otherwise unremarkable small and large bowel. Osseous structures showed mild degenerative disease of the spine and prior hysterectomy, no other acute pathology of the abdomen or pelvis. Coronavirus is still pending. Patient had a slight white count of 12,000 with 78% neutrophil shift, no bandemia. Sodium was 129 and creatinine was 1.7 which is new with hypercalcemia with a calcium of 10.5. Urinalysis is pending. The hospitalist was asked to admit the patient due to acute kidney injury, intractable nausea, vomiting and persistent right upper quadrant abdominal pain and back pain. EKG as unremarkable with chronic left bundle branch block. There were negative troponins. Previous rib x-ray on 05/30/2021 shows normal rib series with prior granulomatous disease. Thoracic spine x-ray on 05/18/2021 showed chronic pulmonary parenchymal changes and calcified lymph nodes suggesting prior granulomatous disease. Thoracic spine demonstrates osteopenia and multilevel age-related changes. Shoulder x-ray has not been done. PAST MEDICAL HISTORY: 1. Hypertension. 2. Prior granulomatous disease. 3. Osteopenia of the thoracic spine. 4. Hypercholesterolemia. 5. History of lacunar infarct. 6. Gastroesophageal reflux disease. 7. Active tobacco abuse. ALLERGIES: No known drug allergies. PAST SURGICAL HISTORY: 1. Bilateral tubal ligation, 1993. 2. Some teeth extraction. 3. Exploratory laparotomy. 4. Hysterectomy. FAMILY HISTORY: Father and mother both of CVA. Mother had diabetes and hypertension. Brother of [place]. HOME MEDICATIONS: 1. Amlodipine 5 mg daily. 2. Aspirin 81 daily. 3. Baclofen 10 mg as needed. 4. Cyclobenzaprine 10 mg. 5. Gabapentin 100 mg. 6. Hydrochlorothiazide 25 daily. 7. Metoprolol 25 daily. 8. Naprosyn 500 as needed. 9. Zofran 4 mg t.i.d. as needed. 10. Prednisone 20 mg daily. 11. Simvastatin 20 daily. 12. Valsartan 320 daily. 13. Lidoderm patch topically b.i.d. 14. Acetaminophen with codeine one tablet as needed. SOCIAL HISTORY: Previously smoked, quit 2019, restarted again but quit three weeks ago. Alcohol use: Quit the past four weeks, no history of alcohol abuse. 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 She is . REVIEW OF SYSTEMS: As per HPI, 12-point system otherwise negative. PHYSICAL EXAMINATION: VITAL SIGNS: Temperature is 98.9, pulse 74, respiratory rate 25, blood pressure 163/78, oxygen saturation 100% on room air. GENERAL: The patient is awake, alert and oriented to person, place and time, no distress, able to speak in full sentences, no use of respiratory accessory muscles. Dry mucous membranes with chapped lips, no JVD, thyromegaly or cervical lymphadenopathy. Patient has point tenderness at T8 to T12. Her right shoulder has limited range of motion with abduction secondary to pain. LUNGS: Clear to auscultation, no wheezing, rales or rhonchi. HEART: S1, S2, sinus rhythm. No murmurs, rubs or gallops. ABDOMEN: Tenderness in the right upper quadrant. No rebound, guarding. Positive bowel sounds. No CVA tenderness bilaterally. EXTREMITIES: No cyanosis, clubbing or pitting edema. LABORATORY DATA: White count 12.1, hemoglobin 13, hematocrit 40, platelet count 462. Sodium 129, potassium 4, chloride 98, bicarb 21, BUN 39, creatinine 1.74. Glucose of 83, calcium of 10.5. Total bilirubin 0.6, direct bilirubin 0.2. AST 14, ALT 16. Alk phos 112. Total CK 105, MB fraction less than 1, relative index 0.95, troponin less than 0.02. EKG: Sinus rhythm, ventricular rate of 84 with chronic left bundle branch block. TSH of 3.09, free T4 1.3. IMAGING STUDIES: CT, abdomen and pelvis: Normal liver, gallbladder, spleen, adrenals, pancreas, small and large bowel. Abdominal aorta has no aneurysm or dissection, no lymphadenopathy. Appendix is not inflamed. Degenerative changes of the spine. Pelvis has no mass, prior hysterectomy. Kidneys have a 3.2 cyst in the mid-right kidney, no hydronephrosis bilaterally. CT, chest: No pulmonary embolism, pneumonia, infiltrate, consolidation, aneurysm or dissection. No lymphadenopathy. Right hilar calcified lymph node. Scattered calcified lymph nodes present. Calcified granuloma in the right costophrenic angle and bilateral lower lobe fibroatelectasis. Degenerative changes of the spine without compression deformity, no infiltrate seen. ASSESSMENT AND PLAN: 61-year-old female presents to the emergency room with one month history of right upper quadrant abdominal pain with normal liver function test and CT, abdomen and pelvis. The patient denies any recent trauma, had been taking her hydrochlorothiazide and Naprosyn, was found to have acute kidney injury, creatinine of 1.84, has developed nausea and vomiting after taking codeine pain medications and prednisone, found to have elevated white count of 12.1, acute kidney injury of 1.74. The patient will be admitted as an inpatient for the following acute issues: 1. Acute kidney injury, creatinine of 1.84 from prior creatinine of 0.86. This acute kidney injury is most likely secondary to nausea, vomiting induced by opiates which she was given for pain control as well as decreased oral intake and continued use of her hydrochlorothiazide and valsartan. The patient had been given Naprosyn and was likely related to NSAID induced as well as decreased oral intake with hypovolemia. The patient will be given fluids. We will discontinue hydrochlorothiazide, Naprosyn and valsartan for now. Norvasc would be okay for blood pressure control as well as increasing doses of metoprolol as needed. 2. Hyponatremia secondary to nausea, vomiting, decreased oral intake and continued use of her hydrochlorothiazide. Recheck metabolic panel. IV fluids for now, normal saline x2 liters. No mental status changes or seizure activity. 3. Right upper quadrant abdominal pain. Liver function tests and CT of abdomen and pelvis are all negative. She has no erythematous rash or vesicular lesions to be concerned about herpetic zoster eruption. The patient had been given prednisone as well as Lidoderm patch as an outpatient. We will check for HSV, IgM levels for now due to acute kidney injury with hypercalcemia and bone pain. The patient will be ruled out for multiple myeloma with skeletal bone series, SPEP and UPEP. IV fluids for the hypercalcemia. Check vitamin D, parathyroid hormones. 4. For acute kidney injury, check bladder scan and strict I&Os, daily weights for now. No hydronephrosis on CT of abdomen and pelvis. Avoid all nephrotoxins and renally dose all medications. 5. Prior history of lacunar infarct most likely secondary to uncontrolled hypertension. She is on chronic aspirin which we may continue. 6. Hypertension. Hold patient's valsartan, hydrochlorothiazide for now. May resume on metoprolol and Norvasc. 7. DVT prophylaxis: Compression stockings.
--- NOTE | 2021-06-01 21:53 | REPVR ---
PROCEDURE INFORMATION: Exam: XR Right Shoulder Exam date and time: 06/01/2021 9:24 PM Age: 61 years old Clinical indication: Pain; Shoulder; Right; Additional info: Right shoulder pain TECHNIQUE: Imaging protocol: XR Right shoulder. Views: 2 or more views. COMPARISON: CR Shoulder, complete 10/30/2014 2:42 PM FINDINGS: Bones/joints: Degenerative spurring at the glenohumeral joint with question of loose body at the inferior aspect of the glenoid. No acute fracture or dislocation. Soft tissues: Within normal limits. IMPRESSION: 1. 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 2. Otherwise negative right shoulder. No acute fracture. Electronically signed by: Abdi Gaston On 06/01/2021 21:52:39 PM
[2021-06-01] MEDS: MORPHINE 4 MG/ML 1ML VIAL/SYRINGE (J2270) IV PRN (21:55)
[2021-06-01 23:10] VITALS: BP 156/74
--- NOTE | 2021-06-01 23:24 | REPVR ---
PROCEDURE INFORMATION: Exam: MR Thoracic Spine Without Contrast Exam date and time: 06/01/2021 10:48 PM Age: 61 years old Clinical indication: Pain in thoracic spine; Without myelpathy or radiculopathy; Additional info: Severe upper back pain TECHNIQUE: Imaging protocol: Multiplanar magnetic resonance images of the thoracic spine without intravenous contrast. COMPARISON: CR Spine, Thoracic 3 VIEWS 05/18/2021 4:18 PM FINDINGS: Vertebrae: There is no fracture. The vertebral bodies maintain their height and alignment. Stir images demonstrate no evidence of bone marrow edema or marrow infiltrating lesion. Spinal cord: The thoracic spinal cord is normal. No signal abnormality. T1-T2: Small, less than 2 mm, right paracentral disc protrusion slightly indenting the thecal sac. No central or foraminal stenosis. T2-T3: Less than 2 mm diffuse disc bulge. No central or foraminal stenosis. T3-T4: Small bilobed disc protrusion slightly encroaching on the lateral recesses. No central or foraminal stenosis. T4-T5: Minimal disc bulge. No central or foraminal stenosis. T5-T6: No significant disc disease. No significant spinal canal stenosis. T6-T7: 2 mm left paracentral disc protrusion slightly indenting the thecal sac. No central or foraminal stenosis. T7-T8: 2 mm left paracentral disc protrusion slightly indenting the thecal sac. No central stenosis. Mild left foraminal stenosis. T8-T9: No significant disc disease. No significant spinal canal stenosis. T9-T10: No disc bulge. Facet hypertrophy with mild right foraminal stenosis. No central stenosis. T10-T11: No disc bulge. Facet hypertrophy with mild left foraminal stenosis. No central stenosis. T11-T12: No significant disc disease. No significant spinal canal stenosis. Soft tissues: No paraspinous or intraspinal mass, hemorrhage or fluid collection. IMPRESSION: Small disc protrusions as detailed above Electronically signed by: Joe Madison On 06/01/2021 23:24:22 PM
--- NOTE | 2021-06-01 23:28 | REPVR ---
PROCEDURE INFORMATION: Exam: MR Lumbar Spine Without Contrast Exam date and time: 06/01/2021 10:48 PM Age: 61 years old Clinical indication: Low back pain; Additional info: Severe back pain TECHNIQUE: Imaging protocol: Multiplanar magnetic resonance images of the lumbar spine without intravenous contrast. COMPARISON: CT ABD/PEL W/IV CONTRAST ONLY 06/01/2021 4:34 PM FINDINGS: Vertebrae: There is no fracture. Lumbar vertebra maintain their height and alignment. Stir images demonstrate no evidence of bone marrow edema or marrow infiltrating lesion. Spinal cord: The lower thoracic spinal cord, conus and cauda equina are normal. L1-L2: No significant disc disease. No significant spinal canal stenosis. No neural foraminal stenosis. L2-L3: No significant disc disease. No significant spinal canal stenosis. No neural foraminal stenosis. L3-L4: There is a 4 mm far right lateral disc protrusion slightly encroaching on the right foramen. This is superimposed on facet arthropathy resulting in mild right foraminal stenosis. No central stenosis. L4-L5: No disc bulge. There is facet arthropathy with facet effusions. There is no central stenosis. There is mild left foraminal stenosis. L5-S1: No disc bulge. There is facet arthropathy. There is no central stenosis. There is mild left foraminal stenosis. Soft tissues: There is no paraspinous or intraspinal mass, hemorrhage or fluid collection. Kidneys and ureters: There is a partly visible right renal cyst. This cannot be further evaluated as it is incompletely included on the scan. IMPRESSION: Mild disc disease and facet arthropathy as detailed above Electronically signed by: Joe Madison On 06/01/2021 23:27:55 PM
--- NOTE | 2021-06-01 23:56 | REPVR ---
PROCEDURE INFORMATION: Exam: XR Osseous Survey; Complete Axial And Appendicular Skeleton Exam date and time: 06/01/2021 9:24 PM Age: 61 years old Clinical indication: Screening exam; Additional info: Renal failure hypercalcemia R/O multiple myeloma TECHNIQUE: Imaging protocol: Radiological examination. Complete osseous survey. Axial and appendicular skeleton. COMPARISON: CR Shoulder, complete 10/30/2014 2:42 PM FINDINGS: Bones/joints: Degenerative changes of the shoulders with separate loose body or ossification adjacent to the inferior right glenoid. Early degenerative changes noted in the knees. No fractures. No lytic osseous lesions. There are loose bodies in the posterior aspect of the left elbow. Early degenerative changes noted in the left elbow. No focal lytic lesions. Minimal to mild degenerative spurring is noted in the thoracic spine. Soft tissues: Unremarkable. Lungs: Mild left lung base atelectasis or scar. IMPRESSION: 1. Scattered degenerative changes are noted in the shoulders knees and left elbow. 2. Loose bodies are associated with the left elbow and right shoulder. 3. Otherwise negative osseous structures. No focal lytic lesions are noted. Electronically signed by: Abdi Gaston On 06/01/2021 23:55:36 PM
[2021-06-02] MEDS: PERCOCET 5MG/325MG TAB PO SCH ×6 (00:11→21:48)
[2021-06-02 00:50] LABS: CALCIUM LEVEL 9.1 MG/DL (8.8-10.2); CREATININE FOR GFR 1.44 MG/DL (0.55-1.30); GLOMERULAR FILTRATION RATE 47.9 (>45); POTASSIUM SERUM 4.2 MEQ/L (3.5-5.1)
[2021-06-02] MEDS: ONDANSETRON 4MG/2ML VIAL IV SCH ×2 (05:29→12:00)
[2021-06-02] MEDS: MORPHINE 4 MG/ML 1ML VIAL/SYRINGE (J2270) IV PRN ×2 (05:31→21:23)
[2021-06-02 06:00] VITALS: BP 156/71
[2021-06-02] MEDS ORDERED: PERCOCET PO (06:05)
[2021-06-02] MEDS ORDERED: ISOS20TAB PO (06:05)
[2021-06-02] MEDS ORDERED: LOPR1TAB6 PO (06:05)
[2021-06-02] MEDS ORDERED: AMLO1TAB25 PO (06:05)
[2021-06-02] MEDS: NS 1,000 ML IV SCH ×2 (06:16→13:31)
[2021-06-02] MEDS ORDERED: METOCLOPRAMIDE INJ 10MG/2ML VIAL (J2765 PER 1) IV ONE (06:35)
[2021-06-02] MEDS ORDERED: GLUCOSE 4GM CHEW TABLET PO PRN (06:40)
[2021-06-02] MEDS ORDERED: DEXTROSE 50% 50 ML SYRINGE IV PRN (06:40)
[2021-06-02] MEDS ORDERED: GLUCAGON INJ 1MG VIAL SC PRN (06:40)
[2021-06-02 06:44] LABS: BASO % 0.2 % (0.0-1.0); EOS % 0.2 % (0.0-3.0); HEMATOCRIT 32.1 % (36.0-47.0); LYMPH # 0.9 10^3/uL (1.5-5.0); LYMPH % 9.1 % (24.0-44.0); MEAN CORPUSCULAR HEMOGLOBIN 31.2 pg (27.0-33.0); MONO # 0.4 10^3/uL (0.0-0.8); NEUTROPHILS # 8.8 10^3/uL (1.5-8.5); NEUTROPHILS % 86.1 % (36.0-66.0); RED BLOOD COUNT 3.49 10^6/uL (4.00-5.40); WHITE BLOOD COUNT 10.2 10^3/uL (4.0-10.0)
[2021-06-02 06:47] LABS: HEMOGLOBIN 10.9 g/dl (12.0-15.5); PLATELET COUNT, AUTOMATED 359 10^3/uL (150-450)
[2021-06-02 07:02] LABS: CALCIUM LEVEL 9.2 MG/DL (8.8-10.2); CREATININE FOR GFR 1.34 MG/DL (0.55-1.30); POTASSIUM SERUM 3.9 MEQ/L (3.5-5.1)
[2021-06-02] MEDS: NITROGLYCERIN 2% OINT 1 GM *U/D* PKT TOP SCH ×3 (07:44→18:17)
[2021-06-02] MEDS ORDERED: cloNIDine HCL 0.3 MG/24 HR PATCH TOP SCH (09:00)
[2021-06-02] MEDS ORDERED: METOPROLOL TART 50 MG TAB PO SCH (09:00)
[2021-06-02 09:32] LABS: HEMOGLOBIN A1c 5.8 %
[2021-06-02] MEDS: LIDOCAINE 5% (LIDODERM) PATCH TD SCH (09:43)
[2021-06-02] MEDS ORDERED: E-Z-PAQUE 96% w/w SUSP 176GM BTL As Ordered ONE (09:53)
[2021-06-02] MEDS ORDERED: E-Z-HD 98% w/w 340GM SUSP BTL As Ordered ONE (09:54)
[2021-06-02] MEDS ORDERED: E-Z-GAS II EFFERVESCENT PACKET (SODIUM BICARB./CITRIC ACID/SIMETHICONE) As Ordered ONE (09:54)
[2021-06-02] MEDS ORDERED: FLUBLOK(EGG FREE)(QUAD)INFLUENZA VACC 0.5ML SYRINGE 18YRS & OLDER IM ONE (10:00)
[2021-06-02 12:12] LABS: ALBUMIN 3.69 GM/DL (3.29-5.55); ALBUMIN % 54.3 % (55.8-66.1); ALPHA-1-GLOBULIN % 6.7 % (2.9-4.9); ALPHA-1-GLOBULINS 0.46 GM/DL (0.17-0.41); ALPHA-2-GLOBULINS 0.84 GM/DL (0.42-0.99); ALPHA-2-GLOBULINS % 12.3 % (7.1-11.8); BETA-1-GLOBULINS 0.73 GM/DL (0.28-0.60); BETA-1-GLOBULINS % 10.7 % (4.7-7.2); BETA-2-GLOBULINS 0.41 GM/DL (0.19-0.55); GAMMA GLOBULINS 0.68 GM/DL (0.65-1.58)
[2021-06-02] MEDS: METOCLOPRAMIDE INJ 10MG/2ML VIAL (J2765 PER 1) IV SCH ×2 (13:28→17:17)
[2021-06-02 14:18] LABS: CALCIUM LEVEL 9.6 MG/DL (8.8-10.2); CREATININE FOR GFR 1.29 MG/DL (0.55-1.30); GLOMERULAR FILTRATION RATE 54.4 (>45); POTASSIUM SERUM 4.2 MEQ/L (3.5-5.1)
[2021-06-02 14:30] VITALS: BP 152/68
--- NOTE | 2021-06-02 15:20 | IPN ---
PROGRESS NOTE DATE: 06/02/2021 SUBJECTIVE: Patient complains of intractable nausea, unable to keep her Norvasc and metoprolol down. She has 10 out of 10 pain in the upper back radiating to her shoulder. X-ray shows thoracic disc bulges. Patient denies any fever or chills, chest pain, pressure or tightness, lightheadedness or shortness of breath. OBJECTIVE: Vital signs: Temperature 97.5, pulse 62, respiratory rate 16, blood pressure 156/71, 96% on room air. General: Awake, alert, oriented to person, place and time, answering questions appropriately. Neck: No JVD, thyromegaly or cervical lymphadenopathy. Lungs: Clear to auscultation, no wheezes, rhonchi or rales. Heart: S1 and S2 sinus rhythm. Abdomen: Soft with epigastric tenderness, no guarding or rebound. No CVA tenderness. Patient does have vertebral tenderness in the T4-T8 area. Extremities: No cyanosis, clubbing or pitting edema. LABORATORY DATA: CBC, metabolic panel and microbiology have been reviewed. IMAGING STUDIES: Reviewed. ASSESSMENT: This is a 61-year-old -[place] female admitted for acute kidney failure with hypercalcemia, being worked up for multiple myeloma, but negative skeletal x-ray and improving creatinine with I.V. fluids. Patient was taking non-steroidal anti-inflammatories along with her diuretics and ARB and had been vomiting due to opioids being given for back pain. CT chest, abdomen and pelvis were all negative. There is no pulmonary embolism, no gallstones, cholelithiasis or choledocholithiasis noted on CT abdomen and pelvis with normal liver function tests. Creatinine has improved with I.V. fluid hydration overnight. Still awaiting UA and urine protein electrophoresis and SPEP. IMPRESSIONS/PLAN: 1. Acute kidney injury secondary to NSAID use along with decreased oral intake in the setting of chronic hydrochlorothiazide and valsartan: Patient has improved with I.V. fluids overnight. There is no hydronephrosis, kidney stone on CT abdomen and pelvis. Awaiting urinalysis to rule out acute infection, but no pyelonephritis on CT. due to hypercalcemia, bone pain and acute kidney injury patient is being worked up for multiple myeloma, but skeletal survey is reassuring and appears to be normal. Calcium level is back to normal after I.V. fluid hydration. We are awaiting SPEP and UPEP and light chains. Monitor patient's metabolic panel, strict I's and O's, daily weights and fluid being given which has shown improvement. 2. Intractable nausea and vomiting: Initially thought to be opioid induced since this all started after patient was placed on opioid narcotics as outpatient for back pain. At this time patient is uncontrolled, unable to keep any oral intake therefore metoprolol and Norvasc have been discontinued. She has been placed on Catapres patch and nitroglycerin patch for blood pressure control. We will obtain an upper GI series to rule out hiatal hernia, ulcer disease and strictures as well as a nuclear medicine gastric emptying scan to rule out gastroparesis. Obtain A1c to rule out diabetes that could be causing the gastroparesis. N.p.o. status for tests. May resume a liquid diet if tolerated. May advance to small frequent meals with 2 grams sodium. 3. Hyponatremia secondary to decreased oral intake with vomiting and dehydration, hypovolemia: Improving on I.V. fluids, almost back to normal, currently 134 with no mental status changes, appropriate increase with less than 10 mEq over the past 24 hours. 4. Leukocytosis most likely reactive and prednisone induced; she was given prednisone as outpatient. 5. Thoracic and lumbar disc disease with disc bulges: Outpatient follow up. This is most likely causing much of her pain. she is currently on q6h Percocet, but it is causing nausea therefore she has been placed on Zofran, Reglan and Percocet 1 tablet every 4 hours with holding parameters for lethargy, altered mental status and respiratory depression. 6. Disposition: Patient is not taking any oral intake today due to persistent nausea and vomiting therefore she is not ready for hospital discharge and will need 1-2 more days. MTDD
--- NOTE | 2021-06-02 16:25 | REP ---
INDICATION: intractable n/v epigastric abd pain. COMPARISON: None TECHNIQUE: This procedure was performed by Valarie Voss [facility], under the direct supervision of Dr. Moore. Images were reviewed with Dr. Moore prior to dictation. Liquid barium and gas producing crystals were given in the erect position, as well as liquid barium in the prone oblique position in order to perform a double contrast upper GI examination. Additional liquid barium was given at the end of the examination in order to perform a small-bowel follow-through. FINDINGS: The crtts film shows no organomegaly or pathological masses. The intestinal gas pattern is unremarkable. The oral and pharyngeal stages of deglutition were unremarkable. Esophageal transport is prompt and efficient and there is no evidence of esophagitis, stricture, or mucosal ring. There is no evidence of a hiatal hernia. No gastroesophageal reflux was visualized, but the patient did vomit twice during the exam.. While a double contrast study was attempted as soon as the patient was given gas producing crystals she vomited. Due to the inability to maintain air in the stomach there is limited evaluation of the stomach mucosa. The stomach does appear to distend well. The duodenal torres are normally outlined. The mucosal folds are smooth and regular. There is no duodenitis, peptic ulcer disease or neoplasm. The visualized portion of the proximal small bowel appears normal in course and caliber. The barium column was followed through the small bowel to the level of the terminal ileum. Small bowel transit time is approximately 130 minutes. During fluoroscopy gentle palpation shows all loops are freely movable and pliable. There is no fixed angulated loops. The small bowel mucosal pattern is normal in course and caliber. There is no transition to suggest a partial small bowel obstruction. Spot filming of the terminal ileum shows it to be unremarkable. IMPRESSION: 1. Limited evaluation of stomach mucosa as discussed above. Otherwise unremarkable upper GI small-bowel follow-through. 0.2 minutes of fluoroscopy time was utilized for this procedure. Some fluoroscopic images are performed with last image hold technology. These images require no additional radiation. <Electronically signed by Valarie Voss > 06/02/21 1525 <Electronically signed by Sang Moore > 06/02/21 [id number]
[2021-06-02] MEDS ORDERED: METOCLOPRAMIDE INJ 10MG/2ML VIAL (J2765 PER 1) IV PRN (17:55)
[2021-06-02] MEDS ORDERED: ONDANSETRON 4MG/2ML VIAL IV PRN (17:55)
[2021-06-02] MEDS: GI COCKTAIL 50ML BTL(HYOSCYAMINE/MAALOX/LIDOCAINE VISCOUS)(1:3:1) PO PRN (18:24)
[2021-06-02 18:47] LABS: CALCIUM LEVEL 9.5 MG/DL (8.8-10.2); CREATININE FOR GFR 1.3 MG/DL (0.55-1.30); GLOMERULAR FILTRATION RATE 53.9 (>45); POTASSIUM SERUM 4.4 MEQ/L (3.5-5.1)
[2021-06-02] MEDS ORDERED: **NOTE PATIENT COMMENT** MISC XX SCH (21:00)
[2021-06-02 21:19] VITALS: BP 110/53
[2021-06-03] MEDS: GI COCKTAIL 50ML BTL(HYOSCYAMINE/MAALOX/LIDOCAINE VISCOUS)(1:3:1) PO PRN (00:21)
[2021-06-03] MEDS: MORPHINE 4 MG/ML 1ML VIAL/SYRINGE (J2270) IV PRN (00:23)
[2021-06-03 00:48] LABS: BLOOD UREA NITROGEN 19 MG/DL (7-18); CALCIUM LEVEL 8.7 MG/DL (8.8-10.2); CARBON DIOXIDE LEVEL 21 MEQ/L (21-32); CHLORIDE LEVEL 110 MEQ/L (98-107); GLOMERULAR FILTRATION RATE > 60.0 (>45); GLUCOSE, FASTING 87 MG/DL (70-100); POTASSIUM SERUM 3.8 MEQ/L (3.5-5.1); SODIUM LEVEL 137 MEQ/L (136-145)
[2021-06-03] MEDS: PERCOCET 5MG/325MG TAB PO SCH ×4 (01:12→14:00)
[2021-06-03] MEDS: NITROGLYCERIN 2% OINT 1 GM *U/D* PKT TOP SCH ×2 (05:43)
[2021-06-03 06:00] VITALS: BP 142/80
[2021-06-03 06:18] LABS: BASO % 0.5 % (0.0-1.0); EOS # 0.1 10^3/uL (0.0-0.5); EOS % 0.8 % (0.0-3.0); HEMATOCRIT 30.1 % (36.0-47.0); HEMOGLOBIN 10.5 g/dl (12.0-15.5); LYMPH # 1.7 10^3/uL (1.5-5.0); MEAN CORPUSCULAR HEMOGLOBIN 31.6 pg (27.0-33.0); MEAN CORPUSCULAR HGB CONC 34.9 g/dl (32.0-36.5); MEAN CORPUSCULAR VOLUME 90.7 fl (80.0-96.0); MONO # 0.6 10^3/uL (0.0-0.8); MONO % 6.9 % (2.0-8.0); NEUTROPHILS # 6.1 10^3/uL (1.5-8.5); NEUTROPHILS % 71.3 % (36.0-66.0); PLATELET COUNT, AUTOMATED 316 10^3/uL (150-450); RED BLOOD COUNT 3.32 10^6/uL (4.00-5.40); WHITE BLOOD COUNT 8.5 10^3/uL (4.0-10.0)
[2021-06-03 06:28] LABS: BLOOD UREA NITROGEN 16 MG/DL (7-18); CARBON DIOXIDE LEVEL 23 MEQ/L (21-32); CHLORIDE LEVEL 108 MEQ/L (98-107); CREATININE FOR GFR 0.96 MG/DL (0.55-1.30); GLOMERULAR FILTRATION RATE > 60.0 (>45); GLUCOSE, FASTING 81 MG/DL (70-100); POTASSIUM SERUM 4.3 MEQ/L (3.5-5.1); SODIUM LEVEL 140 MEQ/L (136-145)
[2021-06-03] MEDS ORDERED: SELF1KIT MC (07:36)
[2021-06-03] MEDS ORDERED: METO1TAB87 PO (07:39)
[2021-06-03] MEDS ORDERED: METO10TA2 PO (07:41)
[2021-06-03] MEDS ORDERED: SUCR1TA PO (07:41)
[2021-06-03] MEDS ORDERED: LIDO5TD TD (07:41)
[2021-06-03] MEDS ORDERED: OMEP-218 PO (07:41)
[2021-06-03] MEDS ORDERED: METOPROLOL TART 25 MG TABLET PO SCH (09:00)
[2021-06-03] MEDS ORDERED: ISOSORBIDE DIN. (ISORDIL) 20 MG TAB PO SCH (09:00)
[2021-06-03] MEDS ORDERED: OMEPRAZOLE 20 MG CAP PO SCH (09:00)
[2021-06-03] MEDS: SUCRALFATE 1 GM TAB PO SCH ×2 (09:27→12:00)
[2021-06-03 09:29] VITALS: BP 140/77
[2021-06-03] MEDS: METOCLOPRAMIDE 10 MG TAB PO SCH ×2 (09:30→12:00)
[2021-06-03] MEDS: LIDOCAINE 5% (LIDODERM) PATCH TD SCH (09:31)
--- NOTE | 2021-06-03 09:34 | DS.PDOC ---
Discharge Summary General Date of Admission Jun 01, 2021 at 17:27 Date of Discharge 06/03/21 Discharge Summary DISCHARGE DIAGNOSES: Acute kidney injury secondary to dehydration decreased oral intake from vomiting NSAID use Opioid induced nausea vomiting Chronic neck back pain secondary to thoracic and lumbar disc disease and disc bulges Hypercalcemia-multiple myeloma ruled out Uncontrolled hypertension DISCHARGE MEDICATIONS: SEE BELOW Discharge instructions: PCP to refer to GI for endoscopy if needed PCP appointment within 5 days PCP to refer to orthopedic surgery for chronic back pain HOSPITAL COURSE: This is a 61-year-old -[place] female admitted for acute kidney failure with hypercalcemia, being worked up for multiple myeloma, but negative skeletal x-ray and improving creatinine with I.V. fluids. Patient was taking non-steroidal anti-inflammatories along with her diuretics and ARB and had been vomiting due to opioids being given for back pain. She complained of right upper quadrant abdominal pain and epigastric pain evaluated for pulmonary embolism which was negative for gallstone disease with negative findings on CT abdomen and pelvis Creatinine has improved with I.V. fluid hydration. Hypercalcemia was treated with IV fluids skeletal x-ray was negative for for multiple myeloma. 1. Acute kidney injury secondary to NSAID use along with decreased oral intake in the setting of chronic hydrochlorothiazide and valsartan: Patient has improved with I.V. There is no hydronephrosis, kidney stone on CT abdomen and pelvis. due to hypercalcemia, bone pain and acute kidney injury patient is being worked up for multiple myeloma, but skeletal survey is reassuring and appears to be normal. Calcium level is back to normal after I.V. fluid hydration. Sent SPEP and UPEP. Daily weights and fluid being given which has shown improvement. 2. Intractable nausea and vomiting: Initially thought to be opioid induced since this all started after patient was placed on opioid narcotics as outpatient for back pain. At this time patient is uncontrolled, unable to keep any oral intake therefore metoprolol and Norvasc have been discontinued. She has been placed on Catapres patch and nitroglycerin patch for blood pressure control. Negative upper GI series with Gastrografin Resume back on 2 g sodium diet after tests. Reglan Carafate Protonix given Zofran as needed for nausea 3. Hyponatremia secondary to decreased oral intake with vomiting and dehydration, hypovolemia. Resolved with IV fluids currently 134 with no mental status changes, appropriate increase with less than 10 mEq over the past 24 hours. 4. Leukocytosis most likely reactive and prednisone induced; she was given prednisone as outpatient. 5. Thoracic and lumbar disc disease with disc bulges: Outpatient follow up. This is most likely causing much of her pain. she is currently on q6h Percocet, but it is causing nausea therefore she has been placed on Zofran, Reglan and Percocet 1 tablet every 4 hours with holding parameters for lethargy, altered mental status and respiratory depression. DISCHARGE PHYSICAL EXAM: VITAL SIGNS: See below General: Awake, alert, oriented to person, place and time, answering questions appropriately. No distress no pallor icterus or jaundice Neck: No JVD, thyromegaly or cervical lymphadenopathy. Lungs: Clear to auscultation, no wheezes, rhonchi or rales. Heart: S1 and S2 sinus rhythm. Abdomen: Soft with epigastric tenderness, no guarding or rebound. No CVA tenderness. Patient does have vertebral tenderness in the T4-T8 area. Extremities: No cyanosis, clubbing or pitting edema. LABORATORY DATA see chart IMAGING STUDIES: See chart MICROBIOLOGY: See chart TIME SPENT ON DISCHARGE: 30 MINUTES Vital Signs/I&Os Vital Signs Date Time Temp Pulse Resp B/P (MAP) Pulse Ox O2 Delivery O2 Flow Rate FiO2 06/03/21 06:13 16 06/03/21 06:00 98.2 56 142/80 (100) 97 Room Air I&O- Last 24 Hours up to 6 AM 06/03/21 06:00 Intake Total 2470 ml Output Total 1150 ml Balance 1320 ml Laboratory Data Labs 24H Laboratory Tests 2 06/02/21 13:19: Anion Gap 5L, Glomerular Filtration Rate 54.4, Calcium Level 9.6 06/02/21 14:22: Urine Color YELLOW, Urine Appearance CLEAR, Urine pH 6.0, Urine Specific [place] 1.017, Urine Protein NEGATIVE, Urine Glucose (UA) NEGATIVE, Urine Ketones NEGATIVE, Urine Blood NEGATIVE, Urine Nitrite NEGATIVE, Urine Bilirubin NEGATIVE, Urine Urobilinogen 0.2, Urine Leukocyte Esterase NEGATIVE, Urine WBC (Auto) 2, Urine RBC (Auto) 0, Urine Hyaline Casts (Auto) 1, Urine Bacteria (Auto) NEGATIVE, Urine Squamous Epithelial Cells 2, Urine Mucus (Auto) SMALL, Urine Sperm (Auto) 06/02/21 18:06: Anion Gap 6L, Glomerular Filtration Rate 53.9, Calcium Level 9.5 06/03/21 00:09: Anion Gap 6L, Glomerular Filtration Rate > 60.0, Calcium Level 8.7L 06/03/21 05:36: Immature Granulocyte % (Auto) 0.5, Neutrophils (%) (Auto) 71.3H, Lymphocytes (%) (Auto) 20.0L, Monocytes (%) (Auto) 6.9, Eosinophils (%) (Auto) 0.8, Basophils (%) (Auto) 0.5, Neutrophils # (Auto) 6.1, Lymphocytes # (Auto) 1.7, Monocytes # (Auto) 0.6, Eosinophils # (Auto) 0.1, Basophils # (Auto) 0.0, Nucleated Red Blood Cells % (auto) 0.0, Anion Gap 9, Glomerular Filtration Rate > 60.0, Calcium Level 9.0 CBC/BMP Laboratory Tests 06/02/21 13:19 06/02/21 18:06 06/03/21 00:09 06/03/21 05:36 Discharge Medications Scheduled Amlodipine Besylate (Amlodipine Besylate) 10 Mg Tablet, 10 MG PO DAILY Aspirin (Aspirin EC) 81 Mg Tablet.dr, 81 MG PO QHS, (Reported) Isosorbide Dinitrate (Isosorbide Dinitrate) 20 Mg Tablet, 20 MG PO BID Lidocaine (Aspercreme) 4% Adh..patch, 1 PATCH TOP QHS, (Reported) Lidocaine (Lidocaine) 5% Adh..patch, 2 PATCH TD DAILY Metoclopramide HCl (Metoclopramide HCl) 10 Mg Tablet, 10 MG PO ACHS Metoprolol Tartrate (Metoprolol Tartrate) 25 Mg Tablet, 25 MG PO DAILY Omeprazole (Omeprazole) 20 Mg Capsule.dr, 20 MG PO DAILY Simvastatin (Simvastatin) 20 Mg Tablet, 20 MG PO QHS, (Reported) Sucralfate (Sucralfate) 1 Gm Tablet, 1 GM PO ACHS Triamcinolone Acet (Triamcinolone Acetonide 0.1% Oint) 80 Gm Oint...g., 1 DOSE TOP QHS, (Reported) APPLY TO DRY SPOTS ON FEETS, HANDS AND ARMS Scheduled PRN Oxycodone/Acetaminophen (Oxycodone-Acetaminophen 5-325) 1 Each Tablet, 1 TAB PO Q4HP PRN for pain Allergies Coded Allergies: No Known Allergies (Verified Allergy, Unknown, 10/29/20) JAYY PADILLA MD Jun 03, 2021 09:28
[2021-06-03 18:08] LABS: FREE KAPPA LIGHT CHAINS SERUM 19.5 mg/L (3.3-19.4); FREE LAMBDA LIGHT CHAINS SERUM 10.3 mg/L (5.7-26.3); KAPPA/LAMBDA RATIO SERUM 1.89 (0.26-1.65)
[2021-06-08 07:12] LABS: FREE KAPPA LIGHT CHAINS URINE 106.12 mg/L (0.63-113.79); FREE LAMBDA LIGHT CHAINS URINE 9.12 mg/L (0.47-11.77); KAPPA/LAMBDA RATIO URINE 11.64 (1.03-31.76)
== END 2021-06-03 14:25 | disposition home or self-care (01) | DRG 469 ==
LOC: EDBD 12:55 → M ED 12:55 → M ED INP 17:27 → ENRESERV 20:18 → M MS5PR 23:05
PROVIDERS: ADMIT General Practice; ATTEND General Practice
DX: N17.9 Acute kidney failure, unspecified (principal); E87.1 Hypo-osmolality and hyponatremia; I10 Essential (primary) hypertension; E83.52 Hypercalcemia; M51.24 Other intervertebral disc displacement, thoracic region; E78.00 Pure hypercholesterolemia, unspecified; K21.9 Gastro-esophageal reflux disease without esophagitis; R10.11 Right upper quadrant pain; M85.88 Other specified disorders of bone density and structure, other site; R11.2 Nausea with vomiting, unspecified; M51.26 Other intervertebral disc displacement, lumbar region; T39.395A Adverse effect of other nonsteroidal anti-inflammatory drugs [NSAID], initial encounter; T40.605A Adverse effect of unspecified narcotics, initial encounter; E86.0 Dehydration; Z86.73 Personal history of transient ischemic attack (TIA), and cerebral infarction without residual deficits; Z79.82 Long term (current) use of aspirin; Z79.52 Long term (current) use of systemic steroids; Z87.891 Personal history of nicotine dependence; Z79.899 Other long term (current) drug therapy

== ENCOUNTER → 2021-06-01 | Outpatient (REF) | payer BC ==
[~2021-06-01] MED LIST changes: -BENZ200C70 PO; -ISOS20TA4 PO; +ISOS20TAB PO; -LIDO5TD TD; -METO10TA2 PO; -METO1TAB87 PO; -OMEP-218 PO; -SELF1KIT MC; -SUCR1TA PO
[2021-06-01 13:28] LABS: CK-MB VALUE MASS < 1.0 NG/ML (<3.6); CPK CREATINE PHOSPHOKINASE 100 U/L (26-192); TROPONIN I < 0.02 NG/ML (< 0.10)
== END ==
LOC: M SFHCPLAZ 12:42
PROVIDERS: ATTEND Physician Assistant Medical
DX: R07.81 Pleurodynia (principal)

== ENCOUNTER 2021-08-29 08:25 | Emergency (ER) | payer BC ==
[~2021-08-29] VITALS: Ht 160 cm; Wt 69.7 kg
[~2021-08-29 08:25] MED LIST changes: +ACET300T52; +ALEV220T22 PO; +AMLO1TAB25 PO; +ASPE4PAD2 TOP; +BACL10TA2; +GABA-1171; +ISOS20TA4 PO; +LIDO1.1P TOP; +LIDO5TD TD; +LOPR1TAB6 PO; +METO10TA2 PO; +METO1TAB32; +METO1TAB32 PO; +METO1TAB87 PO; +OMEP-173 PO; +PERCOCET PO; +PRED20TA; +SELF1KIT MC; +SUCR1TA PO; +TRIA1OI80 TOP
[2021-08-29] MEDS ORDERED: BENZ200C70 PO (12:07)
[2021-08-29 12:20] VITALS: BP 174/98
== END 2021-08-29 12:26 | disposition home or self-care (01) ==
LOC: M ED 08:25
DX: J06.9 Acute upper respiratory infection, unspecified (principal); B34.8 Other viral infections of unspecified site; Z79.899 Other long term (current) drug therapy; Z79.82 Long term (current) use of aspirin

== ENCOUNTER → 2021-11-07 | Outpatient (CLI) | payer BC ==
[~2021-11-07] MED LIST changes: +BENZ200C70 PO
[2021-11-07 10:39] LABS: BASO % 0.5 % (0.0-1.0); EOS # 0.2 10^3/uL (0.0-0.5); EOS % 3.4 % (0.0-3.0); HEMATOCRIT 39.2 % (36.0-47.0); HEMOGLOBIN 12.7 g/dl (12.0-15.5); LYMPH # 1.2 10^3/uL (1.5-5.0); LYMPH % 19.9 % (24.0-44.0); MEAN CORPUSCULAR HEMOGLOBIN 30.8 pg (27.0-33.0); MEAN CORPUSCULAR HGB CONC 32.4 g/dl (32.0-36.5); MEAN CORPUSCULAR VOLUME 95.1 fl (80.0-96.0); MONO # 0.5 10^3/uL (0.0-0.8); MONO % 7.8 % (2.0-8.0); NEUTROPHILS # 4.2 10^3/uL (1.5-8.5); NEUTROPHILS % 68.1 % (36.0-66.0); PLATELET COUNT, AUTOMATED 251 10^3/uL (150-450); RED BLOOD COUNT 4.12 10^6/uL (4.00-5.40); WHITE BLOOD COUNT 6.1 10^3/uL (4.0-10.0)
[2021-11-07 11:10] LABS: ALT/SGPT 26 U/L (12-78); BILIRUBIN,TOTAL 0.4 MG/DL (0.2-1.0); BLOOD UREA NITROGEN 18 MG/DL (7-18); CALCIUM LEVEL 9.2 MG/DL (8.8-10.2); CARBON DIOXIDE LEVEL 27 MEQ/L (21-32); CHLORIDE LEVEL 109 MEQ/L (98-107); CHOLESTEROL LEVEL 210 MG/DL (<200); CREATININE FOR GFR 0.75 MG/DL (0.55-1.30); GLOMERULAR FILTRATION RATE > 60.0 (>45); GLUCOSE, FASTING 79 MG/DL (70-100); HDL CHOLESTEROL 60 MG/DL (>40); LDL CHOLESTEROL 112 MG/DL (<100); NON-HDL-C 150 MG/DL; POTASSIUM SERUM 3.7 MEQ/L (3.5-5.1); SODIUM LEVEL 142 MEQ/L (136-145); TOTAL PROTEIN 6.6 GM/DL (6.4-8.2); TRIGLYCERIDES LEVEL 189 MG/DL (<150)
== END ==
LOC: M PLALAB 08:45
PROVIDERS: ATTEND Physician Assistant Medical
DX: I10 Essential (primary) hypertension (principal)

== ENCOUNTER 2021-11-29 16:33 | Emergency (ER) | payer OTHER, BC ==
[~2021-11-29] VITALS: Ht 160 cm; Wt 69.4 kg
[~2021-11-29 16:33] MED LIST changes: -BISAC5TA; -FURO20TA2 PO; -METO25TA4 PO; -OMEP40CA5
[2021-11-29] MEDS ORDERED: BISAC5TA (16:48)
[2021-11-29] MEDS ORDERED: METO25TA4 PO (16:48)
[2021-11-29] MEDS ORDERED: OMEP40CA5 (16:48)
[2021-11-29] MEDS ORDERED: KETOROLAC 30 MG/ML 1ML VIAL IV ONE ×2 (19:55→23:35)
[2021-11-29] MEDS ORDERED: METOPROLOL TART 25 MG TABLET PO ONE (20:15)
[2021-11-29 20:36] LABS: BASO % 0.5 % (0.0-1.0); EOS # 0.2 10^3/uL (0.0-0.5); EOS % 3.1 % (0.0-3.0); HEMATOCRIT 40.5 % (36.0-47.0); HEMOGLOBIN 13.5 g/dl (12.0-15.5); LYMPH # 1.8 10^3/uL (1.5-5.0); LYMPH % 23.2 % (24.0-44.0); MEAN CORPUSCULAR HEMOGLOBIN 31.8 pg (27.0-33.0); MEAN CORPUSCULAR HGB CONC 33.3 g/dl (32.0-36.5); MEAN CORPUSCULAR VOLUME 95.3 fl (80.0-96.0); MONO # 0.5 10^3/uL (0.0-0.8); NEUTROPHILS # 5.1 10^3/uL (1.5-8.5); NEUTROPHILS % 66.9 % (36.0-66.0); PLATELET COUNT, AUTOMATED 271 10^3/uL (150-450); RED BLOOD COUNT 4.25 10^6/uL (4.00-5.40); WHITE BLOOD COUNT 7.6 10^3/uL (4.0-10.0)
[2021-11-29 20:59] LABS: ALBUMIN 3.8 GM/DL (3.2-5.2); BILIRUBIN,DIRECT 0.1 MG/DL (0.0-0.2); BILIRUBIN,TOTAL 0.4 MG/DL (0.2-1.0); C REACTIVE PROTEIN QUANTITATIV 0.58 MG/DL (0.00-0.30)
[2021-11-29 21:01] LABS: ERYTHROCYTE SEDIMENTATION RATE 9 mm/hr (0-30)
[2021-11-29 21:02] LABS: INR 0.98; PROTHROMBIN TIME 13.4 SECONDS (12.7-14.5)
[2021-11-29 21:03] LABS: PARTIAL THROMBOPLASTIN TIME 30.3 SECONDS (25.9-37.0)
[2021-11-29 21:05] LABS: D-DIMER QUANT 1416.34 ng/ml (<500)
[2021-11-29] MEDS ORDERED: ISOVUE-370 76% 100ML VIAL As Ordered ONE (21:51)
[2021-11-29 22:20] LABS: CK-MB VALUE MASS 2.6 NG/ML (<3.6); MB/CK RELATIVE INDEX 0.99 (< OR =4)
[2021-11-29] MEDS ORDERED: FUROSEMIDE 40MG/4ML VIAL (J1940) IV ONE (23:45)
[2021-11-30 00:55] VITALS: BP 134/80
[2021-11-30] MEDS ORDERED: FURO20TA2 PO (01:12)
== END 2021-11-30 01:30 | disposition home or self-care (01) ==
LOC: M ED 16:33
DX: M79.602 Pain in left arm (principal); R91.8 Other nonspecific abnormal finding of lung field; E78.5 Hyperlipidemia, unspecified; I11.0 Hypertensive heart disease with heart failure; I50.9 Heart failure, unspecified
CPT/HCPCS: 71046; 71275; 73030; 73060; 73080; 80047; 80076; 82550; 82553; 84484; 85025; 85379; 85610; 85652; 85730; 86140; 93005; 93971; 96374; 96375; 96376; 99284; J1885; J1940; Q9967

== ENCOUNTER → 2021-11-29 | Outpatient (CLI) | payer BC ==
[~2021-11-29] MED LIST changes: +BISAC5TA; +FURO20TA2 PO; +METO25TA4 PO; +OMEP40CA5
== END ==
LOC: M WHC 15:24
PROVIDERS: ATTEND Physician Assistant Medical
DX: Z12.31 Encounter for screening mammogram for malignant neoplasm of breast (principal)

== ENCOUNTER → 2021-12-05 | Outpatient (REF) ==
[~2021-12-05] MED LIST changes: +BISAC5TA; +FURO20TA2 PO; +METO25TA4 PO; +OMEP40CA5
== END ==
LOC: M LABSMTC 09:28
PROVIDERS: ATTEND Family Medicine
DX: Z11.52 Encounter for screening for COVID-19 (principal)

== ENCOUNTER → 2022-01-02 | Outpatient (CLI) | payer BC | LOC: M CARPUL 11:59 | PROVIDERS: ATTEND Physician Assistant Medical | DX: J81.0 Acute pulmonary edema (principal) ==

== ENCOUNTER 2022-02-15 16:27 | Emergency (ER) | payer BC, OTHER ==
[2022-02-15] MEDS ORDERED: KETOROLAC TROMETHAMINE 10 MG TAB PO ONE (18:05)
[2022-02-15 20:20] VITALS: BP 160/82
== END 2022-02-15 20:28 | disposition home or self-care (01) ==
LOC: M ED 16:27
DX: S09.90XA Unspecified injury of head, initial encounter (principal); S16.1XXA Strain of muscle, fascia and tendon at neck level, initial encounter; V49.40XA Driver injured in collision with unspecified motor vehicles in traffic accident, initial encounter; M48.02 Spinal stenosis, cervical region; M50.20 Other cervical disc displacement, unspecified cervical region; Z86.73 Personal history of transient ischemic attack (TIA), and cerebral infarction without residual deficits; E78.5 Hyperlipidemia, unspecified; K21.9 Gastro-esophageal reflux disease without esophagitis; F41.9 Anxiety disorder, unspecified; F17.200 Nicotine dependence, unspecified, uncomplicated; Z79.82 Long term (current) use of aspirin; Z79.899 Other long term (current) drug therapy

== ENCOUNTER → 2022-03-16 | Outpatient (CLI) | payer OTHER ==
[2022-03-16 16:02] LABS: ALBUMIN 3.9 GM/DL (3.2-5.2); BILIRUBIN,TOTAL 0.2 MG/DL (0.2-1.0); CALCIUM LEVEL 9.9 MG/DL (8.8-10.2); CREATININE FOR GFR 1.19 MG/DL (0.55-1.30); GLOMERULAR FILTRATION RATE 59.7 (>45)
== END ==
LOC: M PLALAB 12:22
PROVIDERS: ATTEND Physician Assistant Medical
DX: I10 Essential (primary) hypertension (principal)

== ENCOUNTER → 2022-04-06 | Outpatient (CLI) | payer OTHER | LOC: M PLAIMG 15:13 | PROVIDERS: ATTEND Physician Assistant Medical | DX: R52 Pain, unspecified (principal) ==

== ENCOUNTER → 2022-08-23 | Outpatient (CLI) | payer OTHER | LOC: M PLAIMG 06:28 | PROVIDERS: ATTEND Physician Assistant Medical | DX: M54.12 Radiculopathy, cervical region (principal); M50.221 Other cervical disc displacement at C4-C5 level; M50.222 Other cervical disc displacement at C5-C6 level; M50.223 Other cervical disc displacement at C6-C7 level; M75.32 Calcific tendinitis of left shoulder ==

== ENCOUNTER → 2022-09-06 | Outpatient (CLI) | payer OTHER ==
[~2022-09-06] MED LIST changes: +**SFHN** LIDOCAINE 1% MDV 20ML VIAL ONE; +**SFHN** methylPREDNISolone 40MG 1ML VIAL ONE; +ISOVUE-300 61% 50ML VIAL ONE
== END ==
LOC: M PLAIMG 13:21
PROVIDERS: ATTEND Physician Assistant
DX: M75.42 Impingement syndrome of left shoulder (principal); M19.012 Primary osteoarthritis, left shoulder

== ENCOUNTER → 2022-09-19 | Outpatient (CLI) | payer OTHER ==
[~2022-09-19] MED LIST changes: -**SFHN** LIDOCAINE 1% MDV 20ML VIAL ONE; -**SFHN** methylPREDNISolone 40MG 1ML VIAL ONE; -ISOVUE-300 61% 50ML VIAL ONE
== END ==
LOC: M PLAIMG 15:25
PROVIDERS: ATTEND Physician Assistant Medical
DX: J06.9 Acute upper respiratory infection, unspecified (principal)

== ENCOUNTER 2022-10-17 23:12 | Emergency (ER) | payer BC, OTHER ==
[~2022-10-17] VITALS: Ht 161.3 cm; Wt 69.4 kg
[2022-10-18] MEDS ORDERED: ISOVUE-370 76% 100ML VIAL As Ordered ONE (03:49)
[2022-10-18 04:17] LABS: BASO # 0.1 10^3/uL (0.0-0.2); BASO % 0.7 % (0.0-1.0); EOS # 0.3 10^3/uL (0.0-0.5); EOS % 4.8 % (0.0-3.0); HEMATOCRIT 38.7 % (36.0-47.0); HEMOGLOBIN 12.5 g/dl (12.0-15.5); LYMPH # 1.5 10^3/uL (1.5-5.0); LYMPH % 20.6 % (24.0-44.0); MEAN CORPUSCULAR HEMOGLOBIN 30.8 pg (27.0-33.0); MEAN CORPUSCULAR HGB CONC 32.3 g/dl (32.0-36.5); MEAN CORPUSCULAR VOLUME 95.3 fl (80.0-96.0); MONO # 0.7 10^3/uL (0.0-0.8); MONO % 9.4 % (2.0-8.0); NEUTROPHILS # 4.6 10^3/uL (1.5-8.5); NEUTROPHILS % 64.2 % (36.0-66.0); PLATELET COUNT, AUTOMATED 261 10^3/uL (150-450); RED BLOOD COUNT 4.06 10^6/uL (4.00-5.40); WHITE BLOOD COUNT 7.1 10^3/uL (4.0-10.0)
[2022-10-18] MEDS ORDERED: AMPICILLIN SOD/SULBACTAM SOD 3 GM in D5W MINI-BAG PLUS 100 ML IV ONE (04:30)
[2022-10-18 04:53] LABS: RSV AMPLIFICATION NEGATIVE (NEGATIVE)
[2022-10-18 04:57] LABS: ERYTHROCYTE SEDIMENTATION RATE 42 mm/hr (0-30)
[2022-10-18 05:40] VITALS: BP 137/72
[2022-10-18] MEDS ORDERED: KETOROLAC 30 MG/ML 1ML VIAL IV ONE (05:40)
[2022-10-18] MEDS ORDERED: KETO10TAB PO (05:41)
[2022-10-18] MEDS ORDERED: AMOX875T2 PO (05:41)
== END 2022-10-18 05:56 | disposition home or self-care (01) ==
LOC: M ED 23:12
DX: K04.7 Periapical abscess without sinus (principal); I10 Essential (primary) hypertension; K21.9 Gastro-esophageal reflux disease without esophagitis; F17.200 Nicotine dependence, unspecified, uncomplicated; Z79.899 Other long term (current) drug therapy

== ENCOUNTER → 2022-11-21 | Outpatient (CLI) | payer OTHER ==
[~2022-11-21] MED LIST changes: +AMOX875T2 PO
== END ==
LOC: M PLAIMG 15:41
PROVIDERS: ATTEND Physician Assistant Medical
DX: M79.604 Pain in right leg (principal)

== ENCOUNTER → 2022-12-15 | Outpatient (CLI) | payer BC | LOC: M PLARAD 10:30 | PROVIDERS: ATTEND Physician Assistant Medical | DX: M79.604 Pain in right leg (principal) ==

== ENCOUNTER → 2023-03-27 | Outpatient (CLI) | payer BC ==
[2023-03-27 18:31] LABS: BASO # 0.1 10^3/uL (0.0-0.2); BASO % 0.8 % (0.0-1.0); EOS # 0.4 10^3/uL (0.0-0.5); EOS % 5.5 % (0.0-3.0); HEMATOCRIT 44.7 % (36.0-47.0); HEMOGLOBIN 14.7 g/dl (12.0-15.5); LYMPH # 1.6 10^3/uL (1.5-5.0); LYMPH % 20.7 % (24.0-44.0); MEAN CORPUSCULAR HEMOGLOBIN 31.5 pg (27.0-33.0); MEAN CORPUSCULAR HGB CONC 32.9 g/dl (32.0-36.5); MEAN CORPUSCULAR VOLUME 95.9 fl (80.0-96.0); MONO # 0.6 10^3/uL (0.0-0.8); MONO % 7.7 % (2.0-8.0); NEUTROPHILS # 4.9 10^3/uL (1.5-8.5); NEUTROPHILS % 64.9 % (36.0-66.0); PLATELET COUNT, AUTOMATED 259 10^3/uL (150-450); RED BLOOD COUNT 4.66 10^6/uL (4.00-5.40); WHITE BLOOD COUNT 7.6 10^3/uL (4.0-10.0)
[2023-03-27 19:04] LABS: ALBUMIN 4.8 G/DL (3.2-5.2); BILIRUBIN,TOTAL 0.7 MG/DL (0.3-1.2); CHOLESTEROL RISK RATIO 3.82 (<5); CREATININE FOR GFR 1.37 MG/DL (0.55-1.30); GLOMERULAR FILTRATION RATE 50.4 (>45); HDL CHOLESTEROL 64.8 MG/DL (>40); LDL CHOLESTEROL 142.6 MG/DL (<100); NON-HDL-C 183.2 MG/DL; POTASSIUM SERUM 4.1 MMOL/L (3.5-5.1); TOTAL PROTEIN 7.5 G/DL (5.7-8.2)
== END ==
LOC: M PLALAB 14:47
PROVIDERS: ATTEND Physician Assistant Medical
DX: M25.561 Pain in right knee (principal)

== ENCOUNTER → 2024-03-22 | Outpatient (REF) | payer BC ==
[~2024-03-22] MED LIST changes: +TAMS1CAP17
== END ==
LOC: M LAB REF 18:18
PROVIDERS: ATTEND Physician Assistant
DX: R10.30 Lower abdominal pain, unspecified (principal)

== ENCOUNTER 2024-03-24 09:25 | Emergency (ER) | payer BC ==
[~2024-03-24] VITALS: Ht 160 cm; Wt 69.3 kg
[~2024-03-24 09:25] MED LIST changes: -TAMS1CAP17
[2024-03-24] MEDS ORDERED: TAMS1CAP17 (09:48)
[2024-03-24 10:35] LABS: BASO % 0.9 % (0.0-1.0); EOS # 0.2 10^3/uL (0.0-0.5); EOS % 4.8 % (0.0-3.0); HEMATOCRIT 40.7 % (36.0-47.0); HEMOGLOBIN 14.2 g/dl (12.0-15.5); LYMPH % 20.7 % (24.0-44.0); MEAN CORPUSCULAR HEMOGLOBIN 32.6 pg (27.0-33.0); MEAN CORPUSCULAR HGB CONC 34.9 g/dl (32.0-36.5); MEAN CORPUSCULAR VOLUME 93.6 fl (80.0-96.0); MONO # 0.4 10^3/uL (0.0-0.8); MONO % 7.6 % (2.0-8.0); NEUTROPHILS % 65.8 % (36.0-66.0); PLATELET COUNT, AUTOMATED 195 10^3/uL (150-450); RED BLOOD COUNT 4.35 10^6/uL (4.00-5.40); WHITE BLOOD COUNT 4.6 10^3/uL (4.0-10.0)
[2024-03-24 11:08] LABS: BILIRUBIN,DIRECT 0.1 MG/DL (<0.4); BILIRUBIN,TOTAL 0.5 MG/DL (0.3-1.2); CALCIUM LEVEL 9.9 MG/DL (8.3-10.6); CREATININE FOR GFR 1.43 MG/DL (0.55-1.30); GLOMERULAR FILTRATION RATE 47.8 (>45); POTASSIUM SERUM 4.1 MMOL/L (3.5-5.1); TOTAL PROTEIN 6.8 G/DL (5.7-8.2)
[2024-03-24] MEDS: KETOROLAC 30 MG/ML 1ML VIAL IM ONE (12:19)
[2024-03-24 13:15] VITALS: BP 151/118; TEMP 96.6; O2SAT 99
== END 2024-03-24 13:16 | disposition home or self-care (01) ==
LOC: M ED 09:25
DX: R10.32 Left lower quadrant pain (principal); I10 Essential (primary) hypertension; F17.210 Nicotine dependence, cigarettes, uncomplicated; Z79.1 Long term (current) use of non-steroidal anti-inflammatories (NSAID); Z79.899 Other long term (current) drug therapy
CPT/HCPCS: 74176; 80048; 80076; 81001; 83690; 85025; 96372; 99284; J1885

== ENCOUNTER → 2024-04-02 | Outpatient (CLI) | payer BC ==
[~2024-04-02] MED LIST changes: +TAMS1CAP17
[2024-04-02 17:15] LABS: APPEARANCE, URINE CLEAR (CLEAR); BACTERIA, URINE AUTO NEGATIVE (NEGATIVE); BILIRUBIN, URINE AUTO NEGATIVE (NEGATIVE); BLOOD, URINE BLOOD NEGATIVE (NEGATIVE); COLOR, URINE YELLOW (YELLOW); GLUCOSE, URINE (UA) AUTO NEGATIVE (NEGATIVE); KETONE, URINE AUTO NEGATIVE (NEGATIVE); LEUKOCYTE ESTERASE, URINE AUTO NEGATIVE (NEGATIVE); NITRITE, URINE AUTO NEGATIVE (NEGATIVE); PROTEIN, URINE AUTO NEGATIVE (NEGATIVE); RBC, URINE AUTO 0 /HPF (0-3); SPECIFIC GRAVITY URINE AUTO 1.014 (1.002-1.035); SQUAMOUS EPITHELIAL CELL UR AU 2 /HPF (0-6); UROBILINOGEN, URINE AUTO 0.2 mg/dL (0.0-2.0); WBC, URINE AUTO 1 /HPF (0-3)
[2024-04-02 18:53] LABS: BASO # 0.1 10^3/uL (0.0-0.2); BASO % 0.8 % (0.0-1.0); EOS # 0.4 10^3/uL (0.0-0.5); EOS % 4.6 % (0.0-3.0); HEMATOCRIT 41.6 % (36.0-47.0); LYMPH # 1.7 10^3/uL (1.5-5.0); LYMPH % 21.1 % (24.0-44.0); MEAN CORPUSCULAR HEMOGLOBIN 32.4 pg (27.0-33.0); MEAN CORPUSCULAR HGB CONC 33.7 g/dl (32.0-36.5); MEAN CORPUSCULAR VOLUME 96.3 fl (80.0-96.0); MONO # 0.6 10^3/uL (0.0-0.8); MONO % 7.9 % (2.0-8.0); NEUTROPHILS # 5.2 10^3/uL (1.5-8.5); NEUTROPHILS % 65.3 % (36.0-66.0); PLATELET COUNT, AUTOMATED 254 10^3/uL (150-450); RED BLOOD COUNT 4.32 10^6/uL (4.00-5.40)
[2024-04-02 19:19] LABS: ALBUMIN 4.5 G/DL (3.2-5.2); BILIRUBIN,TOTAL 0.4 MG/DL (0.3-1.2); CALCIUM LEVEL 10.6 MG/DL (8.3-10.6); CREATININE FOR GFR 1.71 MG/DL (0.55-1.30); GLOMERULAR FILTRATION RATE 38.9 (>45); POTASSIUM SERUM 4.3 MMOL/L (3.5-5.1); TOTAL PROTEIN 7.3 G/DL (5.7-8.2)
== END ==
LOC: M PLALAB 15:41
PROVIDERS: ATTEND Physician Assistant Medical
DX: N30.90 Cystitis, unspecified without hematuria (principal); R19.7 Diarrhea, unspecified; R93.89 Abnormal findings on diagnostic imaging of other specified body structures; R10.32 Left lower quadrant pain; R11.0 Nausea

== ENCOUNTER → 2024-04-08 | Outpatient (CLI) | payer BC | LOC: M RAD 13:31 | PROVIDERS: ATTEND Physician Assistant Medical | DX: R19.7 Diarrhea, unspecified (principal) ==

== ENCOUNTER → 2024-05-08 | Outpatient (CLI) | payer BC | LOC: M WHC 14:32 | PROVIDERS: ATTEND Nurse Practitioner Family | DX: Z12.31 Encounter for screening mammogram for malignant neoplasm of breast (principal) ==

== ENCOUNTER → 2024-05-12 | Outpatient (REF) | LOC: M EMP 10:22 | PROVIDERS: ATTEND Family Medicine | DX: Z11.52 Encounter for screening for COVID-19 (principal) ==

== ENCOUNTER → 2024-06-27 | Outpatient (CLI) | payer BC ==
[2024-06-27 13:27] LABS: BASO # 0.1 10^3/uL (0.0-0.2); BASO % 0.8 % (0.0-1.0); EOS # 0.3 10^3/uL (0.0-0.5); EOS % 5.3 % (0.0-3.0); HEMATOCRIT 37.7 % (36.0-47.0); HEMOGLOBIN 12.9 g/dl (12.0-15.5); LYMPH # 1.6 10^3/uL (1.5-5.0); LYMPH % 25.9 % (24.0-44.0); MEAN CORPUSCULAR HEMOGLOBIN 32.8 pg (27.0-33.0); MEAN CORPUSCULAR HGB CONC 34.2 g/dl (32.0-36.5); MEAN CORPUSCULAR VOLUME 95.9 fl (80.0-96.0); MONO # 0.4 10^3/uL (0.0-0.8); MONO % 7.2 % (2.0-8.0); NEUTROPHILS # 3.6 10^3/uL (1.5-8.5); NEUTROPHILS % 60.3 % (36.0-66.0); PLATELET COUNT, AUTOMATED 250 10^3/uL (150-450); RED BLOOD COUNT 3.93 10^6/uL (4.00-5.40)
[2024-06-27 13:32] LABS: ALBUMIN 4.1 G/DL (3.2-5.2); BILIRUBIN,TOTAL 0.4 MG/DL (0.3-1.2); CREATININE FOR GFR 1.75 MG/DL (0.55-1.30); GLOMERULAR FILTRATION RATE 37.9 (>45); POTASSIUM SERUM 3.9 MMOL/L (3.5-5.1); TOTAL PROTEIN 7.4 G/DL (5.7-8.2)
== END ==
LOC: M PLALAB 10:22
PROVIDERS: ATTEND Physician Assistant Medical
DX: I10 Essential (primary) hypertension (principal)

== ENCOUNTER → 2024-11-20 | Outpatient (REF) | LOC: M EMP 09:26 | PROVIDERS: ATTEND Family Medicine | DX: Z01.89 Encounter for other specified special examinations (principal) ==

== ENCOUNTER → 2024-11-20 | Outpatient (CLI) | payer BC | LOC: M PLAIMG 15:15 | PROVIDERS: ATTEND Physician Assistant Medical | DX: J20.9 Acute bronchitis, unspecified (principal) ==

== ENCOUNTER → 2024-12-16 | Outpatient (REF) | payer BC | LOC: M LAB REF 16:30 | PROVIDERS: ATTEND Surgery | DX: L72.3 Sebaceous cyst (principal) ==

== ENCOUNTER → 2025-06-26 | Outpatient (REF) ==
[2025-06-26 14:34] LABS: SOFIA COVID ANTIGEN NEGATIVE (NEGATIVE)
== END ==
LOC: M EMP 13:37
PROVIDERS: ATTEND Family Medicine
DX: Z11.52 Encounter for screening for COVID-19 (principal)

== ENCOUNTER → 2025-07-02 | Outpatient (CLI) | payer BC ==
[2025-07-02 14:10] LABS: ALT/SGPT 16.0 U/L (7.0-40); AST/SGOT 19.0 U/L (<34); CALCIUM LEVEL 9.8 MG/DL (8.3-10.6); CARBON DIOXIDE LEVEL 24.0 MMOL/L (20-31); CHLORIDE LEVEL 105.0 MMOL/L (98-107); CHOLESTEROL LEVEL 244.0 MG/DL (<200); CHOLESTEROL RISK RATIO 3.84 (<5); CREATININE FOR GFR 1.6 MG/DL (0.55-1.30); GLOMERULAR FILTRATION RATE 35.8 (>45); LDL CHOLESTEROL 164.6 MG/DL (<100); NON-HDL-C 180.6 MG/DL; POTASSIUM SERUM 4.4 MMOL/L (3.5-5.1); SODIUM LEVEL 137.0 MMOL/L (136-145); TRIGLYCERIDES LEVEL 80.0 MG/DL (<150)
[2025-07-02 14:27] LABS: BASO # 0.0 10^3/uL (0.0-0.2); BASO % 0.5 % (0.0-1.0); EOS # 0.3 10^3/uL (0.0-0.5); EOS % 4.1 % (0.0-3.0); LYMPH # 1.3 10^3/uL (1.5-5.0); LYMPH % 17.6 % (24.0-44.0); MONO # 0.5 10^3/uL (0.0-0.8); MONO % 7.1 % (2.0-8.0); NEUTROPHILS # 5.1 10^3/uL (1.5-8.5); NEUTROPHILS % 70.3 % (36.0-66.0); PLATELET COUNT, AUTOMATED 203 10^3/uL (150-450)
== END ==
LOC: M PLALAB 10:27
PROVIDERS: ATTEND Physician Assistant Medical
DX: I10 Essential (primary) hypertension (principal); J30.2 Other seasonal allergic rhinitis; E78.00 Pure hypercholesterolemia, unspecified

== ENCOUNTER 2025-08-11 14:56 | Emergency (ER) | payer BC ==
[~2025-08-11] VITALS: Ht 160 cm; Wt 68.4 kg
[2025-08-11 14:58] VITALS: BP 140/82; TEMP 98.3; O2SAT 100
[2025-08-11] MEDS ORDERED: CHLO50TA (15:21)
[2025-08-11] MEDS ORDERED: SPIR-10 PO (15:21)
[2025-08-11] MEDS ORDERED: ACET-907 PO (15:22)
[2025-08-11] MEDS: IBUPROFEN 600 MG TAB PO ONE (18:33)
== END 2025-08-11 18:42 | disposition home or self-care (01) ==
LOC: M ED 14:56
DX: S83.91XA Sprain of unspecified site of right knee, initial encounter (principal); Y92.019 Unspecified place in single-family (private) house as the place of occurrence of the external cause; Y93.9 Activity, unspecified; Y99.9 Unspecified external cause status; W10.8XXA Fall (on) (from) other stairs and steps, initial encounter; I10 Essential (primary) hypertension; F17.210 Nicotine dependence, cigarettes, uncomplicated; F10.10 Alcohol abuse, uncomplicated; Z79.1 Long term (current) use of non-steroidal anti-inflammatories (NSAID); Z79.899 Other long term (current) drug therapy